=== PATIENT | male | born 1975 | race Caucasian/White ===

== ENCOUNTER 2016-11-26 07:32 | Emergency (ER) | payer MEDICAID ==
[2016-11-26 07:43] VITALS: BP 144/93
--- NOTE | 2016-11-26 07:59 | ER Document Report ---
HPI - HPI Patient complains to provider of: sore throat Onset: Yesterday Severity: Mild Pain Level: 2 Context: Patient presents to the emergency department with reports of sore throat that started yesterday. He reports he felt a little congested yesterday and this morning started hurting. He denies trouble swallowing. Reports children past history of strep. Denies other symptoms such as fever vomiting diarrhea. Associated Symptoms: Sore throat Exacerbated by: Denies Relieved by: Denies Similar symptoms previously: No Recently seen / treated by doctor: No - REPRODUCTIVE Reproductive: DENIES: : - DERM Skin Color: Normal Past Medical History - General Information source: Patient - Social History Smoking Status: Never Smoker Chew tobacco use (# tins/day): No Frequency of alcohol use: None Drug Abuse: None Lives with: Family Family History: CAD, DM, Hypertension Patient has suicidal ideation: No Patient has homicidal ideation: No - Past Medical History Cardiac Medical History: Reports: Hx Hypercholesterolemia, Hx Hypertension Denies: Hx Coronary Artery Disease, Hx Heart Attack Pulmonary Medical History: Reports: Hx Asthma - IN CHILDHOOD, Hx Pneumonia - pt states at least 10 years ago Denies: Hx Bronchitis, Hx COPD Neurological Medical History: Reports: Hx Seizures - LAST SEIZURE 05/02/16, POSSIBLY 2-3/DAY OR 1/WEEK,OFTEN AT NIGHT. Denies: Hx Cerebrovascular Accident Endocrine Medical History: Reports: Hx Diabetes Mellitus Type 1, Hx Diabetes Mellitus Type 2 Renal/ Medical History: Denies: Hx Peritoneal Dialysis GI Medical History: Reports: Hx Ulcer - WHEN HE WAS 12 TOOK MEDS FOR 1 YEAR. Denies: Hx Hepatitis, Hx Hiatal Hernia Musculoskeltal Medical History: Reports Hx Arthritis Psychiatric Medical History: Reports: Hx Anxiety, Hx Depression Infectious Medical History: Denies: Hx Hepatitis Past Surgical History: Reports: Hx Abdominal Surgery - hernia repair, Hx Cardiac Catheterization, Hx Orthopedic Surgery - rt foot. Denies: Hx Open Heart Surgery, Hx Pacemaker - Immunizations Immunizations up to date: Yes Hx Diphtheria, Pertussis, Tetanus Vaccination: Yes Hx Pneumococcal Vaccination: 07/17/15 Vertical Provider Document - CONSTITUTIONAL Agree With Documented VS: Yes Exam Limitations: No Limitations General Appearance: WD/WN, No Apparent Distress - INFECTION CONTROL TRAVEL OUTSIDE OF THE [place] IN LAST 30 DAYS: No - HEENT HEENT: Atraumatic, Normocephalic, Pharyngeal Erythema - No peritonsillar abscess good clear voice no trismus. negative: Pharyngeal Exudate - NECK Neck: Normal Inspection, Supple - RESPIRATORY Respiratory: Breath Sounds Normal, No Respiratory Distress O2 Sat by Pulse Oximetry: 100 - CARDIOVASCULAR Cardiovascular: Regular Rate - GI/ABDOMEN Gastrointestinal: Abdomen Soft, Abdomen Non-Tender - NEURO Level of Consciousness: Awake, Alert, Appropriate Motor/Sensory: No Motor Deficit - DERM Integumentary: Warm, Dry Course - Re-evaluation Re-evalutation: 11/26/16 Patient instructed on antibiotics. Patient also instructed on warm salt water gargles follow up with his primary care provider for recheck within 1 week. - Vital Signs Vital signs: Temp Pulse Resp BP Pulse Ox 97.3 F 93 20 144/93 H 100 11/26/16 07:40 11/26/16 07:40 11/26/16 07:40 11/26/16 07:40 11/26/16 07:40 Discharge - Discharge Clinical Impression: Sore throat, Strep throat exposure, Elevated blood pressure reading Condition: Stable Disposition: HOME, SELF-CARE Instructions: Sore Throat ([facility]), Penicillin V K ([facility]) Additional Instructions: *You have been evaluated for a sore throat, strep throat exposure *Take medication as prescribed *Warm salt water gargles and throat lozenges for comfort *Change toothbrush after two days of antibiotics *Do not let anyone drink/eat after you *Good hand washing *Follow-up with Dr Rene within one week for recheck *Return to ED for worsening condition change, needs Prescriptions: Penicillin V Potassium [Penicillin Vk 500 mg Tablet] 500 mg PO BID #20 tablet Forms: Elevated Blood Pressure Referrals: BIANKA HERNANDEZ DO [Primary Care Provider] - Follow up as needed
== END 2016-11-26 08:07 | disposition home or self-care (01) ==
LOC: ER 07:32
DX: J02.9 Acute pharyngitis, unspecified (principal); Z20.818 Contact with and (suspected) exposure to other bacterial communicable diseases; I10 Essential (primary) hypertension; E11.9 Type 2 diabetes mellitus without complications
CPT/HCPCS: 99282

== ENCOUNTER → 2016-12-02 | Outpatient (CLI) | payer MEDICAID | LOC: OD 09:56 | PROVIDERS: ATTEND Family Medicine | DX: M25.511 Pain in right shoulder (principal) ==

== ENCOUNTER 2016-12-31 11:30 | Emergency (ER) | payer MEDICAID ==
--- NOTE | 2016-12-31 12:21 | ER Document Report ---
ED Fall - General Chief Complaint: Fall Stated Complaint: FALL Notes: Patient is a 41-year-old male who presents emergency Department complaining of unwitnessed fall. States that this morning he was in the bathroom is getting up to leave and he fell. Patient is unsure if he tripped and fell or if he had a seizure. He doesn't remember. This was unwitnessed. He states that he has headache and pain to palpation over the right part of his thigh and right top of his head. States he has not pain that he has been able to move his neck without any difficulty. He also admits to right wrist pain and right hand pain. He denies any new back pain, hip pain. He has been able to ambulate since he fell. 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 Patient states that he has grandma seizures but has been put on Klonopin and Xanax. States that he is not on any antiepileptics because of allergies. His neurologist is in [place], he is due to see him March 15. PCP is Dr. Prescott. Past medical history significant for grand mal seizures from previous trauma, degenerative disc disease, diabetes, hypertension, peripheral neuropathy ROS does reveal that he has had a cough, that is been productive of greenish sputum for a couple of days. Denies any fevers or chills. Shortness of breath or wheezing. TRAVEL OUTSIDE OF THE [place] IN LAST 30 DAYS: No - Related data Allergies/Adverse Reactions: sertraline HCl [From Zoloft] Allergy (Severe, Verified 12/31/16 12:55) Seizures Dexbrompheniramine [From Drixoral Cold & Flu] Allergy (Intermediate, Verified 12:55) Rapid Irregular Heart Rate pseudoephedrine HCl [From Drixoral Cold & Flu] Allergy (Intermediate, Verified 12/31/16 12:55) Rapid Irregular Heart Rate carbamazepine [From Tegretol] Adverse Reaction (Severe, Verified 12/31/16 12:55) SEIZURE ACTIVITY WHEN COMBINED WITH LAMICTAL lamotrigine [From Lamictal] Adverse Reaction (Severe, Verified 12/31/16 12:55) SEIZURE ACTIVITY WHEN COMBINED WITH TEGRETOL buprenorphine [From Butrans] Adverse Reaction (Intermediate, Verified 12/31/16 12:55) RASH/ITCHING bees Adverse Reaction (Intermediate, Uncoded 12/31/16 12:55) SWELLING AT SITE Past Medical History - Social History Smoking Status: Never Smoker Family History: CAD, DM, Hypertension - Past Medical History Cardiac Medical History: Reports: Hx Hypercholesterolemia, Hx Hypertension Denies: Hx Coronary Artery Disease, Hx Heart Attack Pulmonary Medical History: Reports: Hx Asthma - IN CHILDHOOD, Hx Pneumonia - pt states at least 10 years ago Denies: Hx Bronchitis, Hx COPD Neurological Medical History: Reports: Hx Seizures - LAST SEIZURE 05/02/16, POSSIBLY 2-3/DAY OR 1/WEEK,OFTEN AT NIGHT. Denies: Hx Cerebrovascular Accident Endocrine Medical History: Reports: Hx Diabetes Mellitus Type 1, Hx Diabetes Mellitus Type 2 Renal/ Medical History: Denies: Hx Peritoneal Dialysis GI Medical History: Reports: Hx Ulcer - WHEN HE WAS 12 TOOK MEDS FOR 1 YEAR. Denies: Hx Hepatitis, Hx Hiatal Hernia Musculoskeltal Medical History: Reports Hx Arthritis Psychiatric Medical History: Reports: Hx Anxiety, Hx Depression Infectious Medical History: Denies: Hx Hepatitis Past Surgical History: Reports: Hx Abdominal Surgery - hernia repair, Hx Cardiac Catheterization, Hx Orthopedic Surgery - rt foot. Denies: Hx Open Heart Surgery, Hx Pacemaker - Immunizations Immunizations up to date: Yes Hx Diphtheria, Pertussis, Tetanus Vaccination: Yes Hx Pneumococcal Vaccination: 07/17/15 Review of Systems - Review of Systems Constitutional: No symptoms reported EENT: No symptoms reported Cardiovascular: No symptoms reported Respiratory: See HPI Gastrointestinal: No symptoms reported Genitourinary: No symptoms reported Male Genitourinary: No symptoms reported Musculoskeletal: See HPI Skin: No symptoms reported Hematologic/Lymphatic: No symptoms reported Neurological/Psychological: See HPI Physical Exam - Vital signs Vitals: Resp Pulse Ox 18 91 L 12/31/16 12:00 12/31/16 12:00 - Notes Notes: PHYSICAL EXAM GENERAL: Alert, interacts well. HEAD: Normocephalic, atraumatic. Tenderness over the right eye. No evidence of deformity, ecchymosis EYES: Pupils equal, round, and reactive to light. Extraocular movements intact. ENT: Oral mucosa moist, tongue midline. NECK: Full range of motion. Supple. Trachea midline. LUNGS: Chest tender over right rib cage. No evidence of crepitus, deformities, flail segment, ecchymosis. Clear to auscultation bilaterally, no wheezes, rales , or rhonchi. No respiratory distress. HEART: Regular rate and rhythm. No murmurs, gallops, or rubs. ABDOMEN: Soft, nondistended, nontender. No guarding, rebound, or rigidity.. Bowel sounds present in all 4 quadrants. EXTREMITIES: Moves all 4 extremities spontaneously. No edema, radial and dorsalis pedis pulses 2/4 bilaterally. No cyanosis. Tenderness to palpation of the right hand and right wrist. Otherwise right arm without any tenderness. NEUROLOGICAL: Alert and oriented x4. Normal speech. PSYCH: Normal affect, normal mood. SKIN: Warm, dry, normal turgor. No rashes or lesions noted. Course - Re-evaluation Re-evalutation: 12/31/16 13:31 Patient is a 41-year-old male who presents emergency department after a fall today. States he may have slipped but wasnt sure if he had a seizure. He is currently alert and oriented 4, hemodynamically stable, no acute distress and afebrile. He did have witnessed seizure activity was in the department. Patient reports that he did not take his daily morning medications. CT the head and neck do not reveal any acute injury or bleed. The hand and wrist x- ray are negative, chest x-ray is also negative. Patient does have an elevated white blood cell count at 15.6 and patient states he has had a productive cough with green sputum. We will treat clinically for pneumonia. Per [facility] protocol and guidelines, this case was discussed with supervising physician Dr. Gianluca Angel prior to discharge - Vital Signs Vital signs: Temp Pulse Resp BP Pulse Ox 99.1 F 119 H 20 124/86 H 92 12/31/16 15:00 12/31/16 15:36 12/31/16 15:36 12/31/16 15:00 12/31/16 15:36 - Laboratory Result Diagrams: 12/31/16 12:00 12/31/16 12:00 Laboratory results interpreted by me: 12/31/16 12/31/16 12/31/16 11:38 12:00 12:00 WBC 15.6 H Absolute Neutrophils 12.0 H Chloride 96 L Glucose 255 H POC Glucose 250 H Urine Glucose (UA) 12/31/16 13:43 WBC Absolute Neutrophils Chloride Glucose POC Glucose Urine Glucose (UA) >=500 H - Diagnostic Test Radiology reviewed: Image reviewed, Reports reviewed Discharge - Discharge Clinical Impression: Asthma, Fall Condition: Good Disposition: HOME, SELF-CARE Instructions: Ice Packs (OM) Additional Instructions: -You did not sustain any injury during her fall today. -Please follow-up with your primary care provider next week ASTHMA: You have been diagnosed as having asthma. This is a condition where there is episodic tightness in the bronchial tubes. Allergies, infections, and polluted or cold air may be contributing factors. Emergency treatment of a severe asthma attack may include adrenaline shots , or bronchodilator aerosol. You may feel lightheaded, have a decreased exercise tolerance and a rapid pulse for an hour or two. Rest and get plenty of fluids. Home treatment of asthma requires bronchodilator drugs. These can be administered by injection, inhalation, or by mouth. Antibiotics and corticosteroids may be required for some patients. You should avoid chemical fumes, dusts, pollens, and exercising in very cold or dry air. If you smoke, stop!! If you develop a fever, increased wheezing, chest pain, or severe shortness of breath, you should contact the doctor immediately. STEROID MEDICATION: You have been given an injection of or oral medicine of the cortisone/ steroid class. This medication is used to control inflammation or allergy. Frank t is usually only given for a short period of time, until the acute process subsides. There are usually no side effects from short-term use of cortisone-like medications. Some persons feel an increased sense of well-being and are not sleepy at bedtime. Long-term use of cortisone medications is best avoided, unless required for a severe condition. If your condition does not remit, or relapses after the course of corticosteroid medication, you should consult your physician. INHALED BRONCHODILATORS: You have received treatment(s) of and/or prescription for an inhaled bronchodilator -- a medication which stimulates the airways in the lung to dilate. This improves the flow of air in asthma, bronchitis, and emphysema. These medicines have some similarity to adrenaline, and can cause similar side effects: shakiness, racing heart, and a sense of nervousness. These side effects decrease with time. Contact your doctor if these side effects are severe. Do not over-use the medicine. Too-frequent use of the inhaler may make it ineffective. Call your doctor if the inhaler is not controlling your symptoms at the prescribed doses. SMOKING: If you smoke, you should stop smoking. The tar and chemicals in cigarette smoke are harmful. Smoking has been shown to cause: emphysema chronic bronchitis lung cancer mouth and throat cancer stomach and pancreas cancer premature aging defects In addition, smoking increases ear and lung infections in children of smokers. ANTIBIOTIC THERAPY: You have been given an antibiotic prescription. It's important that you take all the medication, unless instructed otherwise by your physician. Failure to complete the entire course can result in relapse of your condition. Common side effects of antibiotics include nausea, intestinal cramping, or diarrhea. Women may develop vaginal yeast infections, and babies can get yeast (thrush) in the mouth following the use of antibiotics. Contact your physician if you develop significant side effects from this medication. Allergy to this antibiotic can result in hives, wheezing, faintness, or itching. If symptoms of allergy occur, stop the medication and call your doctor. AZITHROMYCIN: Azithromycin (Zithromax) is a broad spectrum antibiotic in the same class as erythromycin. It can treat a variety of bacterial infections, but is most frequently used for respiratory infections. Azithromycin is extremely long-lasting. It accumulates in body tissues and continues to kill bacteria for many days. In order to improve absorption, Azithromycin should be taken at least one hour before or two hours after a meal. It does not have the same strong tendency to upset the stomach as erythromycin and is usually very well tolerated. Patients who have had a rash or other true allergic reactions to erythromycin should not take this medication. Call if you develop gastrointestinal distress, severe diarrhea, rash, hives, itching, or shortness of breath. USE OF ACETAMINOPHEN: Acetaminophen may be taken for pain relief or fever control. It's much safer than aspirin, offering a wider range of "safe" dosages. It is safe during . Some brand names are Tylenol, Panadol, Datril, Anacin 3, Tempra, and Liquiprin. Acetaminophen can be repeated every four hours. The following are maximum recommended dosages: USE OF ACETAMINOPHEN (Tylenol): Acetaminophen may be taken for pain relief or fever control. It's much safer than aspirin, offering a wider range of "safe" dosages. It is safe during . Some brand names are Tylenol, Panadol, Datril, Anacin 3, Tempra, and Liquiprin. Acetaminophen can be repeated every four hours. The following are maximum recommended dosages: WEIGHT Dose Drops Elixir Chewable( 80mg) (LBS.) drprs=droppers tsp=teaspoon 6 40 mg 0.4 ml (1/2) 6-11 80 mg 0.8 ml (full) tsp 1 tab 12-16 120 mg 1 1/2 drprs 3/4 tsp 1 1/2 tabs 17-23 160 mg 2 drprs 1 tsp 2 tabs 24-30 240 mg 3 drprs 1 1/2 tsp 3 tabs 30-35 320 mg 2 tsp 4 tabs 36-41 360 mg 2 1/4 tsp 4 1/2 tabs 42-47 400 mg 2 1/2 tsp 5 tabs 48-53 480 mg 3 tsp 6 tabs 54-59 520 mg 3 1/4 tsp 6 1/2 tabs 60-64 560 mg 3 1/2 tsp 7 tabs 65-70 600 mg 3 3/4 tsp 7 1/2 tabs 71-76 640 mg 4 tsp 8 tabs 77-82 720 mg 4 1/2 tsp 9 tabs 83-88 800 mg 5 tsp 10 tabs >89 pounds or adults 650 mg to 900 mg Acetaminophen can be repeated every four hours. Maximum dose not to exceed 4000 mg a day. These maximum recommended dosages are slightly higher than the dosages written on the product container, but these dosages are very safe and below the toxic dosage for acetaminophen. FOLLOW-UP CARE: If you have been referred to a physician for follow-up care, call the physician s office for an appointment as you were instructed or within the next two days. If you experience worsening or a significant change in your symptoms, notify the physician immediately or return to the Emergency Department at any time for re-evaluation. Prescriptions: Albuterol Sulfate [Proair HFA Inhalation Aerosol 8.5 gm MDI] 2 puff IH Q4H PRN # 1 mdi PRN Reason: Azithromycin [Zithromax 250 mg Tablet] 250 mg PO ASDIR PRN #6 tablet PRN Reason: Prednisone [Deltasone 10 mg Tablet] 10 mg PO ASDIR PRN #21 tablet PRN Reason: Forms: Elevated Blood Pressure, Return to Work Referrals: BIANKA PRESCOTT DO [Primary Care Provider] - Follow up in 1 week
[2016-12-31 12:35] LABS: ABSOLUTE BASOPHILS # (AUTO) 0.1 10^3/uL (0.0-0.2); ABSOLUTE EOSINOPHILS # (AUTO) 0.2 10^3/uL (0.0-0.6); ABSOLUTE LYMPHOCYTES (AUTO) 2.3 10^3/uL (0.5-4.7); BASOPHILS % (AUTO) 0.4 % (0-2); EOSINOPHILS % (AUTO) 1.2 % (0-6); HEMOGLOBIN 14.7 g/dL (13.5-17.0); HGB HCT DIFFERENCE 0.1; LYMPHOCYTES % (AUTO) 14.5 % (13-45); MEAN CORPUSCULAR HEMOGLOBIN 27.7 pg (27.0-33.4); MEAN CORPUSCULAR HGB CONC 33.3 g/dL (32.0-36.0); MEAN CORPUSCULAR VOLUME 83 fl (80-97); MONOCYTES % (AUTO) 6.7 % (3-13); RED BLOOD COUNT 5.28 10^6/uL (4.35-5.55); RED CELL DISTRIBUTION WIDTH 13.8 % (11.5-14.0); SEGMENTED NEUTROPHILS % (AUTO) 77.2 % (42-78); WHITE BLOOD COUNT 15.6 10^3/uL (4.0-10.5)
[2016-12-31] MEDS ORDERED: CLONAZEPAM 1 MG TABLET PO ONE (12:40)
[2016-12-31 12:42] LABS: PROTHROMBIN TIME 11.9 SEC (11.4-15.4)
[2016-12-31 13:08] LABS: BLOOD UREA NITROGEN 17 mg/dL (7-20); CARBON DIOXIDE 27 mmol/L (22-30); CHLORIDE 96 mmol/L (98-107); CREATININE RESULT 1.03 mg/dL (0.52-1.25); GLUCOSE 255 mg/dL (75-110); POTASSIUM 4.5 mmol/L (3.6-5.0)
[2016-12-31 13:09] LABS: ALANINE AMINOTRANSFERASE 57 U/L (21-72); ALBUMIN 4.5 g/dL (3.5-5.0); ALKALINE PHOSPHATASE 95 U/L (38-126); ANION GAP 15 (5-19); ASPARTATE AMINO TRANSFERASE 31 U/L (17-59); SODIUM 138.3 mmol/L (137-145); TOTAL PROTEIN 7.9 g/dL (6.3-8.2)
[2016-12-31] MEDS ORDERED: LEVALBUTEROL HCL NEB 1.25 MG/3 ML AMPUL NEB ONE (13:45)
[2016-12-31 14:19] LABS: APPEARANCE,URINE CLEAR; BILIRUBIN,URINE NEGATIVE (NEGATIVE); GLUCOSE, URINE >=500 mg/dL (NEGATIVE); KETONES,URINE NEGATIVE (NEGATIVE); LEUKOCYTE ESTERASE,URINE NEGATIVE (NEGATIVE); NITRITE,URINE NEGATIVE (NEGATIVE); PROTEIN,URINE NEGATIVE (NEGATIVE); URINE SPECIFIC GRAVITY 1.027; UROBILINOGEN,URINE NEGATIVE mg/dL (<2.0)
[2016-12-31] MEDS ORDERED: IPRATROPIUM/ALBUTEROL 0.5-2.5 MG/3 ML AMPUL NEB ONE (14:27)
[2016-12-31] MEDS ORDERED: PREDNISONE 20 MG TABLET PO ONE (14:27)
[2016-12-31 15:12] VITALS: BP 124/86
== END 2016-12-31 15:37 | disposition home or self-care (01) ==
LOC: ER 11:30
DX: R51 Headache (principal); M79.651 Pain in right thigh; M25.531 Pain in right wrist; M79.641 Pain in right hand; W19.XXXA Unspecified fall, initial encounter; J45.909 Unspecified asthma, uncomplicated; R56.9 Unspecified convulsions; T42.4X6A Underdosing of benzodiazepines, initial encounter; Z91.14 Patient's other noncompliance with medication regimen; S09.90XS Unspecified injury of head, sequela; X58.XXXS Exposure to other specified factors, sequela; R05 Cough; I10 Essential (primary) hypertension; E11.42 Type 2 diabetes mellitus with diabetic polyneuropathy; Z88.8 Allergy status to other drugs, medicaments and biological substances; Z79.899 Other long term (current) drug therapy
CPT/HCPCS: 94640; 99284; 36415; 82962; 83735; 85025; 85610; 80053; 81001; 71010; 73120; 73100; 70450; 72125; J3490 ×2; J7512; J7620

== ENCOUNTER 2017-02-25 11:57 | Emergency (ER) | payer OTHER, MEDICAID ==
--- NOTE | 2017-02-25 12:38 | ER Document Report ---
ED Seizure - General Chief Complaint: Probable Seizure Stated Complaint: SEIZURES Time Seen by Provider: 02/25/17 12:13 Mode of Arrival: Medic Information source: Patient Notes: Patient states that he has a history of pseudoseizures and had a seizure today while waiting in the hospital for special care. Patient states that his seizures are brought on by stress and he suspects that this is what prompted his pseudoseizure prior to arrival. Patient states that he was sitting on a chair and started to have generalized shaking. Patient's mother was at his side and witnessed the entire occurrence. Because patient was at the hospital for special care, staff at the hospital for special care felt that it was necessary that he be transferred to the hospital for further evaluation. Patient states that he typically has pseudoseizures almost daily and this is typical for his usual seizure activity. Patient does state that his neurologist feels that he has pseudoseizures although his primary doctor and his mental health provider are concerned that patient may have an underlying seizure disorder other than pseudoseizures. Patient denies any recent illness or fever. Patient denies any headache pain. Patient states he did not take any of his usual home medications today as he did not want to be drowsy while at Court. TRAVEL OUTSIDE OF THE [place] IN LAST 30 DAYS: No - HPI Patient complains to provider of: History of seizures - Pseudoseizures Quality of pain: No pain Pain Level: Denies Continued on arrival to ED: No Can details of seizure be obtained/verified: Yes Episode witnessed (by whom): Yes - mother Preceding symptoms/context: denies: Recent illness/fever, Recent drug use, Changed meds or dosage History of: TBI Character of seizure: Generalized shaking, Staring Post-ictal symptoms: None Injuries: None Associated Symptoms: None - Related Data Allergies/Adverse Reactions: sertraline HCl [From Zoloft] Allergy (Severe, Verified 12/31/16 12:55) Seizures Dexbrompheniramine [From Drixoral Cold & Flu] Allergy (Intermediate, Verified 12:55) Rapid Irregular Heart Rate pseudoephedrine HCl [From Drixoral Cold & Flu] Allergy (Intermediate, Verified 12/31/16 12:55) Rapid Irregular Heart Rate carbamazepine [From Tegretol] Adverse Reaction (Severe, Verified 12/31/16 12:55) SEIZURE ACTIVITY WHEN COMBINED WITH LAMICTAL lamotrigine [From Lamictal] Adverse Reaction (Severe, Verified 12/31/16 12:55) SEIZURE ACTIVITY WHEN COMBINED WITH TEGRETOL buprenorphine [From Butrans] Adverse Reaction (Intermediate, Verified 12/31/16 12:55) RASH/ITCHING bees Adverse Reaction (Intermediate, Uncoded 12/31/16 12:55) SWELLING AT SITE Home Medications: Current Home Medications Insulin Aspart [Novolog Insulin 100 Unit/1 ml 10 ml] 0 unit SUBCUT .SLD SCALE [History] Insulin Glargine,Hum.rec.anlog [Lantus Insulin 100 Unit/mL] 1 units SQ ASDIR PRN 02/25/17 [History] Morphine Sulfate [Ms Contin] 15 mg PO Q12 02/25/17 [History] Naloxone HCl [Narcan] 4 mg NS ASDIR PRN 02/25/17 [History] Ropinirole HCl 1 mg PO QHS 02/25/17 [History] Triazolam 0.25 mg PO QHS 02/25/17 [History] Past Medical History - General Information source: Patient, Parent - Social History Smoking Status: Never Smoker Frequency of alcohol use: None Drug Abuse: None Occupation: none Lives with: Family Family History: CAD, DM, Hypertension - Past Medical History Cardiac Medical History: Reports: Hx Hypercholesterolemia, Hx Hypertension Denies: Hx Coronary Artery Disease, Hx Heart Attack Pulmonary Medical History: Reports: Hx Asthma - IN CHILDHOOD, Hx Pneumonia - pt states at least 10 years ago Denies: Hx Bronchitis, Hx COPD Neurological Medical History: Reports: Hx Seizures - LAST SEIZURE 05/02/16, POSSIBLY 2-3/DAY OR 1/WEEK,OFTEN AT NIGHT, pseudoseiz. Denies: Hx Cerebrovascular Accident Endocrine Medical History: Reports: Hx Diabetes Mellitus Type 1, Hx Diabetes Mellitus Type 2 Renal/ Medical History: Denies: Hx Peritoneal Dialysis GI Medical History: Reports: Hx Ulcer - WHEN HE WAS 12 TOOK MEDS FOR 1 YEAR. Denies: Hx Hepatitis, Hx Hiatal Hernia Musculoskeltal Medical History: Reports Hx Arthritis Psychiatric Medical History: Reports: Hx Anxiety, Hx Depression Infectious Medical History: Denies: Hx Hepatitis Past Surgical History: Reports: Hx Abdominal Surgery - hernia repair, Hx Cardiac Catheterization, Hx Orthopedic Surgery - rt foot. Denies: Hx Open Heart Surgery, Hx Pacemaker - Immunizations Immunizations up to date: Yes Hx Diphtheria, Pertussis, Tetanus Vaccination: Yes Hx Pneumococcal Vaccination: 07/17/15 Review of Systems - Review of Systems Constitutional: No symptoms reported. denies: Fever, Recent illness EENT: No symptoms reported Cardiovascular: No symptoms reported. denies: Chest pain Respiratory: No symptoms reported. denies: Cough, Short of breath Gastrointestinal: No symptoms reported. denies: Abdominal pain, Diarrhea, Nausea, Vomiting Genitourinary: No symptoms reported Male Genitourinary: No symptoms reported Musculoskeletal: No symptoms reported Skin: No symptoms reported Hematologic/Lymphatic: No symptoms reported Neurological/Psychological: Seizure. denies: Weakness, Headaches, Speech impairment Physical Exam - Vital signs Vitals: Resp Pulse Ox 16 97 02/25/17 12:26 02/25/17 12:26 - General General appearance: Appears well, Alert In distress: None - HEENT Head: Normocephalic, Atraumatic Eyes: Normal Conjunctiva: Normal Pupils: PERRL Nasal: Normal Mouth/Lips: Normal Mucous membranes: Normal Pharynx: Normal Neck: Normal, Supple. No: Lymphadenopathy, Meningismus - Respiratory Respiratory status: No respiratory distress Chest status: Nontender Breath sounds: Normal. No: Rales, Rhonchi, Stridor, Wheezing Chest palpation: Normal - Cardiovascular Rhythm: Regular Heart sounds: S1 appreciated, S2 appreciated Murmur: No - Abdominal Inspection: Normal Distension: No distension Bowel sounds: Normal Tenderness: Nontender - Back Back: Normal, Nontender. No: CVA tenderness - Extremities General upper extremity: Normal inspection, Normal strength General lower extremity: Normal inspection, Normal strength - Neurological Neuro grossly intact: Yes Carrie Coma Scale Eye Opening: Spontaneous Carrie Coma Scale Verbal: Oriented Carrie Coma Scale Motor: Obeys Commands [place] Coma Scale Total: 15 - Psychological Associated symptoms: Normal affect, Normal mood - Skin Skin Temperature: Warm Skin Moisture: Dry Skin Color: Normal Course - Re-evaluation Re-evalutation: 02/25/17 14:39 Patient continues awake, alert and oriented. Patient denies any complaints at present. Consulted with Dr. Small regarding patient presentation and diagnostic test results. Reviewed patient's EKG. Does not recommend any additional testing. Agrees with discharge plan of care. Patient encouraged to follow-up with his primary doctor as well as his neurologist for further evaluation. - Vital Signs Vital signs: Temp Pulse Resp BP Pulse Ox 17 134/93 H 97 02/25/17 15:44 02/25/17 15:45 02/25/17 15:44 - Laboratory Result Diagrams: 02/25/17 13:05 02/25/17 13:05 Laboratory results interpreted by me: 02/25/17 02/25/17 02/25/17 13:02 13:05 13:05 RBC 5.75 H BUN 23 H Glucose 191 H POC Glucose 179 H Total Protein 8.4 H Labs- Entire Visit 02/25/17 02/25/17 02/25/17 13:02 13:05 13:05 WBC 8.6 RBC 5.75 H Hgb 16.1 Hct 47.7 MCV 83 MCH 28.0 MCHC 33.7 RDW 13.8 Plt Count 212 Seg Neutrophils % 63.1 Lymphocytes % 30.0 Monocytes % 5.6 Eosinophils % 0.8 Basophils % 0.5 Absolute Neutrophils 5.4 Absolute Lymphocytes 2.6 Absolute Monocytes 0.5 Absolute Eosinophils 0.1 Absolute Basophils 0.0 Sodium 141.6 Potassium 4.3 Chloride 101 Carbon Dioxide 24 Anion Gap 17 BUN 23 H Creatinine 1.08 Est GFR ( Amer) > 60 Est GFR (Non-Af Amer) > 60 Glucose 191 H POC Glucose 179 H Calcium 10.1 Total Bilirubin 0.9 Direct Bilirubin 0.4 Indirect Bilirubin Not Reportable Neonat Total Bilirubin Not Reportable AST 33 ALT 60 Alkaline Phosphatase 98 Total Protein 8.4 H Albumin 4.9 - EKG Interpretation by Me EKG shows normal: Sinus rhythm When compared to previous EKG there are: No significant change Discharge - Discharge Clinical Impression: History of pseudoseizure, Seizure-like activity Condition: Stable Disposition: HOME, SELF-CARE Additional Instructions: Return immediately for any new or worsening symptoms Followup with your primary care provider, call tomorrow to make a followup appointment Follow-up with your neurologist for further evaluation of your seizures Take your usual medications as prescribed at home Referrals: BIANKA HERNANDEZ DO [Primary Care Provider] - Follow up tomorrow
[2017-02-25 13:22] LABS: ABSOLUTE EOSINOPHILS # (AUTO) 0.1 10^3/uL (0.0-0.6); ABSOLUTE LYMPHOCYTES (AUTO) 2.6 10^3/uL (0.5-4.7); ABSOLUTE MONOCYTES (AUTO) 0.5 10^3/uL (0.1-1.4); ABSOLUTE NEUT (AUTO) 5.4 10^3/uL (1.7-8.2); BASOPHILS % (AUTO) 0.5 % (0-2); EOSINOPHILS % (AUTO) 0.8 % (0-6); HEMATOCRIT 47.7 % (37.9-51.0); HEMOGLOBIN 16.1 g/dL (13.5-17.0); HGB HCT DIFFERENCE 0.6; MEAN CORPUSCULAR HGB CONC 33.7 g/dL (32.0-36.0); MEAN CORPUSCULAR VOLUME 83 fl (80-97); MONOCYTES % (AUTO) 5.6 % (3-13); RED BLOOD COUNT 5.75 10^6/uL (4.35-5.55); RED CELL DISTRIBUTION WIDTH 13.8 % (11.5-14.0); SEGMENTED NEUTROPHILS % (AUTO) 63.1 % (42-78); WHITE BLOOD COUNT 8.6 10^3/uL (4.0-10.5)
--- NOTE | 2017-02-25 13:41 | EKG REPORT ---
SEVERITY:- ABNORMAL ECG - SINUS RHYTHM : Confirmed by: Kade Calles 25-Feb-2017 13:40:45
[2017-02-25 13:48] LABS: ALANINE AMINOTRANSFERASE 60 U/L (21-72); ALBUMIN 4.9 g/dL (3.5-5.0); ALKALINE PHOSPHATASE 98 U/L (38-126); ANION GAP 17 (5-19); ASPARTATE AMINO TRANSFERASE 33 U/L (17-59); BILIRUBIN,DIRECT 0.4 mg/dL (0.0-0.4); BILIRUBIN,TOTAL 0.9 mg/dL (0.2-1.3); BLOOD UREA NITROGEN 23 mg/dL (7-20); CALCIUM 10.1 mg/dL (8.4-10.2); CARBON DIOXIDE 24 mmol/L (22-30); CHLORIDE 101 mmol/L (98-107); CREATININE RESULT 1.08 mg/dL (0.52-1.25); GLUCOSE 191 mg/dL (75-110); POTASSIUM 4.3 mmol/L (3.6-5.0); SODIUM 141.6 mmol/L (137-145); TOTAL PROTEIN 8.4 g/dL (6.3-8.2)
[2017-02-25 15:46] VITALS: BP 134/93
== END 2017-02-25 15:46 | disposition home or self-care (01) ==
LOC: ER 11:57
DX: F44.5 Conversion disorder with seizures or convulsions (principal); I10 Essential (primary) hypertension; E11.9 Type 2 diabetes mellitus without complications; Z91.14 Patient's other noncompliance with medication regimen; Z87.820 Personal history of traumatic brain injury; Z88.8 Allergy status to other drugs, medicaments and biological substances
CPT/HCPCS: 36415; 80053; 82962; 85025; 93005; 93010; 99284

== ENCOUNTER 2017-06-01 00:51 | Emergency (ER) | payer MEDICAID, OTHER ==
[2017-06-01 02:00] LABS: ABSOLUTE EOSINOPHILS # (AUTO) 0.1 10^3/uL (0.0-0.6); ABSOLUTE LYMPHOCYTES (AUTO) 3.3 10^3/uL (0.5-4.7); ABSOLUTE MONOCYTES (AUTO) 0.8 10^3/uL (0.1-1.4); ABSOLUTE NEUT (AUTO) 4.5 10^3/uL (1.7-8.2); BASOPHILS % (AUTO) 0.4 % (0-2); HEMOGLOBIN 15.7 g/dL (13.5-17.0); HGB HCT DIFFERENCE 0.1; LYMPHOCYTES % (AUTO) 37.8 % (13-45); MEAN CORPUSCULAR HGB CONC 33.4 g/dL (32.0-36.0); MEAN CORPUSCULAR VOLUME 87 fl (80-97); MONOCYTES % (AUTO) 8.9 % (3-13); RED BLOOD COUNT 5.41 10^6/uL (4.35-5.55); RED CELL DISTRIBUTION WIDTH 13.8 % (11.5-14.0); SEGMENTED NEUTROPHILS % (AUTO) 51.9 % (42-78); WHITE BLOOD COUNT 8.6 10^3/uL (4.0-10.5)
[2017-06-01 02:24] LABS: ALANINE AMINOTRANSFERASE 67 U/L (21-72); ALBUMIN 4.6 g/dL (3.5-5.0); ALKALINE PHOSPHATASE 128 U/L (38-126); ANION GAP 16 (5-19); ASPARTATE AMINO TRANSFERASE 35 U/L (17-59); BILIRUBIN,DIRECT 0.5 mg/dL (0.0-0.4); BILIRUBIN,TOTAL 0.6 mg/dL (0.2-1.3); BLOOD UREA NITROGEN 29 mg/dL (7-20); CALCIUM 9.9 mg/dL (8.4-10.2); CARBON DIOXIDE 24 mmol/L (22-30); CHLORIDE 99 mmol/L (98-107); CREATININE RESULT 1.13 mg/dL (0.52-1.25); GLUCOSE 238 mg/dL (75-110); POTASSIUM 4.5 mmol/L (3.6-5.0); SODIUM 139.1 mmol/L (137-145); TOTAL PROTEIN 7.7 g/dL (6.3-8.2)
[2017-06-01 02:27] LABS: ALCOHOL < 10 mg/dL (NONE DETECTED)
--- NOTE | 2017-06-01 02:36 | ER Document Report ---
ED General - General Chief Complaint: Psych Problem Stated Complaint: PYSCH Time Seen by Provider: 06/01/17 01:11 Notes: Patient is a 41-year-old male with past medical history of bipolar disorder, chronic pain, epilepsy who presents with homicidal ideation as well as suicidal ideation. Patient admits that these are passive intentions and that he has not made any specific plans to harm anybody else or himself but he does admit that he has access to a "lot of guns". Patient directs his anger towards his uncle and multiple children living in the house where he lives. However he notes that he feels his underlying this regulated mood is contributing more to these feelings versus actual actions from these individuals. He is uncertain if he has had similar symptoms in the past. Admits that he is not currently taking anything for his bipolar disorder. He did walk 6 miles from his home to the emergency department today after getting into an argument there. Denies any acute medical complaints other than a blood blister on the bottom of his right foot from walking. TRAVEL OUTSIDE OF THE [place] IN LAST 30 DAYS: No - Related Data Allergies/Adverse Reactions: sertraline HCl [From Zoloft] Allergy (Severe, Verified 12/31/16 12:55) Seizures Dexbrompheniramine [From Drixoral Cold & Flu] Allergy (Intermediate, Verified 12:55) Rapid Irregular Heart Rate pseudoephedrine HCl [From Drixoral Cold & Flu] Allergy (Intermediate, Verified 12/31/16 12:55) Rapid Irregular Heart Rate carbamazepine [From Tegretol] Adverse Reaction (Severe, Verified 12/31/16 12:55) SEIZURE ACTIVITY WHEN COMBINED WITH LAMICTAL lamotrigine [From Lamictal] Adverse Reaction (Severe, Verified 12/31/16 12:55) SEIZURE ACTIVITY WHEN COMBINED WITH TEGRETOL buprenorphine [From Butrans] Adverse Reaction (Intermediate, Verified 12/31/16 12:55) RASH/ITCHING bees Adverse Reaction (Intermediate, Uncoded 12/31/16 12:55) SWELLING AT SITE Past Medical History - General Information source: Patient - Social History Smoking Status: Never Smoker Frequency of alcohol use: None Drug Abuse: None Lives with: Family Family History: CAD, DM, Hypertension Patient has suicidal ideation: No Patient has homicidal ideation: No - Past Medical History Cardiac Medical History: Reports: Hx Hypercholesterolemia, Hx Hypertension Denies: Hx Coronary Artery Disease, Hx Heart Attack Pulmonary Medical History: Reports: Hx Asthma - IN CHILDHOOD, Hx Pneumonia - pt states at least 10 years ago Denies: Hx Bronchitis, Hx COPD Neurological Medical History: Reports: Hx Seizures - LAST SEIZURE 05/02/16, POSSIBLY 2-3/DAY OR 1/WEEK,OFTEN AT NIGHT, pseudoseiz. Denies: Hx Cerebrovascular Accident Endocrine Medical History: Reports: Hx Diabetes Mellitus Type 1, Hx Diabetes Mellitus Type 2 Renal/ Medical History: Denies: Hx Peritoneal Dialysis GI Medical History: Reports: Hx Ulcer - WHEN HE WAS 12 TOOK MEDS FOR 1 YEAR. Denies: Hx Hepatitis, Hx Hiatal Hernia Musculoskeltal Medical History: Reports Hx Arthritis Psychiatric Medical History: Reports: Hx Anxiety, Hx Depression Infectious Medical History: Denies: Hx Hepatitis Past Surgical History: Reports: Hx Abdominal Surgery - hernia repair, Hx Cardiac Catheterization, Hx Orthopedic Surgery - rt foot. Denies: Hx Open Heart Surgery, Hx Pacemaker - Immunizations Immunizations up to date: Yes Hx Diphtheria, Pertussis, Tetanus Vaccination: Yes Hx Pneumococcal Vaccination: 07/17/15 Review of Systems - Review of Systems Notes: Constitutional: Negative for fever. HENT: Negative for sore throat. Eyes: Negative for visual changes. Cardiovascular: Negative for chest pain. Respiratory: Negative for shortness of breath. Gastrointestinal: Negative for abdominal pain, vomiting or diarrhea. Genitourinary: Negative for dysuria. Musculoskeletal: Negative for back pain. Skin: Negative for rash. Neurological: Negative for headaches, weakness or numbness. 10 point ROS negative except as marked above and in HPI. Physical Exam - Vital signs Vitals: Temp Pulse Resp BP Pulse Ox 98 F 133 H 18 146/101 H 98 06/01/17 00:58 06/01/17 00:58 06/01/17 00:58 06/01/17 00:58 06/01/17 00:58 Interpretation: Tachycardic Notes: PHYSICAL EXAMINATION: GENERAL: Well-appearing, well-nourished and in no acute distress. HEAD: Atraumatic, normocephalic. EYES: Pupils equal round and reactive to light, extraocular movements intact, sclera anicteric, conjunctiva are normal. ENT: nares patent, oropharynx clear without exudates. Moist mucous membranes. NECK: Normal range of motion, supple without lymphadenopathy LUNGS: Breath sounds clear to auscultation bilaterally and equal. No wheezes rales or rhonchi. HEART: Regular tachycardia without murmurs ABDOMEN: Soft, nontender, normoactive bowel sounds. No guarding, no rebound. No masses appreciated. EXTREMITIES: Normal range of motion, no pitting or edema. No cyanosis. NEUROLOGICAL: No focal neurological deficits. Moves all extremities spontaneously and on command. PSYCH: Normal mood, normal affect. SKIN: Warm, Dry, normal turgor, no rashes or lesions noted. Course - Re-evaluation Re-evalutation: 06/01/17 02:45 Patient presents with suicidal and homicidal ideation that are both passive with no clear plan or intention to complete these. Admits that he is here to speak to psychiatry so he can "figure out what is wrong with my mood". Patient denies any intention to follow through on these ideas. Fortunately he is not on any current mood stabilizer and believes that his bipolar disorder is causing the exacerbation of his current mood swings. Patient did arrive tachycardic after walking approximately 6 miles which is appropriate given his morbid obesity and deconditioning for that level of activity. He will provide oral fluids I do not see an indication for acute IV fluids. His medical screening laboratories and examination are otherwise unremarkable. He is cleared for evaluation by psychiatry. He does not meet IVC criteria. - Vital Signs Vital signs: Temp Pulse Resp BP Pulse Ox 98 F 133 H 18 146/101 H 98 06/01/17 00:58 06/01/17 00:58 06/01/17 00:58 06/01/17 00:58 06/01/17 00:58 - Laboratory Result Diagrams: 06/01/17 01:50 06/01/17 01:50 Laboratory results interpreted by me: 06/01/17 01:50 BUN 29 H Glucose 238 H Direct Bilirubin 0.5 H Alkaline Phosphatase 128 H Salicylates < 1.0 L Acetaminophen < 10 L - EKG Interpretation by Me Additional EKG results interpreted by me: 06/01/17 02:48 Sinus tachycardia. Rate 110. No ST elevations or depressions. QTC is 444. Discharge - Discharge Clinical Impression: Homicidal ideation Bipolar affective disorder Qualifiers: Active/Remission status: currently active Current bipolar episode type: mixed Current episode severity: unspecified Qualified Code(s): F31.60 - Bipolar disorder, current episode mixed, unspecified Condition: Fair Disposition: PSYCH HOSP/UNIT
[2017-06-01 03:58] LABS: APPEARANCE,URINE CLEAR; BILIRUBIN,URINE NEGATIVE (NEGATIVE); GLUCOSE, URINE >=500 mg/dL (NEGATIVE); KETONES,URINE NEGATIVE (NEGATIVE); LEUKOCYTE ESTERASE,URINE NEGATIVE (NEGATIVE); NITRITE,URINE NEGATIVE (NEGATIVE); PROTEIN,URINE NEGATIVE (NEGATIVE); URINE SPECIFIC GRAVITY 1.032; UROBILINOGEN,URINE NEGATIVE mg/dL (<2.0)
[2017-06-01 08:01] LABS: URINE BARBITURATES SCREEN NEGATIVE; URINE METHADONE SCREEN NEGATIVE; URINE OPIATES LOW NEGATIVE; URINE PHENCYCLIDINE SCREEN NEGATIVE
--- NOTE | 2017-06-01 08:16 | EKG REPORT ---
SEVERITY:- ABNORMAL ECG - SINUS TACHYCARDIA ABNRM R PROG, CONSIDER ASMI OR LEAD PLACEMENT : Confirmed by: Papi Parrish MD 01-Jun-2017 08:15:22
--- NOTE | 2017-06-01 12:09 | ER Document Report ---
Doctor's Note Notes: 06/01/17 12:08 Patient resting comfortably on stretcher, evaluated at bedside, no complaints at present time, requesting a meal tray for lunch, pending evaluation by mental health team with further recommendations, patient has no active suicidal or homicidal ideation at present, he denies any intent for harm to self or others, therefore he is no longer meets criteria for involuntary commitment, IVC paperwork is recommended to be rescinded and patient will be discharged with instructions for follow-up, patient is in agreement with this plan Discharge - Discharge Clinical Impression: Bipolar disorder Qualifiers: Active/Remission status: currently active Current bipolar episode type: mixed Current episode severity: unspecified Qualified Code(s): F31.60 - Bipolar disorder, current episode mixed, unspecified Condition: Stable Disposition: HOME, SELF-CARE Additional Instructions: DEPRESSION: Your evaluation reveals that you have mental depression. While symptoms may be vague, they often include disturbance of sleep, fatigue, loss of appetite , and general loss of interest in life. While depression may be a side effect of drugs, or a reaction to a major change in your life, many cases have no known cause. If depression is acute, and related to a major loss in your life, you can expect it to clear completely with time. If you have been depressed a long time , are prone to repeated bouts of depression or low mood, or have been thinking of suicide, get help. Depression can be treated with anti-depressant medication and counselling. Long-term depression will often take a few weeks to clear, even with appropriate medication. Follow-up care is important. SUICIDAL IDEATION: Suicidal ideation is a common medical term for thoughts about suicide, which may be as detailed as a formulated plan, without the suicidal act itself. Although most people who undergo suicidal ideation do not commit suicide, some go on to make suicide attempts. The range of suicidal ideation varies greatly from fleeting to detailed planning, role playing, and unsuccessful attempts. While thoughts about suicide are common, most people do not carry out serious actions to commit suicide. Based upon your evaluation and discussion with you, we do not believe you are currently at risk to act upon your thoughts of suicide. You have agreed to return to the Emergency Department, at any time , if you feel inclined to act upon your suicidal thoughts. FOLLOW-UP CARE: Please follow-up with your outpatient provider Dr. Jaylin Mcmillan, Ph.D. in 3-5 days. if you experience worsening or a significant change in your symptoms, notify the physician immediately or return to the Emergency Department at any time for re-evaluation. Referrals: BIANKA HERNANDEZ, [Primary Care Provider] - Follow up as needed
--- NOTE | 2017-06-01 14:56 | ER Document Report ---
ED Psych Disorder / Suicide - General Chief Complaint: Psych Problem Stated Complaint: PYSCH Time Seen by Provider: 06/01/17 01:11 TRAVEL OUTSIDE OF THE [place] IN LAST 30 DAYS: No - HPI Notes: Patient presents with suicidal and homicidal ideation that are both passive with no clear plan or intention to complete these. Admits that he is here to speak to psychiatry so he can "figure out what is wrong with my mood". Patient denies any intention to follow through on these ideas. Patient stated he is tired of seeing his being taken advantage of. He continued to state that his mother brought his uncle up to live with them. His uncle brought his 4 children ages 18 through 9. Patient stated that his uncle and children are "worthless." Patient disclosed he walked to [facility] ED because he was just "tired of seeing his mistreated." Patient denies homicidal and suicidal ideation. When asked about the family situation at home he stated; "I do not know what exactly I said when I first came in, but I want them to go away.. as in go to where they came from. Not for them to .. they're family." Patient does disclose past suicidal ideation however goes to therapeutic services every other week. Patient discloses he does not take any medication because he is on a high level of narcotics for pain. Patient disclosed that he has been trying to get off some of them so he can better address his mood. Patient disclosed that he is diagnosed with bipolar 2 disorder. Patient is alert and orientated to person, place, time and circumstance. Mood is euthymic with congruent affect. Patient denies current suicidal ideation stating that in the past he has however he is currently receiving therapeutic services bimonthly. Patient denies homicidal ideation stating "I do not know what exactly I said when I first came in, but I want them to go away.. as in go to where they came from. Not for them to .. they're family." Patient denies auditory and visual hallucinations. Delusions were absent and behaviors congruent with an intact reality based presentation (i.e. organized, linear, rational thinking). Eye contact was well-maintained. Intellectual abilities appear to be within the average range. Attention and concentration were good. Insight, judgment, impulse control appear to be good. Bipolar 2 disorder per history provided by patient Impression\\plan: Patient is recommended for rescind of IVC and is considered psychiatrically clear for discharge. Patient does not meet IVC criteria per [place] GS 122C. Patient denies suicidal and homicidal ideation stating "I do not know what exactly I said when I first came in, but I want them to go away.. as in go to where they came from. Not for them to .. they're family." Delusions were absent and behaviors congruent with an intact reality based presentation (i.e. organized, linear, rational thinking). Patient is recommended to continue his outpatient services for his mental health needs. Dr. Montenegro was consulted and the care management of this patient; attending physician is in agreement with recommendations and disposition. - Related Data Allergies/Adverse Reactions: sertraline HCl [From Zoloft] Allergy (Severe, Verified 12/31/16 12:55) Seizures Dexbrompheniramine [From Drixoral Cold & Flu] Allergy (Intermediate, Verified 12:55) Rapid Irregular Heart Rate pseudoephedrine HCl [From Drixoral Cold & Flu] Allergy (Intermediate, Verified 12/31/16 12:55) Rapid Irregular Heart Rate carbamazepine [From Tegretol] Adverse Reaction (Severe, Verified 12/31/16 12:55) SEIZURE ACTIVITY WHEN COMBINED WITH LAMICTAL lamotrigine [From Lamictal] Adverse Reaction (Severe, Verified 12/31/16 12:55) SEIZURE ACTIVITY WHEN COMBINED WITH TEGRETOL buprenorphine [From Butrans] Adverse Reaction (Intermediate, Verified 12/31/16 12:55) RASH/ITCHING bees Adverse Reaction (Intermediate, Uncoded 12/31/16 12:55) SWELLING AT SITE Past Medical History - General Information source: Patient - Social History Smoking Status: Never Smoker Frequency of alcohol use: None Drug Abuse: None Lives with: Family Family History: CAD, DM, Hypertension Patient has suicidal ideation: No Patient has homicidal ideation: No - Past Medical History Cardiac Medical History: Reports: Hx Hypercholesterolemia, Hx Hypertension Denies: Hx Coronary Artery Disease, Hx Heart Attack Pulmonary Medical History: Reports: Hx Asthma - IN CHILDHOOD, Hx Pneumonia - pt states at least 10 years ago Denies: Hx Bronchitis, Hx COPD Neurological Medical History: Reports: Hx Seizures - LAST SEIZURE 05/02/16, POSSIBLY 2-3/DAY OR 1/WEEK,OFTEN AT NIGHT, pseudoseiz. Denies: Hx Cerebrovascular Accident Endocrine Medical History: Reports: Hx Diabetes Mellitus Type 1, Hx Diabetes Mellitus Type 2 Renal/ Medical History: Denies: Hx Peritoneal Dialysis GI Medical History: Reports: Hx Ulcer - WHEN HE WAS 12 TOOK MEDS FOR 1 YEAR. Denies: Hx Hepatitis, Hx Hiatal Hernia Musculoskeltal Medical History: Reports Hx Arthritis Psychiatric Medical History: Reports: Hx Anxiety, Hx Depression Infectious Medical History: Denies: Hx Hepatitis Past Surgical History: Reports: Hx Abdominal Surgery - hernia repair, Hx Cardiac Catheterization, Hx Orthopedic Surgery - rt foot. Denies: Hx Open Heart Surgery, Hx Pacemaker - Immunizations Immunizations up to date: Yes Hx Diphtheria, Pertussis, Tetanus Vaccination: Yes Hx Pneumococcal Vaccination: 07/17/15 Physical Exam - Vital signs Vitals: Temp Pulse Resp BP Pulse Ox 98 F 133 H 18 146/101 H 98 06/01/17 00:58 06/01/17 00:58 06/01/17 00:58 06/01/17 00:58 06/01/17 00:58 Course - Vital Signs Vital signs: Temp Pulse Resp BP Pulse Ox 97.9 F 73 18 134/92 H 99 06/01/17 12:14 06/01/17 12:14 06/01/17 12:14 06/01/17 12:14 06/01/17 12:14 - Laboratory Result Diagrams: 06/01/17 01:50 06/01/17 01:50 Laboratory results interpreted by me: 06/01/17 06/01/17 06/01/17 01:50 03:17 07:31 BUN 29 H Glucose 238 H POC Glucose 119 H Direct Bilirubin 0.5 H Alkaline Phosphatase 128 H Urine Glucose (UA) >=500 H Salicylates < 1.0 L Acetaminophen < 10 L Discharge - Discharge Clinical Impression: Bipolar disorder Qualifiers: Active/Remission status: currently active Current bipolar episode type: mixed Current episode severity: unspecified Qualified Code(s): F31.60 - Bipolar disorder, current episode mixed, unspecified Clinical Impression: (Ruled Out): Homicidal ideation Condition: Stable Disposition: HOME, SELF-CARE Additional Instructions: DEPRESSION: Your evaluation reveals that you have mental depression. While symptoms may be vague, they often include disturbance of sleep, fatigue, loss of appetite , and general loss of interest in life. While depression may be a side effect of drugs, or a reaction to a major change in your life, many cases have no known cause. If depression is acute, and related to a major loss in your life, you can expect it to clear completely with time. If you have been depressed a long time , are prone to repeated bouts of depression or low mood, or have been thinking of suicide, get help. Depression can be treated with anti-depressant medication and counselling. Long-term depression will often take a few weeks to clear, even with appropriate medication. Follow-up care is important. SUICIDAL IDEATION: Suicidal ideation is a common medical term for thoughts about suicide, which may be as detailed as a formulated plan, without the suicidal act itself. Although most people who undergo suicidal ideation do not commit suicide, some go on to make suicide attempts. The range of suicidal ideation varies greatly from fleeting to detailed planning, role playing, and unsuccessful attempts. While thoughts about suicide are common, most people do not carry out serious actions to commit suicide. Based upon your evaluation and discussion with you, we do not believe you are currently at risk to act upon your thoughts of suicide. You have agreed to return to the Emergency Department, at any time , if you feel inclined to act upon your suicidal thoughts. FOLLOW-UP CARE: Please follow-up with your outpatient provider Dr. Jaylin Mcmillan, Ph.D. in 3-5 days. if you experience worsening or a significant change in your symptoms, notify the physician immediately or return to the Emergency Department at any time for re-evaluation. Referrals: BIANKA HERNANDEZ DO [Primary Care Provider] - Follow up as needed
[2017-06-01 15:34] VITALS: BP 133/94
== END 2017-06-01 15:34 | disposition home or self-care (01) ==
LOC: ER 00:51
DX: F31.60 Bipolar disorder, current episode mixed, unspecified (principal); R45.850 Homicidal ideations; R45.851 Suicidal ideations; R00.0 Tachycardia, unspecified; E11.9 Type 2 diabetes mellitus without complications; I10 Essential (primary) hypertension; G89.29 Other chronic pain; Z79.891 Long term (current) use of opiate analgesic; S90.821A Blister (nonthermal), right foot, initial encounter; X58.XXXA Exposure to other specified factors, initial encounter; E66.01 Morbid (severe) obesity due to excess calories; Z68.34 Body mass index [BMI] 34.0-34.9, adult; Z88.8 Allergy status to other drugs, medicaments and biological substances
CPT/HCPCS: 36415; 80053; 80307; 81001; 82962; 85025; 93005; 93010; 99285

== ENCOUNTER → 2017-06-29 | Outpatient (CLI) | payer MEDICAID ==
--- NOTE | 2017-06-29 13:38 | RADIOLOGY REPORT (SQ) ---
EXAM DESCRIPTION: C SP 4 OR 5 VIEWS COMPLETED DATE/TIME: 06/29/2017 12:42 pm REASON FOR STUDY: RADICULOPATHY, CERVICAL REGION M54.12 RADICULOPATHY, CERVICAL REGION COMPARISON: CT cervical spine 12/31/2016, 10/15/2013, 12/26/2011 NUMBER OF VIEWS: Five views. TECHNIQUE: AP, lateral, obliques and odontoid radiographic images acquired of the cervical spine. LIMITATIONS: None. FINDINGS: MINERALIZATION: Normal. ALIGNMENT: Anatomic. VERTEBRAE: Vertebral bodies of normal height. DISCS: Mild anterior osteophyte formation at C4-5 and C5-6. FORAMINA: On the right side, mild C3-4 and C5-6 foraminal narrowing is present. Moderate right C4-5 and C6-7 foraminal narrowing is present. On the left side, mild C4-5 foraminal narrowing is present. LATERAL AND POSTERIOR ELEMENTS: Facets, lateral masses and spinous processes without significant find ings. HARDWARE: None in the spine. SOFT TISSUES: No masses or calcifications. Lung apices clear. OTHER: No other significant finding. IMPRESSION: Mild degenerative changes as above TECHNICAL DOCUMENTATION: JOB ID: [id number]- All Rights Reserved
== END ==
LOC: OD 11:53
PROVIDERS: ATTEND Family Medicine
DX: M54.12 Radiculopathy, cervical region (principal)
CPT/HCPCS: 72050

== ENCOUNTER 2017-11-02 08:39 | Day surgery (SDC) | payer MEDICAID ==
[~2017-11-02 08:39] MED LIST: CEFAZOLIN 1 GM/D5W RTU 1 GM/50 ML RTUPB IV PRN
[2017-11-02] MEDS ORDERED: MIDAZOLAM 2 MG/2 ML INJ ONE (09:33)
[2017-11-02] MEDS ORDERED: ONDANSETRON HCL INJ/PF 4 MG/2 ML SDV ONE (09:33)
[2017-11-02] MEDS ORDERED: FENTANYL CITRATE INJ/PF 100 MCG/2 ML AMPUL ONE (09:33)
[2017-11-02] MEDS ORDERED: PROPOFOL INJ 200 MG/20 ML VIAL IV ONE ×2 (09:34→11:30)
[2017-11-02] MEDS ORDERED: BUPIVACAINE HCL 0.5 % INJ/PF 30 ML SDV ONE (09:42)
[2017-11-02] MEDS ORDERED: POLYMYXIN B SULFATE INJ 500000 UNIT VIAL ONE (09:42)
[2017-11-02] MEDS ORDERED: BACITRACIN INJ 50,000 UNIT VIAL ONE (09:43)
[2017-11-02] MEDS ORDERED: LIDOCAINE 2% INJ (20 MG/ML) 20 ML MDV ONE (09:45)
[2017-11-02] MEDS ORDERED: NORMAL SALINE INJ/PF 0.9% 10 ML SDV ONE (09:46)
--- NOTE | 2017-11-02 12:04 | [facility]ARE DISCHARGE SUMMARY E ---
[facility] Discharge Summary NAME: YOHANA TAVERAS AGE: 42Y ADMITTED: 11/02/2017 DISCHARGED: 11/02/2017 SURGICAL PROCEDURE: Arthroplasty at the proximal interphalangeal joint and the distal interphalangeal joint second digit right foot. POSTOPERATIVE DIAGNOSIS: Hammertoe second digit right foot. SURGEON: Joseph Biswas DPM BUILDING INSPECTOR: Abbe Santiago DPM HOSPITAL COURSE: Patient was admitted to [facility] with a chief complaint of a painful second toe. He stated that the second toe was very long and whenever he walked he was walking on the end of the toe and it caused him to have a lot of pain. The patient desired to have this problem surgically corrected. He underwent the above surgical procedure without any complications and was transferred to the recovery room. The patient was discharged with a surgical shoe and ice pack, postoperative prescriptions for cephalexin 500 mg #4. He was given a followup appointment in the doctor's office in 1 week and the patient was discharged from [facility]. DICTATING PHYSICIAN: JOSEPH BISWAS D.P.M. [id number] PHY#: [id number] ID: [id number] JOB#: [id number] ACCT: [id number] cc:JOSEPH BISWAS DPM >
--- NOTE | 2017-11-02 12:24 | [facility] OPERATIVE REPORT E ---
[facility] Operative Report NAME: YOHANA TAVERAS AGE: 42Y DATE OF SURGERY: 11/02/2017 ROOM: PREOPERATIVE DIAGNOSIS: HAMMERTOE DEFORMITY, SECOND DIGIT, RIGHT FOOT. POSTOPERATIVE DIAGNOSIS: HAMMERTOE DEFORMITY, SECOND DIGIT, RIGHT FOOT. OPERATION: Arthroplasty at the proximal interphalangeal joint and at the distal interphalangeal joint, second digit, right foot. SURGEON: JOSEPH WRIGHT DPM CHLOROBUTADIENE SCRUBBER OPERATOR: Abbe Santiago DPM PROCEDURE: Following induction of IV regional and local anesthesia, the right foot and leg were prepped and draped in the usual sterile manner. The pneumatic tourniquet was placed around the right ankle and inflated to 250 mmHg. After exsanguination of the limb with the Esmarch bandage, the following surgical procedure was then performed: Arthroplasty at the proximal interphalangeal joint and the distal interphalangeal joint, second digit, right foot. Attention was directed to the second digit of the right foot, where approximately a 1.5-cm dorsolinear incision was made over the proximal interphalangeal joint. The incision was deepened via sharp dissection. All bleeders were clamped and Bovied as necessary for the purposes of hemostasis. The extensor tendon was incised transversely and reflected proximally from the bone. The hypertrophied head of the middle of the proximal phalanx was freed from soft tissue attachments via sharp dissection. Utilizing a Rome2rio sagittal saw, the hypertrophied head of the proximal phalanx was osteotomized perpendicular along the axis of the bone and removed in toto from the wound. The area was then flushed with copious amounts of an antibacterial saline solution. The plantar plate was isolated and sharply excised. The flexor digitorum longus tendon was isolated and was cut distally, and then sutured over the proximal phalanx to the extensor digitorum longus tendon with the 3-0 Vicryl. The digitorum longus tendon was then coapted and maintained utilizing simple interrupted sutures of 3-0 Vicryl. Attention was then directed to the dorsal aspect of the distal interphalangeal joint, where 2 semi-elliptical incisions were made over joint, transverse semi-elliptical incisions, and then approximately a 2-mm wide skin wedge was removed. The extensor digitorum longus tendon was then incised transversely and reflected proximally from the head of the middle phalanx. The hypertrophied head of the middle phalanx was then freed from the collateral ligaments via sharp dissection. Utilizing a Cain sagittal saw, the hypertrophied head of the middle phalanx was osteotomized perpendicular to the long axis of the bone and removed in toto from the wound. The plantar plate was then isolated and sharply excised. The area was then flushed with copious amounts of antibacterial saline solution. The extensor digitorum longus tendon was then sutured utilizing simple interrupted sutures of 3-0 Vicryl. The skin was then coapted and maintained utilizing horizontal mattress sutures of 5-0 nylon. An x-ray was taken and it was noted that the digit was now shortened and in a more anatomically correct position in both the distal interphalangeal joint and the proximal interphalangeal joint. A dry sterile dressing was then applied, consisting of Goyo silk, 4 x 4's, Conform, Kerlix and Coban. The pneumatic tourniquet was released. It was noted that all the digits were warm and viable, and the patient was transferred to the recovery room. DICTATING PHYSICIAN: JOSEPH WRIGHT D.P.M. [id number] PHY#: [id number] ID: [id number] JOB#: [id number] ACCT: [id number] cc:JOSEPH WRIGHT DPM > MARILYNN
--- NOTE | 2017-11-02 14:07 | RADIOLOGY REPORT (SQ) ---
EXAM DESCRIPTION: FOOT RIGHT 2 VIEWS; NO CHG FLUORO COMPLETED DATE/TIME: 11/02/2017 12:06 pm REASON FOR STUDY: RT FOOT 2ND TOE HAMMER TOE CORRECTION M20.41 OTHER HAMMER TOE(S) (ACQUIRED), RIGH T FOOT COMPARISON: Right foot films 08/16/2016 FLUOROSCOPY TIME: 1 seconds 1 digital images saved to PACS. TECHNIQUE: Intra-operative images acquired during surgical procedure to evaluate progress. NUMBER OF IMAGES: 1 digital C-arm image LIMITATIONS: None. FINDINGS: 1 C-arm images submitted during 2nd toe surgery. At the level of the PIP joint, partial r esection of the 2nd toe proximal phalanx has been performed. Please see the operative report for fur ther details IMPRESSION: Intra procedural imaging and fluoro COMMENT: Quality ID [id number]: Final reports for procedures using fluoroscopy that document radiation exp osure indices, or exposure time and number of fluorographic images (if radiation exposure indices are not available) Please consult full operative report of the attending physician for description of the procedure. TECHNICAL DOCUMENTATION: JOB ID: [id number] [employer]- All Rights Reserved
== END 2017-11-02 12:15 | disposition home or self-care (01) ==
LOC: SC 08:39
PROVIDERS: ATTEND Podiatrist Foot Surgery
PROC: 0SRP0JZ Replacement of Right Toe Phalangeal Joint with Synthetic Substitute, Open Approach (ICD-10-PCS; principal; 2017-11-02 09:45)
DX: M20.41 Other hammer toe(s) (acquired), right foot (principal); E78.5 Hyperlipidemia, unspecified; I10 Essential (primary) hypertension; G40.909 Epilepsy, unspecified, not intractable, without status epilepticus; E11.40 Type 2 diabetes mellitus with diabetic neuropathy, unspecified
CPT/HCPCS: 82962; 73620; 28285; J2250; J3490 ×4; J0690; J3010; J2405; J2704; 01480

== ENCOUNTER → 2018-08-04 | Outpatient (CLI) | payer MEDICARE, MEDICAID | LOC: OD 13:43 | PROVIDERS: ATTEND Preventive Medicine Undersea and Hyperbaric Medicine | DX: L03.032 Cellulitis of left toe (principal) | CPT/HCPCS: 87070; 87075; 87077; 87101; 87186; 87205 ==

== ENCOUNTER 2018-11-23 15:37 | Inpatient (IN) | payer MEDICARE, MEDICAID ==
[2018-11-23] MEDS ORDERED: NORMAL SALINE 1000 ML 1,000 ML IV ONE (17:07)
--- NOTE | 2018-11-23 17:10 | ER Document Report ---
ED Medical Screen (RME) - General Chief Complaint: Cough Stated Complaint: COUGH Time Seen by Provider: 11/23/18 17:07 Primary Care Provider: JIHAN MCLAUGHLIN DPM [Primary Care Provider] - Follow up as needed Mode of Arrival: Ambulatory Information source: Patient Notes: Patient reports generally feeling bad for the past month. Patient states that he would occasionally cough up blood flecks sputum for the past 2 weeks. Patient states he has had a persistent cough for the past 6 days. Patient does complain of right lower costal, right upper quadrant tenderness. Patient denies any nausea or vomiting. Patient hypotensive in the ER. I have greeted and performed a rapid initial assessment of this patient. A comprehensive ED assessment and evaluation of the patient, analysis of test results and completion of the medical decision making process will be conducted by additional ED providers. TRAVEL OUTSIDE OF THE [place] IN LAST 30 DAYS: No - Related Data Allergies/Adverse Reactions: sertraline HCl [From Zoloft] Allergy (Severe, Verified 11/23/18 15:50) Seizures Dexbrompheniramine [From Drixoral Cold & Flu] Allergy (Intermediate, Verified 11/23/18 15:50) Rapid Irregular Heart Rate pseudoephedrine HCl [From Drixoral Cold & Flu] Allergy (Intermediate, Verified 11/23/18 15:50) Rapid Irregular Heart Rate carbamazepine [From Tegretol] Adverse Reaction (Severe, Verified 11/23/18 15:50) SEIZURE ACTIVITY WHEN COMBINED WITH LAMICTAL lamotrigine [From Lamictal] Adverse Reaction (Severe, Verified 11/23/18 15:50) SEIZURE ACTIVITY WHEN COMBINED WITH TEGRETOL buprenorphine [From Butrans] Adverse Reaction (Intermediate, Verified 11/23/18 15:50) RASH/ITCHING bees Adverse Reaction (Intermediate, Uncoded 11/23/18 15:50) SWELLING AT SITE Past Medical History - Social History Family history: Reviewed & Not Pertinent - Past Medical History Cardiac Medical History: Reports: Hx Hypercholesterolemia, Hx Hypertension - MEDICATION Denies: Hx Coronary Artery Disease, Hx Heart Attack Pulmonary Medical History: Reports: Hx Asthma - IN CHILDHOOD, Hx Pneumonia - pt states at least 10 years ago Denies: Hx Bronchitis, Hx COPD Neurological Medical History: Reports: Hx Seizures - OFTEN AT NIGHT, PSEUDOSEIZURES. Denies: Hx Cerebrovascular Accident Endocrine Medical History: Reports: Hx Diabetes Mellitus Type 1, Hx Diabetes Mellitus Type 2 Renal/ Medical History: Denies: Hx Peritoneal Dialysis GI Medical History: Reports: Hx Ulcer - WHEN HE WAS 12 TOOK MEDS FOR 1 YEAR/RESOLVED. Denies: Hx Hepatitis, Hx Hiatal Hernia Musculoskeltal Medical History: Reports Hx Arthritis Psychiatric Medical History: Reports: Hx Anxiety, Hx Depression Infectious Medical History: Denies: Hx Hepatitis Past Surgical History: Reports: Hx Abdominal Surgery - hernia repair, Hx Cardiac Catheterization, Hx Orthopedic Surgery - rt foot. Denies: Hx Open Heart Surgery, Hx Pacemaker - Immunizations Immunizations up to date: Yes Hx Diphtheria, Pertussis, Tetanus Vaccination: Yes Physical Exam - General General appearance: Alert In distress: Mild Notes: Appears to feel bad - Respiratory Respiratory status: No respiratory distress Breath sounds: Nonproductive cough Doctor's Discharge - Discharge Referrals: JIHAN MCLAUGHLIN DPM [Primary Care Provider] - Follow up as needed
--- NOTE | 2018-11-23 17:50 | RADIOLOGY REPORT (SQ) ---
EXAM DESCRIPTION: CHEST 2 VIEWS COMPLETED DATE/TIME: 11/23/2018 5:42 pm REASON FOR STUDY: cough COMPARISON: 06/08/2016 EXAM PARAMETERS: NUMBER OF VIEWS: two views TECHNIQUE: Digital Frontal and Lateral radiographic views of the chest acquired. RADIATION DOSE: NA LIMITATIONS: none FINDINGS: LUNGS AND PLEURA: No opacities, masses or pneumothorax. No pleural effusion. MEDIASTINUM AND HILAR STRUCTURES: No masses or contour abnormalities. HEART AND VASCULAR STRUCTURES: Heart normal size. No evidence for failure. BONES: No acute findings. HARDWARE: None in the chest. OTHER: No other significant finding. IMPRESSION: NO ACUTE RADIOGRAPHIC FINDING IN THE CHEST. TECHNICAL DOCUMENTATION: JOB ID: [id number] [employer]- All Rights Reserved Reading location - IP/workstation name: [email or web address]
[2018-11-23 18:00] LABS: ABSOLUTE BASOPHILS # (AUTO) 0.1 10^3/uL (0.0-0.2); ABSOLUTE EOSINOPHILS # (AUTO) 0.1 10^3/uL (0.0-0.6); ABSOLUTE LYMPHOCYTES (AUTO) 3.6 10^3/uL (0.5-4.7); ABSOLUTE NEUT (AUTO) 12.2 10^3/uL (1.7-8.2); BASOPHILS % (AUTO) 0.4 % (0-2); EOSINOPHILS % (AUTO) 0.3 % (0-6); HEMOGLOBIN 13.5 g/dL (13.5-17.0); LYMPHOCYTES % (AUTO) 21.5 % (13-45); MEAN CORPUSCULAR HGB CONC 32.9 g/dL (32.0-36.0); MEAN CORPUSCULAR VOLUME 82 fl (80-97); MONOCYTES % (AUTO) 5.9 % (3-13); PLATELET COUNT 449 10^3/uL (150-450); RED BLOOD COUNT 4.99 10^6/uL (4.35-5.55); RED CELL DISTRIBUTION WIDTH 13.2 % (11.5-14.0); SEGMENTED NEUTROPHILS % (AUTO) 71.9 % (42-78); TOTAL CELLS COUNTED % (AUTO) 100 %
[2018-11-23 18:03] LABS: VENOUS BLOOD BASE EXCESS 2.2 mmol/L; VENOUS BLOOD HCO3 30.7 mmol/L (20-32); VENOUS BLOOD PCO2 64.5 mmHg (35-63); VENOUS BLOOD PH 7.3 (7.30-7.42)
[2018-11-23 18:07] LABS: INTERNATIONAL RATION (INR) 0.95; PROTHROMBIN TIME 13.1 SEC (11.4-15.4)
[2018-11-23 18:22] LABS: ALANINE AMINOTRANSFERASE 15 U/L (21-72); ALBUMIN 4.6 g/dL (3.5-5.0); ALKALINE PHOSPHATASE 116 U/L (38-126); ANION GAP 17 (5-19); ASPARTATE AMINO TRANSFERASE 17 U/L (17-59); BILIRUBIN,DIRECT 0.3 mg/dL (0.0-0.4); BILIRUBIN,TOTAL 0.7 mg/dL (0.2-1.3); BLOOD UREA NITROGEN 28 mg/dL (7-20); CARBON DIOXIDE 30 mmol/L (22-30); CHLORIDE 91 mmol/L (98-107); GLUCOSE 203 mg/dL (75-110); POTASSIUM 5.5 mmol/L (3.6-5.0); SODIUM 138.3 mmol/L (137-145)
[2018-11-23 19:21] LABS: APPEARANCE,URINE SLIGHTLY-CLOUDY; BILIRUBIN,URINE NEGATIVE (NEGATIVE); COLOR,URINE YELLOW; GLUCOSE, URINE >=500 mg/dL (NEGATIVE); KETONES,URINE NEGATIVE (NEGATIVE); LEUKOCYTE ESTERASE,URINE NEGATIVE (NEGATIVE); NITRITE,URINE NEGATIVE (NEGATIVE); PROTEIN,URINE NEGATIVE (NEGATIVE); URINE SPECIFIC GRAVITY 1.027
[2018-11-23] MEDS ORDERED: RINGERS SOLUTION,LACTATED 1,000 ML IV ONE ×2 (21:17→22:31)
--- NOTE | 2018-11-23 22:01 | RADIOLOGY REPORT (SQ) ---
EXAM DESCRIPTION: CT CHEST ANGIOGRAPHY WITHOUT THEN WITH IV CONTRAST COMPLETED DATE/TME: 11/23/2018 21:18 CLINICAL HISTORY: 43 years, Male, hemoptysis, hypotension, sob COMPARISON: None. TECHNIQUE: [id number] Images stored on PACS. All CT scanners at this facility use dose modulation, iterative reconstruction, and/or weight based dosing when appropriate to reduce radiation dose to as low as reasonably achievable (ALARA). Axial CTA images were obtained with coronal and sagittal MIPS reconstructions. [facility]: Dose Right [facility]: CareDose [facility]: Dose Right [facility]: Teradose 4D [facility]: [employer] LIMITATIONS: None. FINDINGS: The mediastinal vasculature enhances normally. No intraluminal filling defect to suggest pulmonary embolus. Nonenlarged and enlarged mediastinal and left hilar nodes. The largest left hilar node measures 1.7 x 1.4 cm. The heart and pericardium are unremarkable. Limited evaluation of the upper abdomen shows fatty infiltrative change to the liver. Osseous structures are grossly intact. No pneumothorax. Cavitary lobulated mass in the posterior left lung base, with a thick-walled appearance. This measures approximately 6.5 x 2.0 x 4.2 cm. In addition there is a subpleural nodule in the medial left lung base measuring 1.1 cm. The visualized airways are patent. Surrounding groundglass opacity and minor bronchiectasis in the left lung base, adjacent to the cavitary lesion. IMPRESSION: Negative for pulmonary embolus, thoracic aortic aneurysm, or dissection. Cavitary mass in the posterior left lung base, having a lobulated appearance as above. Surrounding ground glass opacity and reticulonodular change. There is also an adjacent pulmonary nodule in the medial left lung base. Tissue diagnosis recommended. This could reflect cavitary neoplasm. Abscess or sequelae of granulomatous disease are other possibilities. TECHNICAL DOCUMENTATION: Quality ID # [id number]: Final reports with documentation of one or more dose reduction techniques (e.g., Automated exposure control, adjustment of the mA and/or kV according to patient size, use of iterative reconstruction technique) copyright 2011 [employer]- All Rights Reserved
[2018-11-23 22:06] LABS: NT PRO BNP 48 pg/mL (<125)
[2018-11-23 22:07] LABS: TROPONIN I < 0.012 ng/mL
--- NOTE | 2018-11-23 22:26 | ER Document Report ---
ED General - General Chief Complaint: Cough Stated Complaint: COUGH Time Seen by Provider: 11/23/18 17:07 Mode of Arrival: Ambulatory Notes: Patient is a 43-year-old male with a past medical history of adn-hlstonm-[id number] dent diabetes, hypertension, bipolar disorder, presents with complaints of 3 weeks of fatigue, cough with associated hemoptysis and shortness of breath. Patient came to the emergency department as he feels like the hemoptysis has increased in volume in the last 2-3 days and noted that he was becoming increasingly concerned regarding this issue. No history of similar symptoms for the past 3 weeks. His interjects that the patient has been mostly lying in bed over this period of time, appears to have no energy. She also notes that he becomes extremity dyspneic with exertion. He has no prior history of DVT or pulmonary embolus. He has not had fever. Frequently has sweating particularly at night. Patient reports a history of exposure to TB. Has not seen his primary doctor regarding today's concerns. Nothing is been noted to improve his symptoms. TRAVEL OUTSIDE OF THE [place] IN LAST 30 DAYS: No - Related Data Allergies/Adverse Reactions: sertraline HCl [From Zoloft] Allergy (Severe, Verified 11/23/18 15:50) Seizures Dexbrompheniramine [From Drixoral Cold & Flu] Allergy (Intermediate, Verified 11/23/18 15:50) Rapid Irregular Heart Rate pseudoephedrine HCl [From Drixoral Cold & Flu] Allergy (Intermediate, Verified 11/23/18 15:50) Rapid Irregular Heart Rate carbamazepine [From Tegretol] Adverse Reaction (Severe, Verified 11/23/18 15:50) SEIZURE ACTIVITY WHEN COMBINED WITH LAMICTAL lamotrigine [From Lamictal] Adverse Reaction (Severe, Verified 11/23/18 15:50) SEIZURE ACTIVITY WHEN COMBINED WITH TEGRETOL buprenorphine [From Butrans] Adverse Reaction (Intermediate, Verified 11/23/18 15:50) RASH/ITCHING bees Adverse Reaction (Intermediate, Uncoded 11/23/18 15:50) SWELLING AT SITE Past Medical History - General Information source: Patient - Social History Smoking Status: Never Smoker Frequency of alcohol use: None Drug Abuse: None Lives with: Spouse/Significant other Family History: CAD, DM, Hypertension Patient has suicidal ideation: No Patient has homicidal ideation: No - Past Medical History Cardiac Medical History: Reports: Hx Hypercholesterolemia, Hx Hypertension - MEDICATION Denies: Hx Coronary Artery Disease, Hx Heart Attack Pulmonary Medical History: Reports: Hx Asthma - IN CHILDHOOD, Hx Pneumonia - pt states at least 10 years ago Denies: Hx Bronchitis, Hx COPD Neurological Medical History: Reports: Hx Seizures - OFTEN AT NIGHT, PSEUDOSEIZURES. Denies: Hx Cerebrovascular Accident Endocrine Medical History: Reports: Hx Diabetes Mellitus Type 1, Hx Diabetes Mellitus Type 2 Renal/ Medical History: Denies: Hx Peritoneal Dialysis GI Medical History: Reports: Hx Ulcer - WHEN HE WAS 12 TOOK MEDS FOR 1 YEAR/RESOLVED. Denies: Hx Hepatitis, Hx Hiatal Hernia Musculoskeletal Medical History: Reports Hx Arthritis Psychiatric Medical History: Reports: Hx Anxiety, Hx Depression Infectious Medical History: Denies: Hx Hepatitis Past Surgical History: Reports: Hx Abdominal Surgery - hernia repair, Hx Cardiac Catheterization, Hx Orthopedic Surgery - rt foot. Denies: Hx Open Heart Surgery, Hx Pacemaker - Immunizations Immunizations up to date: Yes Hx Diphtheria, Pertussis, Tetanus Vaccination: Yes Hx Pneumococcal Vaccination: 07/17/15 Review of Systems - Review of Systems Notes: Constitutional: Negative for fever. HENT: Negative for sore throat. Eyes: Negative for visual changes. Cardiovascular: Negative for chest pain. Respiratory: Positive shortness of breath and hemoptysis Gastrointestinal: Negative for abdominal pain, positive for nausea Genitourinary: Negative for dysuria. Musculoskeletal: Negative for back pain. Skin: Negative for rash. Neurological: Negative for headaches, weakness or numbness. 10 point ROS negative except as marked above and in HPI. Physical Exam - Vital signs Vitals: Pulse Ox 97 11/23/18 17:09 Interpretation: Hypotensive Notes: PHYSICAL EXAMINATION: GENERAL: Somewhat lethargic, appears unwell HEAD: Atraumatic, normocephalic. EYES: Pupils equal round and reactive to light, extraocular movements intact, sclera anicteric, conjunctiva are normal. ENT: nares patent, oropharynx clear without exudates. Dry mucous membranes. NECK: Normal range of motion, supple without lymphadenopathy LUNGS: Breath sounds clear to auscultation bilaterally and equal. No wheezes rales or rhonchi. HEART: Regular rate and rhythm without murmurs ABDOMEN: Soft, nontender, normoactive bowel sounds. No guarding, no rebound. No masses appreciated. EXTREMITIES: Normal range of motion, no pitting or edema. No cyanosis. NEUROLOGICAL: No focal neurological deficits. Moves all extremities spontaneously and on command. PSYCH: Normal mood, normal affect. SKIN: Warm, Dry, normal turgor, no rashes or lesions noted. Course - Re-evaluation Re-evalutation: 11/23/18 21:34 Patient presents with hypotension, 2-3 weeks of effectively not getting out of bed, hemoptysis, shortness of breath. Initial laboratories relatively unremarkable. Patient is somewhat pale although in no acute distress. Initial hypotension did respond to a 1 L normal saline bolus, repeat pressure at time of my assessment 100/67. Primary concern is for an a possible acute pulmonary embolus. CTA pending. 11/23/18 22:31 And I reassessed the patient on 2 separate occasions since that time. Patient remains with borderline blood pressures without tachycardia. Just directly the CTA results with the radiologist Dr. Bridges. I directly queried whether or not this could be tuberculosis and she states this would be an atypical pattern although could be considered. AFB smear will be sent. HIV testing will be sent. Concern for possible squamous cell carcinoma that has become necrotic given lymphadenopathy. Patient is empirically started on Zosyn and vancomycin. IV fluids ongoing. Patient will require hospitalization. Will plan to discuss with the admitting hospitalist. 11/23/18 22:47 I did discuss this case with who requested that I speak to the welder boilermaker security installation technician. I did discuss this case with Dr. Valverde welder boilermaker security installation technician. He states that he is comfortable assisting in management of this patient. The patient will likely require bronchoscopy. I did again discussed with the hospitalist Dr. Harris who has accepted the patient. Patient's hypotension has improved, blood pressure 116 and 79 currently. - Vital Signs Vital signs: Temp Pulse Resp BP Pulse Ox 9 L 135/87 H 98 11/24/18 00:11 11/24/18 00:11 11/24/18 00:11 - Laboratory Result Diagrams: 11/23/18 17:33 11/23/18 17:33 Laboratory results interpreted by me: 11/23/18 11/23/18 11/23/18 17:33 17:33 17:33 WBC 17.0 H Absolute Neutrophils 12.2 H VBG pCO2 64.5 H Potassium 5.5 H Chloride 91 L BUN 28 H Glucose 203 H ALT 15 L Urine Glucose (UA) Urine Urobilinogen 11/23/18 18:57 WBC Absolute Neutrophils VBG pCO2 Potassium Chloride BUN Glucose ALT Urine Glucose (UA) >=500 H Urine Urobilinogen 2.0 H - Diagnostic Test Radiology reviewed: Image reviewed, Reports reviewed - EKG Interpretation by Me Additional EKG results interpreted by me: 11/24/18 01:26 Sinus rhythm, rate 82. No ST elevations or depressions. QTC is 444. Critical Care Note - Critical Care Note Total time excluding time spent on procedures (mins): 38 Comments: Critical care time spent obtaining history from patient or surrogate, discussions with consultants, development of treatment plan with patient or white rrogate, evaluation of patient's response to treatment, examination of patient, ordering and performing treatments and interventions, ordering and review of laboratory studies, re-evaluation of patient's condition, ordering and review of radiographic studies and review of old charts Discharge - Discharge Clinical Impression: Cavitary lesion of lung Hypotension Qualifiers: Hypotension type: unspecified hypotension type Qualified Code(s): I95.9 - Hypotension, unspecified Sepsis Qualifiers: Sepsis type: sepsis due to unspecified organism Qualified Code(s): A41.9 - Sepsis, unspecified organism Condition: Fair Disposition: ADMITTED INPATIENT Admitting Provider: Hospitalist Unit Admitted: [facility]
[2018-11-23] MEDS ORDERED: PIPERACILLIN/TAZOBACTAM 3.375 GM VIAL IV ONE (22:30)
[2018-11-23] MEDS ORDERED: VANCOMYCIN HCL INJ 1000 MG VIAL IV ONE (22:30)
[2018-11-24] MEDS ORDERED: ONDANSETRON 4 MG TAB.RAPDIS PO PRN (02:01)
[2018-11-24] MEDS ORDERED: ONDANSETRON HCL INJ/PF 4 MG/2 ML SDV IV PRN (02:01)
[2018-11-24] MEDS ORDERED: LEVALBUTEROL HCL NEB 1.25 MG/3 ML AMPUL NEB PRN (02:01)
[2018-11-24] MEDS ORDERED: MAGNESIUM HYDROXIDE SUSP 30 ML UDCUP PO PRN (02:01)
[2018-11-24] MEDS ORDERED: LABETALOL HCL INJ 20 MG/4 ML DISP.SYRIN IV PRN (02:10)
[2018-11-24] MEDS ORDERED: HYDRALAZINE HCL INJ/PF 20 MG/1 ML SDV IV PRN (02:10)
[2018-11-24] MEDS ORDERED: MORPHINE SULFATE 10 MG/ML INJ IV PRN ×4 (02:10→14:57)
[2018-11-24] MEDS ORDERED: MEROPENEM 1 GM VIAL IV PRN (02:15)
[2018-11-24] MEDS ORDERED: ALPRAZOLAM 0.5 MG TABLET PO PRN (02:15)
[2018-11-24] MEDS ORDERED: DEXTROSE 50%-WATER 25 GM/50 ML DISP.SYRIN IV PRN ×2 (02:18)
[2018-11-24] MEDS ORDERED: DEXTROSE 40% GEL 15 GM TUBE PO PRN ×2 (02:18)
[2018-11-24] MEDS ORDERED: GLUCAGON,HUMAN RECOMB 1 MG INJ IM PRN (02:18)
[2018-11-24] MEDS ORDERED: TUBERCULIN,PURIF.PROT.DERIV. 5 TU/0.1 ML TEST 1 ML VIAL ID ONE ×2 (02:45→02:58)
[2018-11-24] MEDS ORDERED: MEROPENEM 1 GM in NORMAL SALINE 50 ML IV ONE (03:00)
[2018-11-24 04:19] LABS: FREE T3 3.38 pg/mL (2.77-5.27); FREE T4 (FREE THYROXINE) 1.12 ng/dL (0.78-2.19)
[2018-11-24 04:33] LABS: THYROID STIMULATING HORMONE 2.24 uIU/mL (0.47-4.68)
--- NOTE | 2018-11-24 05:45 | PDOC H&P ---
History of Present Illness Admission Date/PCP: 11/23/18 22:54 JIHAN MCLAUGHLIN DPM Patient complains of: Hemoptysis History of Present Illness: YOHANA TAVERAS is a 43 year old male who presented to the emergency room with a one-week history of mild hemoptysis. His hemoptysis has increased slightly since its onset a week ago but remains mild with only a small amount of blood produced with his coughing episodes. The cough has increased slightly in frequency over the last 2-3 days as has the amount of blood present in his sputum. Additionally he admits a 3-4 week history of persistent fatigue, generalized malaise, night sweats and progressively worsening dyspnea on exertion. He also acknowledges that he has a history of exposure to tuberculosis. He denies similar prior episodes and has not found any aggravating or ameliorating factors for his current symptoms. In the emergency room he was noted to have a cavitary mass/lesion present in the left lower lung and was admitted after consultation with the on-call field agent who agreed to see the patient in assisted management here at [facility]. Past Medical History Cardiac Medical History: Reports: Hyperlipidema, Hypertension - MEDICATION Denies: Coronary Artery Disease, DVT, Myocardial Infarction, Pulmonary Embolism Pulmonary Medical History: Reports: Asthma - IN CHILDHOOD, Pneumonia - pt states at least 10 years ago Denies: Bronchitis, Chronic Obstructive Pulmonary Disease (COPD) EENT Medical History: Denies: Cataracts, Nose - Epistaxis Neurological Medical History: Reports: Seizures - OFTEN AT NIGHT, PSEUDOSEIZURES Denies: Hemorrhagic CVA, Ischemic CVA, Multiple Sclerosis Endocrine Medical History: Reports: Diabetes Mellitus Type 2, Obesity Renal/ Medical History: Denies: Chronic Kidney Disease, Nephrolithiasis Malignancy Medical History: Reports: None GI Medical History: Denies: Cirrhosis, Hepatitis, Hiatal Hernia Musculoskeltal Medical History: Reports: Arthritis Denies: Gout Skin Medical History: Denies: Eczema, Psoriasis Psychiatric Medical History: Reports: Depression Denies: Alcohol Dependency, Substance Abuse, Tobacco Dependency Traumatic Medical History: Reports: None Hematology: Denies: Anemia, Bleeding Tendencies Infectious Medical History: Reports: None Past Surgical History Past Surgical History: Reports: Gastric Bypass Surgery, Herniorrhaphy, Orthopedic Surgery - rt foot 3 toes amputated, Other - chest wall cyst removed, skin tumor removed, wisdom teeth removed Denies: Pacemaker Social History Information Source: Patient Lives with: Spouse/Significant other Smoking Status: Former Smoker Frequency of Alcohol Use: None Hx Recreational Drug Use: No Drugs: None Hx Prescription Drug Abuse: No - Advance Directive Resuscitation Status: Full Code Surrogate healthcare decision maker:: Family History Family History: CAD, DM, Hypertension Parental Family History Reviewed: Yes Children Family History Reviewed: No Sibling(s) Family History Reviewed.: Yes Medication/Allergy Home Medications: Alprazolam [Xanax 0.5 mg Tablet] 0.5 mg PO Q6HP PRN 09/14/17 Aripiprazole [Abilify 5 mg Tablet] 5 mg PO DAILY 09/14/17 Atorvastatin Calcium 20 mg PO QHS 09/14/17 Celecoxib [Celebrex 200 mg Capsule] 200 mg PO Q12 09/14/17 Cetirizine HCl [Zyrtec 10 mg Tablet] 1 tab PO QHS 09/14/17 Duloxetine HCl [Cymbalta] 30 mg PO QAM 09/14/17 Empagliflozin [Jardiance] 25 mg PO QAM 09/14/17 Glimepiride 4 mg PO QAM 09/14/17 Hydrochlorothiazide 25 mg PO DAILY 09/14/17 Insulin Aspart [Novolog Flexpen] 0 unit SUBCUT .SLD SCALE 09/14/17 Insulin Glargine,Hum.rec.anlog [Lantus Solostar] 100 unit SQ QAM 09/14/17 Lisinopril 20 mg PO DAILY 09/14/17 Melatonin 40 mg PO QHS 09/14/17 Metformin HCl 1,000 mg PO BID 09/14/17 Morphine Sulfate [Ms Contin] 30 mg PO TID 09/14/17 Oxycodone HCl [Oxycontin] 15 mg PO ASDIR PRN 09/14/17 Pregabalin [Lyrica] 225 mg PO BID 09/14/17 Ropinirole HCl [Requip] 1 mg PO QHS 09/14/17 Triazolam 0.25 mg PO QAM 09/14/17 Allergies/Adverse Reactions: sertraline HCl [From Zoloft] Allergy (Severe, Verified 11/23/18 15:50) Seizures Dexbrompheniramine [From Drixoral Cold & Flu] Allergy (Intermediate, Verified 11/23/18 15:50) Rapid Irregular Heart Rate pseudoephedrine HCl [From Drixoral Cold & Flu] Allergy (Intermediate, Verified 11/23/18 15:50) Rapid Irregular Heart Rate carbamazepine [From Tegretol] Adverse Reaction (Severe, Verified 11/23/18 15:50) SEIZURE ACTIVITY WHEN COMBINED WITH LAMICTAL lamotrigine [From Lamictal] Adverse Reaction (Severe, Verified 11/23/18 15:50) SEIZURE ACTIVITY WHEN COMBINED WITH TEGRETOL buprenorphine [From Butrans] Adverse Reaction (Intermediate, Verified 11/23/18 15:50) RASH/ITCHING bees Adverse Reaction (Intermediate, Uncoded 11/23/18 15:50) SWELLING AT SITE Review of Systems Constitutional: PRESENT: as per HPI, night sweats. ABSENT: chills, fever(s) Eyes: ABSENT: visual disturbances, other - Ocular pain Ears: ABSENT: hearing changes, other - Ear pain Nose, Mouth, and Throat: ABSENT: mouth pain, sore throat Cardiovascular: PRESENT: as per HPI, dyspnea on exertion. ABSENT: chest pain, edema, orthropnea, palpitations Respiratory: PRESENT: as per HPI, cough, hemoptysis, sputum. ABSENT: dyspnea Gastrointestinal: ABSENT: abdominal pain, constipation, diarrhea, nausea, vomiting Genitourinary: ABSENT: dysuria, hematuria Musculoskeletal: ABSENT: back pain, joint swelling Integumentary: ABSENT: pruritus, rash Neurological: PRESENT: paresthesias - Chronic severe diabetic peripheral neuropathy. ABSENT: confusion, convulsions, memory loss Psychiatric: ABSENT: anxiety, depression Endocrine: ABSENT: cold intolerance, heat intolerance Hematologic/Lymphatic: ABSENT: easy bleeding, easy bruising Physical Exam Vital Signs: Temp Pulse Resp BP Pulse Ox 12 100/67 99 11/23/18 21:31 11/23/18 21:31 11/23/18 21:31 Intake & Output 11/21/18 11/22/18 11/23/18 23:59 23:59 23:59 Intake Total 1999 Balance 1999 General appearance: PRESENT: no acute distress, cooperative Head exam: PRESENT: atraumatic, normocephalic Eye exam: PRESENT: conjunctiva pink, EOMI. ABSENT: scleral icterus Ear exam: PRESENT: normal external ear exam. ABSENT: bleeding, drainage Mouth exam: PRESENT: dry mucosa, neck supple Neck exam: ABSENT: JVD, thyromegaly, tracheal deviation Respiratory exam: PRESENT: clear to auscultation toni, symmetrical, unlabored Cardiovascular exam: PRESENT: RRR. ABSENT: clicks, gallop, rubs Pulses: PRESENT: normal radial pulses, normal dorsalis pedis pul Vascular exam: PRESENT: normal capillary refill. ABSENT: pallor GI/Abdominal exam: PRESENT: normal bowel sounds, soft Rectal exam: PRESENT: deferred Extremities exam: ABSENT: joint swelling, pedal edema Musculoskeletal exam: PRESENT: ambulatory, full ROM, normal inspection Neurological exam: PRESENT: alert, oriented to person, oriented to place, oriented to time, oriented to situation, CN II-XII grossly intact. ABSENT: motor sensory deficit Psychiatric exam: PRESENT: appropriate affect, normal mood Skin exam: PRESENT: dry, intact, warm. ABSENT: jaundice, rash, urticaria Results Laboratory Results: 11/23/18 17:33 11/23/18 17:33 11/23/18 11/23/18 11/23/18 17:33 17:33 17:33 WBC 17.0 H RBC 4.99 Hgb 13.5 Hct 41.0 MCV 82 MCH 27.0 MCHC 32.9 RDW 13.2 Plt Count 449 Seg Neutrophils % 71.9 Lymphocytes % 21.5 Monocytes % 5.9 Eosinophils % 0.3 Basophils % 0.4 Absolute Neutrophils 12.2 H Absolute Lymphocytes 3.6 Absolute Monocytes 1.0 Absolute Eosinophils 0.1 Absolute Basophils 0.1 VBG pH VBG pCO2 VBG HCO3 VBG Base Excess Sodium 138.3 Potassium 5.5 H Chloride 91 L Carbon Dioxide 30 Anion Gap 17 BUN 28 H Creatinine 1.20 Est GFR ( Amer) > 60 Est GFR (Non-Af Amer) > 60 Glucose 203 H Lactic Acid 1.3 Calcium 10.0 Total Bilirubin 0.7 AST 17 ALT 15 L Alkaline Phosphatase 116 Total Protein 8.0 Albumin 4.6 Lipase 89.0 Urine Color Urine Appearance Urine pH Ur Specific [place] Urine Protein Urine Glucose (UA) Urine Ketones Urine Blood Urine Nitrite Ur Leukocyte Esterase Urine WBC (Auto) Urine RBC (Auto) 11/23/18 11/23/18 17:33 18:57 WBC RBC Hgb Hct MCV MCH MCHC RDW Plt Count Seg Neutrophils % Lymphocytes % Monocytes % Eosinophils % Basophils % Absolute Neutrophils Absolute Lymphocytes Absolute Monocytes Absolute Eosinophils Absolute Basophils VBG pH 7.30 VBG pCO2 64.5 H VBG HCO3 30.7 VBG Base Excess 2.2 Sodium Potassium Chloride Carbon Dioxide Anion Gap BUN Creatinine Est GFR ( Amer) Est GFR (Non-Af Amer) Glucose Lactic Acid Calcium Total Bilirubin AST ALT Alkaline Phosphatase Total Protein Albumin Lipase Urine Color YELLOW Urine Appearance SLIGHTLY-CLOUDY Urine pH 5.0 Ur Specific [place] 1.027 Urine Protein NEGATIVE Urine Glucose (UA) >=500 H Urine Ketones NEGATIVE Urine Blood NEGATIVE Urine Nitrite NEGATIVE Ur Leukocyte Esterase NEGATIVE Urine WBC (Auto) 1 Urine RBC (Auto) 1 11/23/18 17:33 Troponin I < 0.012 NT-Pro-B Natriuret Pep 48 Impressions: Chest X-Ray 11/23/18 17:07 IMPRESSION: NO ACUTE RADIOGRAPHIC FINDING IN THE CHEST. Chest/Abdomen CTA 11/23/18 21:18 IMPRESSION: Negative for pulmonary embolus, thoracic aortic aneurysm, or dissection. Cavitary mass in the posterior left lung base, having a lobulated appearance as above. Surrounding ground glass opacity and reticulonodular change. There is also an adjacent pulmonary nodule in the medial left lung base. Tissue diagnosis recommended. This could reflect cavitary neoplasm. Abscess or sequelae of granulomatous disease are other possibilities. TECHNICAL DOCUMENTATION: Quality ID # [id number]: Final reports with documentation of one or more dose reduction techniques (e.g., Automated exposure control, adjustment of the mA and/or kV according to patient size, use of iterative reconstruction technique) copyright 2011 [employer]- All Rights Reserved Assessment & Plan - Diagnosis (1) Cavitary lesion of lung Is this a current diagnosis for this admission?: Yes Plan: Patient will be evaluated with the guidance of pulmonology consultation. A TB skin test is placed and patient will be started on broad-spectrum antibiotic therapy utilizing meropenem. (2) Diabetes mellitus type 2 in nonobese Is this a current diagnosis for this admission?: Yes Plan: Patient will be continued on his current home medications. (3) Diabetic peripheral neuropathy associated with type 2 diabetes mellitus Is this a current diagnosis for this admission?: Yes Plan: Patient be continued on his current peripheral neuropathy therapy. (4) Hypertension Qualifiers: Hypertension type: essential hypertension Qualified Code(s): I10 - Essential (primary) hypertension Is this a current diagnosis for this admission?: Yes Plan: Patient will continued on his home antihypertensive medications as appropriate. (5) Chronic pain syndrome Is this a current diagnosis for this admission?: Yes Plan: Patient will be treated with sliding scale morphine for his pain during this hospital course until such time as his daytime hospitalist feels that he wishes to start the patient back on his long-term pain control regiment. Morphine sliding scale is 3-7.5 mg IV every 2 hours as needed for control of pain. - Time Time Spent: 30 to 50 Minutes Critical Time spent with patient: Less than 15 minutes Medications reviewed and adjusted accordingly: Yes Anticipated discharge: Home - Inpatient Certification Based on my medical assessment, after consideration of the patient's comorbidities, presenting symptoms, or acuity I expect that the services needed warrant INPATIENT care.: Yes I certify that my determination is in accordance with my understanding of Medicare's requirements for reasonable and necessary INPATIENT services [42 CFR 412.3e].: Yes Medical Necessity: Need Close Monitoring Due to Risk of Patient Decompensation, Need for IV Antibiotics, Need for Surgery, Risk of Complication if Not Cared For in Hospital
[2018-11-24 05:50] LABS: INTERNATIONAL RATION (INR) 1.02
[2018-11-24] MEDS ORDERED: GLIMEPIRIDE 4 MG TABLET PO SCH (08:00)
[2018-11-24] MEDS ORDERED: (PENDING PHARMACY ID) (Empagliflozin [Jardiance] 25 MG) PO SCH (08:00)
[2018-11-24] MEDS ORDERED: TRIAZOLAM 0.25 MG PO SCH (08:00)
[2018-11-24] MEDS ORDERED: DULOXETINE HCL 30 MG CAPSULE.DR PO SCH (08:00)
[2018-11-24] MEDS: FAMOTIDINE 20 MG TABLET PO SCH ×2 (09:47→22:19)
[2018-11-24] MEDS: LISINOPRIL 10 MG TABLET PO SCH (09:47)
[2018-11-24] MEDS: PREGABALIN 75 MG CAPSULE PO SCH ×2 (09:47→20:40)
[2018-11-24] MEDS: DOCUSATE SODIUM 100 MG CAPSULE PO SCH ×2 (09:47→20:40)
[2018-11-24] MEDS: MEROPENEM 1 GM in NORMAL SALINE 50 ML IV SCH ×2 (09:48→20:49)
[2018-11-24] MEDS ORDERED: ARIPIPRAZOLE 5 MG TABLET PO SCH (10:00)
[2018-11-24] MEDS ORDERED: METFORMIN HCL 500 MG TABLET PO SCH (10:00)
--- NOTE | 2018-11-24 12:39 | EKG REPORT ---
SEVERITY:- NORMAL ECG - SINUS RHYTHM : Confirmed by: Kade Calles 24-Nov-2018 12:39:02
[2018-11-24 14:27] LABS: URINE AMPHETAMINES SCREEN NEGATIVE; URINE BARBITURATES SCREEN NEGATIVE; URINE BENZODIAZEPINES SCREEN UNCONFIRMED POSITIVE; URINE COCAINE SCREEN NEGATIVE; URINE MARIJUANA (THC) SCREEN NEGATIVE; URINE METHADONE SCREEN NEGATIVE; URINE PHENCYCLIDINE SCREEN NEGATIVE
[2018-11-24] MEDS ORDERED: CELECOXIB 200 MG CAPSULE PO PRN (14:45)
--- NOTE | 2018-11-24 14:59 | PDOC PROGRESS REPORT ---
Subjective Progress Note for:: 11/24/18 Subjective:: The patient is a 43-year-old male with a past medical history of hypertension, hyperlipidemia, asthma, seizures, pseudoseizures, arthritis, depression, bipolar, chronic pain with opiate dependence (continuous use), and anxiety with benzodiazepine use (continuous use) who was admitted 11/23/18 for pneumonia with cavitary lesion to the posterior left lung base with groundglass opacity and adjacent pulmonary nodule to the medial left lung base. Patient was seen on morning rounds. He was found resting in bed comfortably on room air. He was sleeping when I entered the room but woke easily when I said his name. He complains of continued left chest wall pain worsens with deep breath and cough. Reports slight dyspnea on exertion. He has had no further episodes of hemoptysis since his arrival. He does confirm possible TB exposure as a child; can recall that around age 13 his mother was treated for tuberculosis. He cannot recall if she was actively infected or being treated due to exposure. He denies previous homelessness or incarceration. He is evasive when asked about recreational drug use and is noted to hesitate prior to denying IV drug use. He denies current fever, chills, headache, dizziness, palpitations, dyspnea at rest, orthopnea, abdominal pain, nausea and vomiting. He has no questions or concerns at this time. No concerns per nursing. Reason For Visit: CAVITARY MASS IN THE LEFT LUNG Physical Exam Vital Signs: Temp Pulse Resp BP Pulse Ox 98.3 F 22 H 99/72 L 90 L 11/24/18 14:22 11/24/18 14:11 11/24/18 14:11 11/24/18 14:11 Intake & Output 11/23/18 11/24/18 11/25/18 06:59 06:59 06:59 Intake Total 3050 Balance 3050 Weight 118.5 kg General appearance: PRESENT: no acute distress, obese, well-developed, well- nourished Head exam: PRESENT: atraumatic, normocephalic Eye exam: PRESENT: conjunctiva pink, EOMI, PERRLA. ABSENT: scleral icterus Ear exam: PRESENT: normal external ear exam Mouth exam: PRESENT: moist, tongue midline Neck exam: ABSENT: carotid bruit, JVD, lymphadenopathy, thyromegaly Respiratory exam: PRESENT: clear to auscultation toni, decreased breath sounds - Bibasilar, symmetrical, tachypnea - RR 22-24, unlabored. ABSENT: rales, rhonchi, wheezes Cardiovascular exam: PRESENT: RRR, +S1, +S2. ABSENT: diastolic murmur, rubs, systolic murmur Pulses: PRESENT: normal dorsalis pedis pul Vascular exam: PRESENT: normal capillary refill GI/Abdominal exam: PRESENT: normal bowel sounds, soft. ABSENT: distended, guarding, mass, organolmegaly, rebound, tenderness Rectal exam: PRESENT: deferred Extremities exam: PRESENT: full ROM. ABSENT: calf tenderness, clubbing, pedal edema Neurological exam: PRESENT: alert, awake, oriented to person, oriented to place, oriented to time, oriented to situation, CN II-XII grossly intact. ABSENT: motor sensory deficit Psychiatric exam: PRESENT: appropriate affect, normal mood. ABSENT: homicidal ideation, suicidal ideation Skin exam: PRESENT: dry, intact, warm. ABSENT: cyanosis, rash Results Laboratory Results: 11/23/18 17:33 11/23/18 17:33 11/23/18 11/23/18 11/23/18 17:33 17:33 17:33 WBC 17.0 H RBC 4.99 Hgb 13.5 Hct 41.0 MCV 82 MCH 27.0 MCHC 32.9 RDW 13.2 Plt Count 449 Seg Neutrophils % 71.9 Lymphocytes % 21.5 Monocytes % 5.9 Eosinophils % 0.3 Basophils % 0.4 Absolute Neutrophils 12.2 H Absolute Lymphocytes 3.6 Absolute Monocytes 1.0 Absolute Eosinophils 0.1 Absolute Basophils 0.1 VBG pH VBG pCO2 VBG HCO3 VBG Base Excess Sodium 138.3 Potassium 5.5 H Chloride 91 L Carbon Dioxide 30 Anion Gap 17 BUN 28 H Creatinine 1.20 Est GFR ( Amer) > 60 Est GFR (Non-Af Amer) > 60 Glucose 203 H Lactic Acid 1.3 Calcium 10.0 Total Bilirubin 0.7 AST 17 ALT 15 L Alkaline Phosphatase 116 Total Protein 8.0 Albumin 4.6 Lipase 89.0 TSH Free T4 Free T3 pg/mL Urine Color Urine Appearance Urine pH Ur Specific Dixon Urine Protein Urine Glucose (UA) Urine Ketones Urine Blood Urine Nitrite Ur Leukocyte Esterase Urine WBC (Auto) Urine RBC (Auto) 11/23/18 11/23/18 11/24/18 17:33 18:57 03:38 WBC RBC Hgb Hct MCV MCH MCHC RDW Plt Count Seg Neutrophils % Lymphocytes % Monocytes % Eosinophils % Basophils % Absolute Neutrophils Absolute Lymphocytes Absolute Monocytes Absolute Eosinophils Absolute Basophils VBG pH 7.30 VBG pCO2 64.5 H VBG HCO3 30.7 VBG Base Excess 2.2 Sodium Potassium Chloride Carbon Dioxide Anion Gap BUN Creatinine Est GFR ( Amer) Est GFR (Non-Af Amer) Glucose Lactic Acid Calcium Total Bilirubin AST ALT Alkaline Phosphatase Total Protein Albumin Lipase TSH 2.24 Free T4 1.12 Free T3 pg/mL 3.38 Urine Color YELLOW Urine Appearance SLIGHTLY-CLOUDY Urine pH 5.0 Ur Specific Dixon 1.027 Urine Protein NEGATIVE Urine Glucose (UA) >=500 H Urine Ketones NEGATIVE Urine Blood NEGATIVE Urine Nitrite NEGATIVE Ur Leukocyte Esterase NEGATIVE Urine WBC (Auto) 1 Urine RBC (Auto) 1 11/23/18 17:33 Troponin I < 0.012 NT-Pro-B Natriuret Pep 48 Impressions: Chest X-Ray 11/23/18 17:07 IMPRESSION: NO ACUTE RADIOGRAPHIC FINDING IN THE CHEST. Chest/Abdomen CTA 11/23/18 21:18 IMPRESSION: Negative for pulmonary embolus, thoracic aortic aneurysm, or dissection. Cavitary mass in the posterior left lung base, having a lobulated appearance as above. Surrounding ground glass opacity and reticulonodular change. There is also an adjacent pulmonary nodule in the medial left lung base. Tissue diagnosis recommended. This could reflect cavitary neoplasm. Abscess or sequelae of granulomatous disease are other possibilities. TECHNICAL DOCUMENTATION: Quality ID # 436: Final reports with documentation of one or more dose reduction techniques (e.g., Automated exposure control, adjustment of the mA and/or kV according to patient size, use of iterative reconstruction technique) copyright 2011 [employer]- All Rights Reserved Assessment & Plan - Diagnosis (1) Cavitary lesion of lung Is this a current diagnosis for this admission?: Yes Plan: Unclear etiology; TB (possible exposure as a child) versus neoplasm versus staph pneumonia versus septic emboli (evasive answers when asked about recreational drug use). Blood cultures pending. Sputum cultures pending. AFB #1 is negative. We will continue daily AFB x3 PPD placed last night; to be read 11/26/18 The patient was empirically placed on IV meropenem by the vito Velazquez. Pulmonology has been consulted; have added IV vancomycin and plans for bronchoscopy. We will ask infectious disease to make recommendations for antibiotic coverage. Supplemental oxygen as needed to maintain oxygen saturations greater than 90%. As needed nebulizer treatments Incentive spirometer to bedside. (2) Diabetes Qualifiers: Diabetes mellitus type: type 2 Is this a current diagnosis for this admission?: Yes Plan: Oral antidiabetic agents are held while inpatient. He is placed on a consistent carb diet with Accu-Cheks before meals and at bedtime and Humalog for sliding scale coverage. The registered dietitian is consulted. (3) Diabetic peripheral neuropathy associated with type 2 diabetes mellitus Is this a current diagnosis for this admission?: Yes Plan: Continue the patient's home dose Lyrica. (4) Hypertension Qualifiers: Hypertension type: essential hypertension Qualified Code(s): I10 - Essential (primary) hypertension Is this a current diagnosis for this admission?: Yes Plan: Continue home dose lisinopril. IV labetalol and hydralazine as needed for blood pressure control. Cardiac diet. (5) Chronic pain syndrome Is this a current diagnosis for this admission?: Yes Plan: The patient's home medication regiment of MS Contin 30 mg p.o. every 12 hours, oxycodone 15 mg p.o. every 6 hours as needed for pain, and scheduled Celebrex is continued. (6) Bipolar disorder Is this a current diagnosis for this admission?: Yes Plan: We will continue the patient's home medication regiment of Abilify, Cymbalta, and Requip. - Time Time Spent with patient: 25-34 minutes Medications reviewed and adjusted accordingly: Yes Anticipated discharge: Home
--- NOTE | 2018-11-24 18:39 | Progress Note ---
Provider Note Provider Note: ID Consult Note Asked to review chart by Nicolle Plummer NP. Pt not seen or examined. Mr Hodges is a 43 year old man with PMH including DM, obesity, HTN, pseudoseizures, depression, chronic back pain on opiates, bipolar d/o who presented to the ED on 11/23 with 3-4 weeks of fatigue, generalized malaise, night sweats and worsening dyspnea on exertion. Over the past week he has had increasing cough associated with small amount of hemoptysis. Pt admitted to history of TB exposure as a child, that his mother was treated for TB. He had no fever. WBC count was elevated 17. UDS positive for opiates and benzodiazepines. HIv serology negative. He did not have abnormal lung sounds appreciated apart from decreased breath sounds in the bases. CTA of the chest showed some enlarged mediastinal and L hilar nodes and a thick walled cavitary lesion in the posterior L lung base with surrounding ground glass and reticulonodular change. Blood cultures are pending. Sputum culture is pending. One AFB smear is negative. Vancomycin and meropenem were started empirically. Impression/recommendations Asked to assist with antibiotic management for L lower lung thick walled cavitary lesion. Pt does not appear to have a hx of colonization or infection with multidrug resistant organisms or of recent hopsitalization with broad spectrum IV antibiotics preceding this; as such, a carbapenem is not warranted. Recommend discontinuing meropenem. Unasyn would cover organisms associated with aspiration that might lead to a lung abscess, which is one of the differential considerations here. Kushal Samuel MD [facility] Infectious Diseases pager [phone]
[2018-11-24] MEDS: NORMAL SALINE 1000 ML 1,000 ML IV PRN (20:39)
[2018-11-24] MEDS: MORPHINE SULFATE SR 30 MG TABLET PO SCH (22:19)
[2018-11-24] MEDS: MELATONIN 5 MG TABLET PO SCH (22:19)
[2018-11-24] MEDS: ROPINIROLE HCL 1 MG TABLET PO SCH (22:19)
[2018-11-24] MEDS: ATORVASTATIN CALCIUM 20 MG TABLET PO SCH (22:19)
[2018-11-24] MEDS: VANCOMYCIN HCL 1,000 MG in DEXTROSE 5%-WATER 250 ML IV SCH (22:20)
[2018-11-25] MEDS: MEROPENEM 1 GM in NORMAL SALINE 50 ML IV SCH ×2 (02:00→21:54)
[2018-11-25] MEDS: VANCOMYCIN HCL 1,000 MG in DEXTROSE 5%-WATER 250 ML IV SCH ×2 (05:18→13:57)
[2018-11-25 05:21] LABS: ABSOLUTE EOSINOPHILS # (AUTO) 0.1 10^3/uL (0.0-0.6); ABSOLUTE LYMPHOCYTES (AUTO) 3.1 10^3/uL (0.5-4.7); ABSOLUTE MONOCYTES (AUTO) 0.7 10^3/uL (0.1-1.4); ABSOLUTE NEUT (AUTO) 5.9 10^3/uL (1.7-8.2); BASOPHILS % (AUTO) 0.5 % (0-2); EOSINOPHILS % (AUTO) 0.9 % (0-6); HEMOGLOBIN 11.7 g/dL (13.5-17.0); LYMPHOCYTES % (AUTO) 31.5 % (13-45); MEAN CORPUSCULAR HEMOGLOBIN 27.2 pg (27.0-33.4); MEAN CORPUSCULAR HGB CONC 33.5 g/dL (32.0-36.0); MEAN CORPUSCULAR VOLUME 81 fl (80-97); MONOCYTES % (AUTO) 7.4 % (3-13); PLATELET COUNT 371 10^3/uL (150-450); RED BLOOD COUNT 4.31 10^6/uL (4.35-5.55); SEGMENTED NEUTROPHILS % (AUTO) 59.7 % (42-78); TOTAL CELLS COUNTED % (AUTO) 100 %; WHITE BLOOD COUNT 9.8 10^3/uL (4.0-10.5)
[2018-11-25 05:41] LABS: AMYLASE 53 U/L (30-110); ANION GAP 8 (5-19); BLOOD UREA NITROGEN 20 mg/dL (7-20); CALCIUM 9.3 mg/dL (8.4-10.2); CARBON DIOXIDE 30 mmol/L (22-30); CHLORIDE 101 mmol/L (98-107); CHOLESTEROL 73.04 mg/dL (0-200); GLUCOSE 160 mg/dL (75-110); PHOSPHORUS 4.4 mg/dL (2.5-4.5); POTASSIUM 4.8 mmol/L (3.6-5.0); SODIUM 138.8 mmol/L (137-145); TRIGLYCERIDES 105 mg/dL (<150)
[2018-11-25 05:52] LABS: DIRECT LDL 46 mg/dL (<100)
[2018-11-25] MEDS: NORMAL SALINE 1000 ML 1,000 ML IV PRN ×2 (08:31→23:50)
[2018-11-25] MEDS ORDERED: VANCOMYCIN HCL INJ 1000 MG VIAL IV SCH (10:00)
[2018-11-25] MEDS ORDERED: (PENDING PHARMACY ID) (Lisinopril [Prinivil] 20 MG) PO SCH (10:00)
[2018-11-25] MEDS ORDERED: ARIPIPRAZOLE 5 MG TABLET PO SCH (10:00)
[2018-11-25] MEDS ORDERED: LISINOPRIL 10 MG TABLET PO SCH (10:00)
[2018-11-25] MEDS ORDERED: (PENDING PHARMACY ID) (Duloxetine Hcl [Cymbalta] 120 MG) PO SCH (10:00)
[2018-11-25] MEDS ORDERED: (PENDING PHARMACY ID) (Aripiprazole [Abilify 10 Mg Tablet] 10 MG) PO SCH (10:00)
[2018-11-25] MEDS: DULOXETINE HCL 30 MG CAPSULE.DR PO SCH (10:47)
[2018-11-25] MEDS: INSULIN REG, HUMAN 100 UNIT/ML 3 ML VIAL (PYX) SUBCUT PRN ×2 (10:47→12:48)
[2018-11-25] MEDS: MORPHINE SULFATE SR 30 MG TABLET PO SCH ×2 (10:48→21:59)
[2018-11-25] MEDS: DOCUSATE SODIUM 100 MG CAPSULE PO SCH ×2 (10:48→17:26)
[2018-11-25] MEDS: LISINOPRIL 10 MG TABLET PO SCH (10:48)
[2018-11-25] MEDS: FAMOTIDINE 20 MG TABLET PO SCH ×2 (10:49→22:00)
[2018-11-25] MEDS: CETIRIZINE 10 MG TABLET PO SCH (10:49)
[2018-11-25] MEDS: PREGABALIN 75 MG CAPSULE PO SCH ×2 (10:49→17:26)
--- NOTE | 2018-11-25 11:33 | PDOC PROGRESS REPORT ---
Subjective Progress Note for:: 11/25/18 Subjective:: No overnight complaints. Continues to have productive sputum but no longer having hemoptysis. Has occasional SOB but not different than before. Denies fevers, chills, chest pain, abdominal pain, NV. Reason For Visit: CAVITARY MASS IN THE LEFT LUNG Physical Exam Vital Signs: Temp Pulse Resp BP Pulse Ox 97.3 F 64 16 103/65 96 11/25/18 08:38 11/25/18 08:38 11/25/18 08:38 11/25/18 08:38 11/25/18 08:38 Intake & Output 11/24/18 11/25/18 11/26/18 06:59 06:59 06:59 Intake Total 3050 1850 300 Balance 3050 1850 300 Weight 124.7 kg General appearance: PRESENT: no acute distress, cooperative, well-developed, well-nourished Mouth exam: PRESENT: moist Respiratory exam: PRESENT: decreased breath sounds, unlabored. ABSENT: tachypnea, wheezes Cardiovascular exam: PRESENT: RRR. ABSENT: tachycardia GI/Abdominal exam: PRESENT: soft. ABSENT: tenderness Extremities exam: ABSENT: +1 edema Neurological exam: PRESENT: alert, awake, CN II-XII grossly intact Psychiatric exam: PRESENT: appropriate affect Skin exam: PRESENT: dry Results Laboratory Results: 11/25/18 05:07 11/25/18 05:07 11/25/18 11/25/18 05:07 05:07 WBC 9.8 RBC 4.31 L Hgb 11.7 L Hct 35.0 L MCV 81 MCH 27.2 MCHC 33.5 RDW 13.0 Plt Count 371 Seg Neutrophils % 59.7 Lymphocytes % 31.5 Monocytes % 7.4 Eosinophils % 0.9 Basophils % 0.5 Absolute Neutrophils 5.9 Absolute Lymphocytes 3.1 Absolute Monocytes 0.7 Absolute Eosinophils 0.1 Absolute Basophils 0.0 Sodium 138.8 Potassium 4.8 Chloride 101 Carbon Dioxide 30 Anion Gap 8 BUN 20 Creatinine 0.78 Est GFR ( Amer) > 60 Est GFR (Non-Af Amer) > 60 Glucose 160 H Calcium 9.3 Phosphorus 4.4 Magnesium 2.1 Triglycerides 105 Cholesterol 73.04 LDL Cholesterol Direct 46 VLDL Cholesterol 21.0 HDL Cholesterol 21 L Amylase 53 11/23/18 18:57 Clean Catch Midstream Urine Culture - Final 4,000 col/ml 11/23/18 17:33 Troponin I < 0.012 NT-Pro-B Natriuret Pep 48 Impressions: Chest X-Ray 11/23/18 17:07 IMPRESSION: NO ACUTE RADIOGRAPHIC FINDING IN THE CHEST. Chest/Abdomen CTA 11/23/18 21:18 IMPRESSION: Negative for pulmonary embolus, thoracic aortic aneurysm, or dissection. Cavitary mass in the posterior left lung base, having a lobulated appearance as above. Surrounding ground glass opacity and reticulonodular change. There is also an adjacent pulmonary nodule in the medial left lung base. Tissue diagnosis recommended. This could reflect cavitary neoplasm. Abscess or sequelae of granulomatous disease are other possibilities. TECHNICAL DOCUMENTATION: Quality ID # 436: Final reports with documentation of one or more dose reduction techniques (e.g., Automated exposure control, adjustment of the mA and/or kV according to patient size, use of iterative reconstruction technique) copyright 2011 [employer]- All Rights Reserved Assessment & Plan - Diagnosis (1) Cavitary lesion of lung Is this a current diagnosis for this admission?: Yes Plan: Unclear etiology: malignancy vs. infectious (including TB) vs. septic emboli Work up: - Blood cultures: no growth at 24 hours - Sputum cultures pending. - AFB #1 is negative, continue airborne precautions until AFB negative x3 - PPD placed on 11/24, to be read 11/26/18 Management - ID consulted at [facility] - Per recs, d/c-ed IV meropenem - Continue IV Vanc, started IV Unasyn - Pulmon following and planning to do bronchoscopy. - Supplemental oxygen as needed to maintain oxygen saturations greater than 90%. - As needed nebulizer treatments - Encouraged to use incentive spirometer at bedside. (2) Bipolar disorder Is this a current diagnosis for this admission?: Yes Plan: Continue home Abilify, Cymbalta, and Requip. (3) Diabetes Qualifiers: Diabetes mellitus type: type 2 Is this a current diagnosis for this admission?: Yes Plan: HgA1c 8.6% on check here - Holding oral antidiabetic agents while inpatient. - Continue carb diet - Accu-Cheks before meals and at bedtime and Humalog for sliding scale coverage. - Dietitian is consulted. (4) Hypertension Qualifiers: Hypertension type: essential hypertension Qualified Code(s): I10 - Esse ntial (primary) hypertension Is this a current diagnosis for this admission?: Yes Plan: Normotensive here - CTM - Time Time Spent with patient: Less than 15 minutes - Inpatient Certification Medical Necessity: Need for IV Antibiotics, Risk of Complication if Not Cared For in Hospital
[2018-11-25] MEDS: ARIPIPRAZOLE 5 MG TABLET PO SCH (11:44)
[2018-11-25] MEDS ORDERED: AMPICILLIN SOD/SULBACTAM 3 GM VIAL IV SCH (12:00)
--- NOTE | 2018-11-25 12:13 | CONSULTATION REPORT E ---
Consultation Report NAME: YOHANA TAVERAS : 1975 AGE: 43Y DATE: 11/24/2018 301 A TO: JEAN ELIZABETH M.D. FROM: DIANA RASMUSSEN M.D. Requesting Physician HISTORY OF PRESENT ILLNESS: Patient is a 43-year-old male who came in with hemoptysis and coughing up yellow-greenish phlegm, which started about 4 or 5 days ago. Denies any fever, chills. Claims that his coughing has been increasing for the last 4 or 5 days, with night sweats in the last 1 or 2 weeks. Has to TB/pulmonary tuberculosis from mother about 30 years ago. No nausea, vomiting, diarrhea. Denies any increasing or acutely worsening dyspnea. PAST MEDICAL HISTORY: 1. Hyperlipidemia. 2. Hypertension. 3. Asthma during childhood. 4. Pneumonia 10 years ago. 5. History of possible pseudoseizures. 6. Endocrine: History of diabetes and obesity. 7. Osteoarthritis. PAST SURGICAL HISTORY: 1. Gastric surgery for weight loss. 2. Herniorrhaphy. 3. Orthopedic surgery, right foot, 3 toes. 4. Skin tumor removed. SOCIAL HISTORY: Lives with spouse/significant other. Former smoker. Denies any alcohol abuse or illicit drug use or prescription abuse. FAMILY HISTORY: TB, diabetes and hypertension. ALLERGIES: 1. SERTRALINE. 2. DEXTROMETHORPHAN. 3. PSEUDONEPHRINE. 4. CARBAMAZEPINE. 5. LAMOTRIGINE OR LAMICTAL. 6. BUTRANS. REVIEW OF SYSTEMS: CONSTITUTIONAL: The patient has no fever or chills. EYES: No eye pain, blurry vision. EARS, NOSE AND THROAT: No ear drainage. No nasal discharge. RESPIRATORY: Increased production of yellow-greenish phlegm, blood-tinged. CARDIAC: No angina, palpitations or arrhythmia. ABDOMEN: No abdominal pain. No nausea, vomiting or diarrhea. EXTREMITIES: No joint swelling, no cellulitis. : No dysuria or hematuria. Positive *------*. PHYSICAL EXAMINATION: GENERAL: Patient is awake, alert, oriented x3. VITAL SIGNS: Temperature of 98.7, with a T-max of 98.7. Pulse rate is 29. Blood pressure is 99/72. Saturation 95% on room air. EYES: No jaundice or pallor. EARS, NOSE AND THROAT: No ear drainage. No nasal discharge. CHEST AND LUNGS: No wheezing, no rhonchi, no coarse crackles. CARDIOVASCULAR: S1 is distinct. No murmur, no regurgitation. ABDOMEN: Flabby. Positive bowel sounds. Soft, nondistended. EXTREMITIES: No joint swelling or cellulitis. LABORATORY DATA: CBC done yesterday showed white count of 17, hemoglobin is 13.5, hematocrit is 41 and platelet count is 449,000. Chemistry done yesterday showed sodium is 138, potassium 5.5, chloride 91, CO2 is 13, BUN 28, creatinine is 1.2. Glucose 203 and calcium is 10. Total bilirubin is 0.7, direct bilirubin 0.3. SGOT is 17, SGPT is 18. CT scan showed consolidation involving the left lower lobe with cavitation. ASSESSMENT: 1. Pneumonia, left lower lobe, with cavitation. Pulmonary tuberculosis, atypical mycobacterial infection or fungal infection cannot be completely excluded. Malignancy is possible and cannot be completely excluded. 2. Hemoptysis due to left lower lobe pneumonia. PLAN AND RECOMMENDATIONS: 1. Continue meropenem IV 1 gram every 8 hours. 2. Continue vancomycin IV. 3. Will do sputum AFB, bacteria and fungus today, and sputum AFB tomorrow and Tuesday. Will schedule the patient tentatively for flexible bronchoscopy on Tuesday, after 3 sputum AFB negative smears. 4. Optimize blood pressure control. DICTATING PHYSICIAN: JEAN ELIZABETH MD,SUMANTH,MPH [id number] PHY#: [id number] ID: [id number] JOB#: [id number] ACCT: [id number] cc:JEAN ELIZABETH M.D. > [facility]
[2018-11-25] MEDS: AMPICILLIN SODIUM/SULBACTAM NA 3 GM in NORMAL SALINE 100 ML IV SCH ×3 (12:19→23:49)
[2018-11-25] MEDS ORDERED: MORPHINE SULFATE 10 MG/ML INJ IV ONE (18:00)
[2018-11-25] MEDS: VANCOMYCIN HCL 1,500 MG in DEXTROSE 5%-WATER 250 ML IV SCH (21:59)
[2018-11-25] MEDS: ROPINIROLE HCL 1 MG TABLET PO SCH (22:00)
[2018-11-25] MEDS: ATORVASTATIN CALCIUM 20 MG TABLET PO SCH (22:00)
[2018-11-25] MEDS: MELATONIN 5 MG TABLET PO SCH (22:01)
[2018-11-26] MEDS: TEMAZEPAM 15 MG CAPSULE PO PRN ×2 (02:19→21:49)
[2018-11-26] MEDS: VANCOMYCIN HCL 1,500 MG in DEXTROSE 5%-WATER 250 ML IV SCH ×3 (02:19→15:16)
[2018-11-26 05:26] LABS: ABSOLUTE BASOPHILS # (AUTO) 0.1 10^3/uL (0.0-0.2); ABSOLUTE EOSINOPHILS # (AUTO) 0.1 10^3/uL (0.0-0.6); ABSOLUTE LYMPHOCYTES (AUTO) 3.5 10^3/uL (0.5-4.7); ABSOLUTE MONOCYTES (AUTO) 0.6 10^3/uL (0.1-1.4); BASOPHILS % (AUTO) 0.5 % (0-2); EOSINOPHILS % (AUTO) 1.3 % (0-6); HEMATOCRIT 34.2 % (37.9-51.0); HEMOGLOBIN 11.4 g/dL (13.5-17.0); LYMPHOCYTES % (AUTO) 33.6 % (13-45); MEAN CORPUSCULAR HEMOGLOBIN 27.2 pg (27.0-33.4); MEAN CORPUSCULAR HGB CONC 33.5 g/dL (32.0-36.0); MEAN CORPUSCULAR VOLUME 81 fl (80-97); MONOCYTES % (AUTO) 6.1 % (3-13); PLATELET COUNT 356 10^3/uL (150-450); SEGMENTED NEUTROPHILS % (AUTO) 58.5 % (42-78); TOTAL CELLS COUNTED % (AUTO) 100 %; WHITE BLOOD COUNT 10.3 10^3/uL (4.0-10.5)
[2018-11-26 05:55] LABS: ANION GAP 11 (5-19); BLOOD UREA NITROGEN 18 mg/dL (7-20); CALCIUM 8.9 mg/dL (8.4-10.2); CARBON DIOXIDE 29 mmol/L (22-30); CHLORIDE 99 mmol/L (98-107); GLUCOSE 198 mg/dL (75-110); POTASSIUM 4.9 mmol/L (3.6-5.0); SODIUM 138.5 mmol/L (137-145)
[2018-11-26] MEDS: AMPICILLIN SODIUM/SULBACTAM NA 3 GM in NORMAL SALINE 100 ML IV SCH ×3 (06:46→17:02)
[2018-11-26] MEDS: INSULIN REG, HUMAN 100 UNIT/ML 3 ML VIAL (PYX) SUBCUT PRN ×2 (08:50→17:02)
[2018-11-26] MEDS: MORPHINE SULFATE SR 30 MG TABLET PO SCH ×2 (09:53→21:49)
[2018-11-26] MEDS: LISINOPRIL 10 MG TABLET PO SCH (09:53)
[2018-11-26] MEDS: PREGABALIN 75 MG CAPSULE PO SCH ×2 (09:53→17:02)
[2018-11-26] MEDS: DOCUSATE SODIUM 100 MG CAPSULE PO SCH ×2 (09:53→17:02)
[2018-11-26] MEDS: FAMOTIDINE 20 MG TABLET PO SCH ×2 (09:53→21:49)
[2018-11-26] MEDS: ARIPIPRAZOLE 5 MG TABLET PO SCH (09:53)
[2018-11-26] MEDS: DULOXETINE HCL 30 MG CAPSULE.DR PO SCH (09:54)
[2018-11-26] MEDS: CETIRIZINE 10 MG TABLET PO SCH (09:54)
[2018-11-26] MEDS ORDERED: DEXTROSE 50%-WATER 25 GM/50 ML DISP.SYRIN IV PRN ×2 (13:38)
[2018-11-26] MEDS ORDERED: GLUCAGON,HUMAN RECOMB 1 MG INJ SUBCUT PRN (13:38)
[2018-11-26] MEDS ORDERED: DEXTROSE 40% GEL 15 GM TUBE PO PRN (13:38)
--- NOTE | 2018-11-26 13:50 | PDOC PROGRESS REPORT ---
Subjective Progress Note for:: 11/26/18 Subjective:: No overnight complaints. Cough has decreased and no hemoptysis. Denies fevers, chills, CP, SOB, abdominal pain, NV. Took Restoril last night at 3am and sleepy this AM. Eating OK. No other complaints. Reason For Visit: CAVITARY MASS IN THE LEFT LUNG Physical Exam Vital Signs: Temp Pulse Resp BP Pulse Ox 97.6 F 66 16 119/79 96 11/26/18 12:20 11/26/18 12:20 11/26/18 12:20 11/26/18 12:20 11/26/18 12:20 Intake & Output 11/25/18 11/26/18 11/27/18 06:59 06:59 06:59 Intake Total 1850 2350 1442 Balance 1850 2350 1442 Weight 124.7 kg 127.3 kg General appearance: PRESENT: no acute distress, obese, other - Sleeping but easily arousable Mouth exam: PRESENT: dry mucosa Respiratory exam: PRESENT: decreased breath sounds, unlabored. ABSENT: tachypnea Cardiovascular exam: PRESENT: +S1, +S2. ABSENT: tachycardia GI/Abdominal exam: PRESENT: normal bowel sounds, soft. ABSENT: tenderness Extremities exam: ABSENT: +1 edema Neurological exam: PRESENT: alert, awake, CN II-XII grossly intact Psychiatric exam: PRESENT: appropriate affect Skin exam: PRESENT: dry, intact Results Laboratory Results: 11/26/18 04:11 11/26/18 04:11 11/26/18 11/26/18 04:11 04:11 WBC 10.3 RBC 4.20 L Hgb 11.4 L Hct 34.2 L MCV 81 MCH 27.2 MCHC 33.5 RDW 13.0 Plt Count 356 Seg Neutrophils % 58.5 Lymphocytes % 33.6 Monocytes % 6.1 Eosinophils % 1.3 Basophils % 0.5 Absolute Neutrophils 6.0 Absolute Lymphocytes 3.5 Absolute Monocytes 0.6 Absolute Eosinophils 0.1 Absolute Basophils 0.1 Sodium 138.5 Potassium 4.9 Chloride 99 Carbon Dioxide 29 Anion Gap 11 BUN 18 Creatinine 0.69 Est GFR ( Amer) > 60 Est GFR (Non-Af Amer) > 60 Glucose 198 H Calcium 8.9 Magnesium 2.0 11/24/18 11:16 Sputum Gram Stain - Final 11/23/18 17:33 Troponin I < 0.012 NT-Pro-B Natriuret Pep 48 Impressions: Chest X-Ray 11/23/18 17:07 IMPRESSION: NO ACUTE RADIOGRAPHIC FINDING IN THE CHEST. Chest/Abdomen CTA 11/23/18 21:18 IMPRESSION: Negative for pulmonary embolus, thoracic aortic aneurysm, or dissection. Cavitary mass in the posterior left lung base, having a lobulated appearance as above. Surrounding ground glass opacity and reticulonodular change. There is also an adjacent pulmonary nodule in the medial left lung base. Tissue diagnosis recommended. This could reflect cavitary neoplasm. Abscess or sequelae of granulomatous disease are other possibilities. TECHNICAL DOCUMENTATION: Quality ID # 436: Final reports with documentation of one or more dose reduction techniques (e.g., Automated exposure control, adjustment of the mA and/or kV according to patient size, use of iterative reconstruction technique) copyright 2011 [employer]- All Rights Reserved Assessment & Plan - Diagnosis (1) Cavitary lesion of lung Is this a current diagnosis for this admission?: Yes Plan: Unclear etiology: malignancy vs. infectious vs. septic emboli. Ruled out TB Work up: - Blood cultures: no growth at 48 hours - Sputum cultures pending - AFB #1-3 is negative, discontinue airborne - PPD placed on 11/24, NEGATIVE Management - ID consulted at [facility] - Continue IV Vanc and Unasyn - Pulm should do bronchoscopy on 11/27 (WILL NEED TO CONTACT ON TUESDAY), NPO after midnight - Supplemental oxygen as needed to maintain oxygen saturations greater than 90%. - As needed nebulizer treatments - Encouraged to use incentive spirometer at bedside. (2) Bipolar disorder Is this a current diagnosis for this admission?: Yes Plan: Mood appropriate. Continue home Abilify, Cymbalta, and Requip. (3) Diabetes Qualifiers: Diabetes mellitus type: type 2 Is this a current diagnosis for this admission?: Yes Plan: HgA1c 8.6% this admission - Holding oral antidiabetic agents while inpatient. - Continue carb diet - Accu-Cheks before meals and at bedtime and Humalog for sliding scale coverage. - Dietitian is consulted. (4) Hypertension Qualifiers: Hypertension type: essential hypertension Qualified Code(s): I10 - Essential (primary) hypertension Is this a current diagnosis for this admission?: Yes Plan: BPs reviewed; Normotensive here
[2018-11-26 15:13] LABS: VANCOMYCIN,TROUGH 26.9 ug/mL (5.0-20.0)
[2018-11-26] MEDS ORDERED: MOVANTIK 25 MG PO PRN (17:50)
[2018-11-26] MEDS: ATORVASTATIN CALCIUM 20 MG TABLET PO SCH (21:50)
[2018-11-26] MEDS: ROPINIROLE HCL 1 MG TABLET PO SCH (21:50)
[2018-11-26] MEDS: MELATONIN 5 MG TABLET PO SCH (21:50)
[2018-11-27] MEDS: AMPICILLIN SODIUM/SULBACTAM NA 3 GM in NORMAL SALINE 100 ML IV SCH ×5 (00:31→23:50)
[2018-11-27 05:01] LABS: ABSOLUTE EOSINOPHILS # (AUTO) 0.1 10^3/uL (0.0-0.6); ABSOLUTE LYMPHOCYTES (AUTO) 3.9 10^3/uL (0.5-4.7); ABSOLUTE MONOCYTES (AUTO) 0.6 10^3/uL (0.1-1.4); ABSOLUTE NEUT (AUTO) 6.1 10^3/uL (1.7-8.2); BASOPHILS % (AUTO) 0.4 % (0-2); EOSINOPHILS % (AUTO) 1.3 % (0-6); HEMATOCRIT 38.3 % (37.9-51.0); HEMOGLOBIN 12.9 g/dL (13.5-17.0); LYMPHOCYTES % (AUTO) 35.8 % (13-45); MEAN CORPUSCULAR HEMOGLOBIN 27.6 pg (27.0-33.4); MEAN CORPUSCULAR HGB CONC 33.7 g/dL (32.0-36.0); MEAN CORPUSCULAR VOLUME 82 fl (80-97); MONOCYTES % (AUTO) 5.9 % (3-13); PLATELET COUNT 401 10^3/uL (150-450); RED BLOOD COUNT 4.68 10^6/uL (4.35-5.55); RED CELL DISTRIBUTION WIDTH 13.3 % (11.5-14.0); SEGMENTED NEUTROPHILS % (AUTO) 56.6 % (42-78); TOTAL CELLS COUNTED % (AUTO) 100 %; WHITE BLOOD COUNT 10.8 10^3/uL (4.0-10.5)
[2018-11-27 05:07] LABS: PROTHROMBIN TIME 12.7 SEC (11.4-15.4)
[2018-11-27 05:52] LABS: ANION GAP 10 (5-19); BLOOD UREA NITROGEN 19 mg/dL (7-20); CALCIUM 9.3 mg/dL (8.4-10.2); CARBON DIOXIDE 32 mmol/L (22-30); CHLORIDE 100 mmol/L (98-107); GLUCOSE 222 mg/dL (75-110); POTASSIUM 4.8 mmol/L (3.6-5.0); SODIUM 141.9 mmol/L (137-145)
[2018-11-27] MEDS: ACETAMINOPHEN 325 MG TABLET PO PRN (05:56)
[2018-11-27] MEDS: VANCOMYCIN HCL 1,250 MG in DEXTROSE 5%-WATER 250 ML IV SCH ×3 (07:33→22:04)
--- NOTE | 2018-11-27 08:48 | PDOC PROGRESS REPORT ---
Subjective Progress Note for:: 11/27/18 Subjective:: No overnight complaints. Cough has decreased and no hemoptysis. Denies fevers, chills, CP, SOB, abdominal pain, NV. Took Restoril last night at 3am and sleepy this AM. Eating OK. No other complaints. 11/27/2018 no acute events in the last 24 hours. Afebrile. T-max is 97.7. Patient is going to be n.p.o. from 10 AM undergoing for possible bronchoscopy around 5 PM. AFB negative blood cultures are negative PPD is negative so far. Plan of care is explained to the patient and family member today. Reason For Visit: CAVITARY MASS IN THE LEFT LUNG Physical Exam Vital Signs: Temp Pulse Resp BP Pulse Ox 97.7 F 71 16 101/67 99 11/27/18 07:07 11/27/18 07:07 11/27/18 07:07 11/27/18 07:07 11/27/18 07:07 Intake & Output 11/26/18 11/27/18 11/28/18 06:59 06:59 06:59 Intake Total 2350 1900 100 Balance 2350 1900 100 Weight 127.3 kg 125.2 kg General appearance: PRESENT: no acute distress Head exam: PRESENT: atraumatic Eye exam: PRESENT: PERRLA Mouth exam: PRESENT: moist Neck exam: ABSENT: carotid bruit, JVD, lymphadenopathy, thyromegaly Respiratory exam: PRESENT: clear to auscultation toni. ABSENT: rales, rhonchi, wheezes Cardiovascular exam: PRESENT: RRR. ABSENT: diastolic murmur, rubs, systolic murmur GI/Abdominal exam: PRESENT: normal bowel sounds, soft. ABSENT: distended, guarding, mass, organolmegaly, rebound, tenderness Extremities exam: PRESENT: full ROM. ABSENT: calf tenderness, clubbing, pedal edema Neurological exam: PRESENT: alert, awake, oriented to person, oriented to place, oriented to time, oriented to situation, CN II-XII grossly intact. ABSENT: m otor sensory deficit Psychiatric exam: PRESENT: appropriate affect, normal mood. ABSENT: homicidal ideation, suicidal ideation Results Laboratory Results: 11/27/18 03:42 11/27/18 03:42 11/27/18 11/27/18 03:42 03:42 WBC 10.8 H RBC 4.68 Hgb 12.9 L Hct 38.3 MCV 82 MCH 27.6 MCHC 33.7 RDW 13.3 Plt Count 401 Seg Neutrophils % 56.6 Lymphocytes % 35.8 Monocytes % 5.9 Eosinophils % 1.3 Basophils % 0.4 Absolute Neutrophils 6.1 Absolute Lymphocytes 3.9 Absolute Monocytes 0.6 Absolute Eosinophils 0.1 Absolute Basophils 0.0 Sodium 141.9 Potassium 4.8 Chloride 100 Carbon Dioxide 32 H Anion Gap 10 BUN 19 Creatinine 0.73 Est GFR ( Amer) > 60 Est GFR (Non-Af Amer) > 60 Glucose 222 H Calcium 9.3 Magnesium 2.2 11/23/18 23:08 Sputum AFB Smear Concentration - Final 11/23/18 23:08 Sputum Acid Fast Bacilli Smear - Final 11/24/18 11:16 Sputum Gram Stain - Final 11/23/18 17:33 Troponin I < 0.012 NT-Pro-B Natriuret Pep 48 Impressions: Chest X-Ray 11/23/18 17:07 IMPRESSION: NO ACUTE RADIOGRAPHIC FINDING IN THE CHEST. Chest/Abdomen CTA 11/23/18 21:18 IMPRESSION: Negative for pulmonary embolus, thoracic aortic aneurysm, or dissection. Cavitary mass in the posterior left lung base, having a lobulated appearance as above. Surrounding ground glass opacity and reticulonodular change. There is also an adjacent pulmonary nodule in the medial left lung base. Tissue diagnosis recommended. This could reflect cavitary neoplasm. Abscess or sequelae of granulomatous disease are other possibilities. TECHNICAL DOCUMENTATION: Quality ID # 436: Final reports with documentation of one or more dose reduction techniques (e.g., Automated exposure control, adjustment of the mA and/or kV according to patient size, use of iterative reconstruction technique) copyright 2011 [employer]- All Rights Reserved Assessment & Plan - Diagnosis (1) Cavitary lesion of lung Is this a current diagnosis for this admission?: Yes Plan: Unclear etiology: malignancy vs. infectious vs. septic emboli. Ruled out TB Work up: - Blood cultures: no growth at 48 hours - Sputum cultures pending - AFB #1-3 is negative, discontinue airborne - PPD placed on 11/24, NEGATIVE Management - ID consulted at [facility] - Continue IV Vanc and Unasyn - Pulm should do bronchoscopy on 11/27 (WILL NEED TO CONTACT ON TUESDAY), NPO after midnight - Supplemental oxygen as needed to maintain oxygen saturations greater than 90%. - As needed nebulizer treatments - Encouraged to use incentive spirometer at bedside. 11/27/2018-patient was admitted with cavitary lesion of the lung. Cavitary lesion of the left lung and enlarged hilar lymph nodes are noticed in the CTA of the chest. Pulmonary consult was done Dr. Valverde is going to do the bronchoscopy today it was confirmed by calling him. AFB's, PPD blood cultures and sputum cultures are negative so far. Patient is afebrile. On IV vancomycin and Unasyn as per ID recommendations. Pulse ox is 99% on room air. Etiology of the cavitary lesion is unknown so far. (2) Diabetes mellitus type 2 in nonobese Is this a current diagnosis for this admission?: Yes Plan: 11/27/2018 patient history of type 2 diabetes mellitus hemoglobin A1c E A1c is 8.6. Blood sugar is 137 today. he is on insulin sliding scale. Dietary education was done. Diet exercise weight loss and lifestyle modifications are discussed with the patient. Plan is to continue the present management today. (3) Hypertension Qualifiers: Hypertension type: essential hypertension Qualified Code(s): I10 - Essential (primary) hypertension Is this a current diagnosis for this admission?: Yes Plan: 11/27/2018-patient blood pressure today is 101 67. Patient is asymptomatic. Patient has history of hypertension. Patient is presently on lisinopril 20 mg p.o. daily plan is to continue the present management. (4) Bipolar disorder Is this a current diagnosis for this admission?: Yes Plan: 11/27/2018-patient has history of bipolar disorder. On Abilify 10 mg p.o. daily and Cymbalta 120 mg p.o. daily plan to continue those medications. (5) Pneumonia Is this a current diagnosis for this admission?: Yes Plan: 11/27/2018-patient came in with most likely community-acquired pneumonia presently on Unasyn and IV vancomycin. Patient is afebrile. Blood cultures and sputum cultures are negative. patient came in with hemoptysis most likely secondary to pneumonia. - Time Time Spent with patient: 15-24 minutes Medications reviewed and adjusted accordingly: Yes Anticipated discharge: Home
[2018-11-27] MEDS ORDERED: ONDANSETRON 4 MG TAB.RAPDIS PO PRN (09:00)
[2018-11-27] MEDS ORDERED: ONDANSETRON HCL INJ/PF 4 MG/2 ML SDV IV PRN (09:00)
[2018-11-27] MEDS: DOCUSATE SODIUM 100 MG CAPSULE PO SCH ×2 (09:44→17:08)
[2018-11-27] MEDS: LISINOPRIL 10 MG TABLET PO SCH (09:44)
[2018-11-27] MEDS: DULOXETINE HCL 30 MG CAPSULE.DR PO SCH (09:45)
[2018-11-27] MEDS: MORPHINE SULFATE SR 30 MG TABLET PO SCH ×2 (09:45→22:04)
[2018-11-27] MEDS: PREGABALIN 75 MG CAPSULE PO SCH ×2 (09:45→17:08)
[2018-11-27] MEDS: FAMOTIDINE 20 MG TABLET PO SCH ×2 (09:46→22:05)
[2018-11-27] MEDS: CETIRIZINE 10 MG TABLET PO SCH (09:46)
[2018-11-27] MEDS: ARIPIPRAZOLE 5 MG TABLET PO SCH (09:46)
--- NOTE | 2018-11-27 10:42 | RADIOLOGY REPORT (SQ) ---
EXAM DESCRIPTION: CHEST 2 VIEWS COMPLETED DATE/TIME: 11/27/2018 10:25 am REASON FOR STUDY: pneumonia COMPARISON: Two-view chest 11/23/2018, 06/08/2016 EXAM PARAMETERS: NUMBER OF VIEWS: two views TECHNIQUE: Digital Frontal and Lateral radiographic views of the chest acquired. RADIATION DOSE: NA LIMITATIONS: none FINDINGS: LUNGS AND PLEURA: No opacities, masses or pneumothorax. No pleural effusion. MEDIASTINUM AND HILAR STRUCTURES: No masses or contour abnormalities. HEART AND VASCULAR STRUCTURES: Heart normal size. No evidence for failure. BONES: No acute findings. HARDWARE: None in the chest. OTHER: No other significant finding. IMPRESSION: NO ACUTE RADIOGRAPHIC FINDING IN THE CHEST. TECHNICAL DOCUMENTATION: JOB ID: [id number] [employer]- All Rights Reserved Reading location - IP/workstation name: [email or web address]
[2018-11-27] MEDS: INSULIN REG, HUMAN 100 UNIT/ML 3 ML VIAL (PYX) SUBCUT PRN ×2 (19:07→22:16)
[2018-11-27] MEDS ORDERED: DEXTROSE 50%-WATER 25 GM/50 ML DISP.SYRIN IV PRN ×2 (19:56)
[2018-11-27] MEDS ORDERED: GLUCAGON,HUMAN RECOMB 1 MG INJ SUBCUT PRN (19:56)
[2018-11-27] MEDS ORDERED: DEXTROSE 40% GEL 15 GM TUBE PO PRN ×2 (19:56)
[2018-11-27] MEDS: TEMAZEPAM 15 MG CAPSULE PO PRN (22:04)
[2018-11-27] MEDS: MELATONIN 5 MG TABLET PO SCH (22:05)
[2018-11-27] MEDS: ROPINIROLE HCL 1 MG TABLET PO SCH (22:05)
[2018-11-27] MEDS: ATORVASTATIN CALCIUM 20 MG TABLET PO SCH (22:05)
[2018-11-27] MEDS: MAG HYDROX/AL HYDROX/SIMETH SUSP 30 ML UDCUP PO PRN (22:07)
--- NOTE | 2018-11-27 23:20 | EKG REPORT ---
SEVERITY:- NORMAL ECG - SINUS RHYTHM : Confirmed by: Sherrie Coon MD 27-Nov-2018 23:20:20
[2018-11-27 23:54] LABS: CREATINE KINASE MB 0.34 ng/mL (<4.55)
[2018-11-27 23:58] LABS: TROPONIN I < 0.012 ng/mL
[2018-11-28] MEDS: ACETAMINOPHEN 325 MG TABLET PO PRN (02:09)
--- NOTE | 2018-11-28 04:12 | PROGRESS NOTE E ---
Progress Note NAME: YOHANA TAVERAS : 1975 AGE: 43Y DATE: 11/27/2018 ROOM: 301 SUBJECTIVE: The patient is a 43-year-old male without came in with pneumonia and cavitation in the left lower lobe. Currently feeling better. Denies any vomiting, diarrhea. Denies any hemoptysis. Denies any increased sputum production. The patient is receiving IV Unasyn and IV vancomycin. No chest pain or upper back pain. OBJECTIVE: GENERAL: The patient is awake, alert, oriented x3. VITAL SIGNS: Temperature of 97.4, with a T-max of 97.7. Heart rate is 70, blood pressure 110/80, respiratory rate 15, and the saturation 98% on on room air. EYES: No jaundice or pallor. EARS, NOSE AND THROAT: No ear drainage. No nasal discharge. CHEST AND LUNGS: No wheezing. No rhonchi. No coarse crackles. CARDIOVASCULAR: S1 is distinct. No murmur. No regurgitation. ABDOMEN: Flabby. Positive bowel sounds. Soft, nondistended, nontender. EXTREMITIES: No joint swelling or cellulitis. LABORATORY DATA: CBC done today showed white count of 10.8, hemoglobin is 12.9, hematocrit is 38.3, and the platelet count is 401. PT is 12.7. INR is 0.9. Chemistry today: Sodium is 141.9, potassium 4.8, chloride 100, CO2 is 32, BUN 19, creatinine 0.73, calcium is 9.3, magnesium is 2.2. ASSESSMENT: PNEUMONIA LEFT LOWER LOBE WITH CAVITATION. POSSIBLE MRSA PNEUMONIA, PSEUDOMONAS PNEUMONIA, TUBERCULOSIS PNEUMONIA, PULMONARY INFECTION, OR LUNG CANCER. PLAN/RECOMMENDATIONS: 1. We will schedule the patient for a flexible bronchoscopy tomorrow, do bronchial washing, lavage on the left lower lobe to determine the infectious etiology or other lesion. 2. The patient may be able to go home tomorrow or the next day with Augmentin or Levaquin 750 mg daily for additional 2 weeks after hospital discharge. 3. Recommend pulmonary clinic followup 2-3 weeks after hospital discharge. If you have any questions, please feel free to call me. DICTATING PHYSICIAN: JEAN ELIZABETH MD,SUMANTH,MPH [id number] [facility]#: [id number] 2003 ID: [id number] JOB#: [id number] ACCT: [id number] cc: > MTDD
[2018-11-28] MEDS: AMPICILLIN SODIUM/SULBACTAM NA 3 GM in NORMAL SALINE 100 ML IV SCH ×4 (05:23→23:29)
[2018-11-28 06:43] LABS: ABSOLUTE BASOPHILS # (AUTO) 0.1 10^3/uL (0.0-0.2); ABSOLUTE EOSINOPHILS # (AUTO) 0.1 10^3/uL (0.0-0.6); ABSOLUTE LYMPHOCYTES (AUTO) 4.1 10^3/uL (0.5-4.7); ABSOLUTE MONOCYTES (AUTO) 0.7 10^3/uL (0.1-1.4); ABSOLUTE NEUT (AUTO) 5.2 10^3/uL (1.7-8.2); BASOPHILS % (AUTO) 0.6 % (0-2); EOSINOPHILS % (AUTO) 1.2 % (0-6); HEMATOCRIT 38.6 % (37.9-51.0); HEMOGLOBIN 12.9 g/dL (13.5-17.0); LYMPHOCYTES % (AUTO) 40.3 % (13-45); MEAN CORPUSCULAR HEMOGLOBIN 27.2 pg (27.0-33.4); MEAN CORPUSCULAR HGB CONC 33.4 g/dL (32.0-36.0); MEAN CORPUSCULAR VOLUME 81 fl (80-97); MONOCYTES % (AUTO) 6.5 % (3-13); PLATELET COUNT 407 10^3/uL (150-450); RED BLOOD COUNT 4.75 10^6/uL (4.35-5.55); RED CELL DISTRIBUTION WIDTH 13.1 % (11.5-14.0); SEGMENTED NEUTROPHILS % (AUTO) 51.4 % (42-78); TOTAL CELLS COUNTED % (AUTO) 100 %; WHITE BLOOD COUNT 10.1 10^3/uL (4.0-10.5)
[2018-11-28 06:48] LABS: ALANINE AMINOTRANSFERASE 25 U/L (21-72); ALBUMIN 3.8 g/dL (3.5-5.0); ALKALINE PHOSPHATASE 102 U/L (38-126); ANION GAP 8 (5-19); ASPARTATE AMINO TRANSFERASE 23 U/L (17-59); BILIRUBIN,DIRECT 0.3 mg/dL (0.0-0.4); BILIRUBIN,TOTAL 0.3 mg/dL (0.2-1.3); BLOOD UREA NITROGEN 20 mg/dL (7-20); CALCIUM 9.2 mg/dL (8.4-10.2); CARBON DIOXIDE 32 mmol/L (22-30); CHLORIDE 101 mmol/L (98-107); CREATINE KINASE 26 U/L (55-170); GLUCOSE 133 mg/dL (75-110); POTASSIUM 4.6 mmol/L (3.6-5.0); SODIUM 140.8 mmol/L (137-145); TOTAL PROTEIN 6.7 g/dL (6.3-8.2)
[2018-11-28] MEDS: VANCOMYCIN HCL 1,250 MG in DEXTROSE 5%-WATER 250 ML IV SCH (06:52)
[2018-11-28 07:08] LABS: CREATINE KINASE MB 0.32 ng/mL (<4.55)
[2018-11-28 07:11] LABS: TROPONIN I < 0.012 ng/mL
[2018-11-28] MEDS ORDERED: DIPHENHYDRAMINE HCL 50 MG/ML VIAL ONE (07:31)
[2018-11-28] MEDS ORDERED: ONDANSETRON HCL INJ/PF 4 MG/2 ML SDV ONE (07:31)
[2018-11-28] MEDS ORDERED: EPINEPHRINE INJ/PF 1 MG/1 ML AMPULE ONE (07:31)
[2018-11-28] MEDS ORDERED: LIDOCAINE 2% INJ (20 MG/ML) 20 ML MDV ONE (07:31)
[2018-11-28] MEDS ORDERED: NALOXONE HCL INJ/PF 0.4 MG/1 ML SDV ONE (07:32)
[2018-11-28] MEDS ORDERED: LIDOCAINE 2% JELLY 5 ML TUBE ONE (07:32)
[2018-11-28] MEDS ORDERED: GLUCAGON,HUMAN RECOMB 1 MG INJ ONE (07:33)
[2018-11-28] MEDS ORDERED: FLUMAZENIL INJ 0.5 MG/5 ML VIAL ONE (07:33)
[2018-11-28] MEDS ORDERED: EPINEPHRINE INJ 1 MG/10 ML DISP.SYRIN ONE (07:33)
--- NOTE | 2018-11-28 08:48 | PDOC PROGRESS REPORT ---
Subjective Progress Note for:: 11/28/18 Subjective:: No overnight complaints. Cough has decreased and no hemoptysis. Denies fevers, chills, CP, SOB, abdominal pain, NV. Took Restoril last night at 3am and sleepy this AM. Eating OK. No other complaints. 11/27/2018 no acute events in the last 24 hours. Afebrile. T-max is 97.7. Patient is going to be n.p.o. from 10 AM undergoing for possible bronchoscopy around 5 PM. AFB negative blood cultures are negative PPD is negative so far. Plan of care is explained to the patient and family member today. 11/28/2018-no acute events in the last 24 hours. Patient is afebrile. T-max is 97.6. Patient was supposed to go to bronchoscopy yesterday and it was postponed for today. Patient is waiting for IV access before he goes to bronchoscopy today. No complaints from the patient. Alert and awake oriented. Reason For Visit: CAVITARY MASS IN THE LEFT LUNG Physical Exam Vital Signs: Temp Pulse Resp BP Pulse Ox 97.6 F 61 18 120/82 98 11/28/18 07:00 11/28/18 07:00 11/28/18 07:00 11/28/18 07:00 11/28/18 07:00 Intake & Output 11/27/18 11/28/18 11/29/18 06:59 06:59 06:59 Intake Total 1900 3152 Balance 1900 3152 Weight 125.2 kg 126.6 kg General appearance: PRESENT: no acute distress Head exam: PRESENT: atraumatic Eye exam: PRESENT: PERRLA Neck exam: ABSENT: carotid bruit, JVD, lymphadenopathy, thyromegaly Respiratory exam: PRESENT: decreased breath sounds Cardiovascular exam: PRESENT: RRR. ABSENT: diastolic murmur, rubs, systolic murmur GI/Abdominal exam: PRESENT: normal bowel sounds, soft. ABSENT: distended, guarding, mass, organolmegaly, rebound, tenderness Extremities exam: PRESENT: full ROM. ABSENT: calf tenderness, clubbing, pedal edema Neurological exam: PRESENT: alert, awake, oriented to person, oriented to place, oriented to time, oriented to situation, CN II-XII grossly intact. ABSENT: motor sensory deficit Psychiatric exam: PRESENT: appropriate affect, normal mood. ABSENT: homicidal ideation, suicidal ideation Results Laboratory Results: 11/28/18 06:11 11/28/18 06:11 11/28/18 11/28/18 06:11 06:11 WBC 10.1 RBC 4.75 Hgb 12.9 L Hct 38.6 MCV 81 MCH 27.2 MCHC 33.4 RDW 13.1 Plt Count 407 Seg Neutrophils % 51.4 Lymphocytes % 40.3 Monocytes % 6.5 Eosinophils % 1.2 Basophils % 0.6 Absolute Neutrophils 5.2 Absolute Lymphocytes 4.1 Absolute Monocytes 0.7 Absolute Eosinophils 0.1 Absolute Basophils 0.1 Sodium 140.8 Potassium 4.6 Chloride 101 Carbon Dioxide 32 H Anion Gap 8 BUN 20 Creatinine 0.63 Est GFR ( Amer) > 60 Est GFR (Non-Af Amer) > 60 Glucose 133 H Calcium 9.2 Magnesium 2.2 Total Bilirubin 0.3 AST 23 ALT 25 Alkaline Phosphatase 102 Total Protein 6.7 Albumin 3.8 11/24/18 11:16 Sputum Gram Stain - Final 11/24/18 11:16 Sputum Sputum Culture - Final Group F Beta Streptococcus Normal Gema 11/23/18 11/27/18 11/27/18 17:33 23:23 23:23 Creatine Kinase 33 L CK-MB (CK-2) 0.34 Troponin I < 0.012 < 0.012 NT-Pro-B Natriuret Pep 48 11/28/18 11/28/18 06:11 06:11 Creatine Kinase 26 L CK-MB (CK-2) 0.32 Troponin I < 0.012 NT-Pro-B Natriuret Pep Impressions: Chest/Abdomen CTA 11/23/18 21:18 IMPRESSION: Negative for pulmonary embolus, thoracic aortic aneurysm, or dissection. Cavitary mass in the posterior left lung base, having a lobulated appearance as above. Surrounding ground glass opacity and reticulonodular change. There is also an adjacent pulmonary nodule in the medial left lung base. Tissue diagnosis recommended. This could reflect cavitary neoplasm. Abscess or sequelae of granulomatous disease are other possibilities. TECHNICAL DOCUMENTATION: Quality ID # 436: Final reports with documentation of one or more dose reduction techniques (e.g., Automated exposure control, adjustment of the mA and/or kV according to patient size, use of iterative reconstruction technique) copyright 2011 [employer]- All Rights Reserved Chest X-Ray 11/27/18 00:00 IMPRESSION: NO ACUTE RADIOGRAPHIC FINDING IN THE CHEST. Assessment & Plan - Diagnosis (1) Pneumonia Is this a current diagnosis for this admission?: Yes Plan: 11/27/2018-patient came in with most likely community-acquired pneumonia pre sently on Unasyn and IV vancomycin. Patient is afebrile. Blood cultures and sputum cultures are negative. patient came in with hemoptysis most likely secondary to pneumonia. 11/28/2018-patient has minute he acquired pneumonia presently on Unasyn and vancomycin. Cultures are negative so far. Chest x-ray was done negative for pneumonia. (2) Cavitary lesion of lung Is this a current diagnosis for this admission?: Yes Plan: Unclear etiology: malignancy vs. infectious vs. septic emboli. Ruled out TB Work up: - Blood cultures: no growth at 48 hours - Sputum cultures pending - AFB #1-3 is negative, discontinue airborne - PPD placed on 11/24, NEGATIVE Management - ID consulted at [facility] - Continue IV Vanc and Unasyn - Pulm should do bronchoscopy on 11/27 (WILL NEED TO CONTACT ON TUESDAY), NPO after midnight - Supplemental oxygen as needed to maintain oxygen saturations greater than 90%. - As needed nebulizer treatments - Encouraged to use incentive spirometer at bedside. 11/27/2018-patient was admitted with cavitary lesion of the lung. Cavitary lesion of the left lung and enlarged hilar lymph nodes are noticed in the CTA of the chest. Pulmonary consult was done Dr. Valverde is going to do the bronchoscopy today it was confirmed by calling him. AFB's, PPD blood cultures and sputum cultures are negative so far. Patient is afebrile. On IV vancomycin and Unasyn as per ID recommendations. Pulse ox is 99% on room air. Etiology of the cavitary lesion is unknown so far. 11/28/2018-patient was admitted with left-sided cavitary lesion. In association with enlarged hilar lymph nodes. He is going for bronchoscopy today. The cultures are negative so far. AFB is negative. Patient is presently on IV vancomycin and IV Unasyn. Pulse ox is 96% on room air. Examination of the chest chest bilateral entry was decreased but no wheezing no crepitations present. Plan is to continue the present management today. (3) Diabetes mellitus type 2 in nonobese Is this a current diagnosis for this admission?: Yes Plan: 11/27/2018 patient history of type 2 diabetes mellitus hemoglobin A1c E A1c is 8.6. Blood sugar is 137 today. he is on insulin sliding scale. Dietary education was done. Diet exercise weight loss and lifestyle modifications are discussed with the patient. Plan is to continue the present management today. 11/28/2018-patient has history of diabetes mellitus, hemoglobin A1c is 8.6. Blood sugar is 123 today. Presently on insulin sliding scale. Plan is to continue the present management. (4) Hypertension Qualifiers: Hypertension type: essential hypertension Qualified Code(s): I10 - Essential (primary) hypertension Is this a current diagnosis for this admission?: Yes Plan: 11/27/2018-patient blood pressure today is 101 /67. Patient is asymptomatic. Patient has history of hypertension. Patient is presently on lisinopril 20 mg p.o. daily plan is to continue the present management. 11/28/2018-blood pressure today is 101/67. Patient is on lisinopril 20 mg p.o. daily plan is to continue the present management. (5) Bipolar disorder Is this a current diagnosis for this admission?: Yes Plan: 11/27/2018-patient has history of bipolar disorder. On Abilify 10 mg p.o. daily and Cymbalta 120 mg p.o. daily plan to continue those medications. 11/28/2018-patient has history of bipolar disorder, on Abilify 10 mg p.o. daily, Cymbalta 120 mg p.o. daily plan is to continue the present management. - Time Time Spent with patient: 15-24 minutes Smoking Cessation Education: over 10 minutes Medications reviewed and adjusted accordingly: Yes Anticipated discharge: Home
[2018-11-28] MEDS ORDERED: (PENDING PHARMACY ID) (Empagliflozin [Jardiance] 25 MG) PO SCH (10:00)
[2018-11-28] MEDS: MIDAZOLAM 2 MG/2 ML INJ ONE ×9 (10:27→10:48)
[2018-11-28] MEDS: FENTANYL CITRATE INJ/PF 100 MCG/2 ML AMPUL ONE ×3 (10:35→10:45)
--- NOTE | 2018-11-28 12:16 | RADIOLOGY REPORT (SQ) ---
EXAM DESCRIPTION: CHEST SINGLE VIEW COMPLETED DATE/TIME: 11/28/2018 12:02 pm REASON FOR STUDY: SP BRONCH COMPARISON: Chest films 11/27/2018, 11/23/2018 CT chest 11/23/2018 EXAM PARAMETERS: NUMBER OF VIEWS: One view. TECHNIQUE: Single frontal radiographic view of the chest acquired. RADIATION DOSE: NA LIMITATIONS: None. FINDINGS: LUNGS AND PLEURA: Persistent cavitary mass left posterior costophrenic sulcus. No acute infiltrates. No pleural effusion or pneumothorax. MEDIASTINUM AND HILAR STRUCTURES: No masses. Contour normal. HEART AND VASCULAR STRUCTURES: Heart normal in size. Normal vasculature. BONES: No acute findings. HARDWARE: None in the chest. OTHER: No other significant finding. IMPRESSION: Persistent cavitary mass left posterior costophrenic sulcus. TECHNICAL DOCUMENTATION: JOB ID: [id number] [employer]- All Rights Reserved Reading location - IP/workstation name: [email or web address]
[2018-11-28 12:30] LABS: TROPONIN I < 0.012 ng/mL
[2018-11-28] MEDS: LISINOPRIL 10 MG TABLET PO SCH (13:03)
[2018-11-28] MEDS: PREGABALIN 75 MG CAPSULE PO SCH ×2 (13:04→17:36)
[2018-11-28] MEDS: DULOXETINE HCL 30 MG CAPSULE.DR PO SCH (13:05)
[2018-11-28] MEDS: DOCUSATE SODIUM 100 MG CAPSULE PO SCH ×2 (13:05→17:36)
[2018-11-28] MEDS: MORPHINE SULFATE SR 30 MG TABLET PO SCH ×2 (13:05→22:47)
[2018-11-28] MEDS: CETIRIZINE 10 MG TABLET PO SCH (13:05)
[2018-11-28] MEDS: ARIPIPRAZOLE 5 MG TABLET PO SCH (13:06)
[2018-11-28] MEDS: FAMOTIDINE 20 MG TABLET PO SCH ×2 (13:49→22:48)
[2018-11-28] MEDS: MAG HYDROX/AL HYDROX/SIMETH SUSP 30 ML UDCUP PO PRN (16:07)
[2018-11-28] MEDS: OXYCODONE HCL IR 5 MG TABLET PO PRN (16:07)
[2018-11-28] MEDS: LANSOPRAZOLE 30 MG TAB.RAP.DR PO SCH (16:38)
--- NOTE | 2018-11-28 17:53 | EKG REPORT ---
SEVERITY:- NORMAL ECG - SINUS RHYTHM : Confirmed by: Sherrie Coon MD 28-Nov-2018 17:52:01
[2018-11-28] MEDS ORDERED: ROPINIROLE HCL 1 MG TABLET PO SCH (22:00)
[2018-11-28] MEDS: TEMAZEPAM 15 MG CAPSULE PO PRN (22:47)
[2018-11-28] MEDS: INSULIN REG, HUMAN 100 UNIT/ML 3 ML VIAL (PYX) SUBCUT PRN (22:47)
[2018-11-28] MEDS: ATORVASTATIN CALCIUM 20 MG TABLET PO SCH ×2 (22:48)
[2018-11-28] MEDS: MELATONIN 5 MG TABLET PO SCH (22:48)
[2018-11-28] MEDS: ROPINIROLE HCL 1 MG TABLET PO SCH (22:49)
[2018-11-29] MEDS: OXYCODONE HCL IR 5 MG TABLET PO PRN ×2 (01:05→18:20)
[2018-11-29] MEDS: AMPICILLIN SODIUM/SULBACTAM NA 3 GM in NORMAL SALINE 100 ML IV SCH ×4 (05:36→23:13)
[2018-11-29] MEDS: LANSOPRAZOLE 30 MG TAB.RAP.DR PO SCH (05:37)
[2018-11-29] MEDS: VANCOMYCIN HCL 1,500 MG in DEXTROSE 5%-WATER 250 ML IV SCH ×2 (06:40→18:21)
[2018-11-29 08:07] LABS: ABSOLUTE EOSINOPHILS # (AUTO) 0.1 10^3/uL (0.0-0.6); ABSOLUTE LYMPHOCYTES (AUTO) 2.8 10^3/uL (0.5-4.7); ABSOLUTE MONOCYTES (AUTO) 0.6 10^3/uL (0.1-1.4); ABSOLUTE NEUT (AUTO) 5.2 10^3/uL (1.7-8.2); BASOPHILS % (AUTO) 0.4 % (0-2); EOSINOPHILS % (AUTO) 1.5 % (0-6); HEMATOCRIT 36.3 % (37.9-51.0); HEMOGLOBIN 12.1 g/dL (13.5-17.0); LYMPHOCYTES % (AUTO) 31.5 % (13-45); MEAN CORPUSCULAR HEMOGLOBIN 27.5 pg (27.0-33.4); MEAN CORPUSCULAR HGB CONC 33.4 g/dL (32.0-36.0); MEAN CORPUSCULAR VOLUME 82 fl (80-97); MONOCYTES % (AUTO) 7.3 % (3-13); PLATELET COUNT 421 10^3/uL (150-450); RED BLOOD COUNT 4.41 10^6/uL (4.35-5.55); RED CELL DISTRIBUTION WIDTH 13.3 % (11.5-14.0); SEGMENTED NEUTROPHILS % (AUTO) 59.3 % (42-78); TOTAL CELLS COUNTED % (AUTO) 100 %; WHITE BLOOD COUNT 8.8 10^3/uL (4.0-10.5)
[2018-11-29 08:29] LABS: ALANINE AMINOTRANSFERASE 32 U/L (21-72); ALBUMIN 3.8 g/dL (3.5-5.0); ALKALINE PHOSPHATASE 101 U/L (38-126); ANION GAP 10 (5-19); ASPARTATE AMINO TRANSFERASE 21 U/L (17-59); BILIRUBIN,DIRECT 0.2 mg/dL (0.0-0.4); BILIRUBIN,TOTAL 0.3 mg/dL (0.2-1.3); BLOOD UREA NITROGEN 18 mg/dL (7-20); CALCIUM 9.2 mg/dL (8.4-10.2); CARBON DIOXIDE 35 mmol/L (22-30); CHLORIDE 97 mmol/L (98-107); GLUCOSE 151 mg/dL (75-110); POTASSIUM 4.9 mmol/L (3.6-5.0); SODIUM 142.2 mmol/L (137-145); TOTAL PROTEIN 6.7 g/dL (6.3-8.2)
[2018-11-29] MEDS: DULOXETINE HCL 30 MG CAPSULE.DR PO SCH (09:33)
[2018-11-29] MEDS: PREGABALIN 75 MG CAPSULE PO SCH ×2 (09:34→18:20)
[2018-11-29] MEDS: CETIRIZINE 10 MG TABLET PO SCH (09:35)
[2018-11-29] MEDS: FAMOTIDINE 20 MG TABLET PO SCH ×2 (09:36→21:43)
[2018-11-29] MEDS: ARIPIPRAZOLE 5 MG TABLET PO SCH (09:36)
[2018-11-29] MEDS: MORPHINE SULFATE SR 30 MG TABLET PO SCH ×2 (09:36→21:45)
[2018-11-29] MEDS: DOCUSATE SODIUM 100 MG CAPSULE PO SCH ×2 (09:36→18:19)
[2018-11-29] MEDS: LISINOPRIL 10 MG TABLET PO SCH ×2 (09:43→12:42)
--- NOTE | 2018-11-29 09:47 | PDOC PROGRESS REPORT ---
Subjective Progress Note for:: 11/29/18 Subjective:: No overnight complaints. Cough has decreased and no hemoptysis. Denies fevers, chills, CP, SOB, abdominal pain, NV. Took Restoril last night at 3am and sleepy this AM. Eating OK. No other complaints. 11/27/2018 no acute events in the last 24 hours. Afebrile. T-max is 97.7. Patient is going to be n.p.o. from 10 AM undergoing for possible bronchoscopy around 5 PM. AFB negative blood cultures are negative PPD is negative so far. Plan of care is explained to the patient and family member today. 11/28/2018-no acute events in the last 24 hours. Patient is afebrile. T-max is 97.6. Patient was supposed to go to bronchoscopy yesterday and it was postponed for today. Patient is waiting for IV access before he goes to bronchoscopy today. No complaints from the patient. Alert and awake oriented. 11/29/2018-patient has a bronchoscopy yesterday waiting for the culture reports. Patient is afebrile. Temperature 97.6. Blood pressure is slightly low this morning lisinopril was on hold. Patient is comfortably in the bed communicating very well. Reason For Visit: CAVITARY MASS IN THE LEFT LUNG Physical Exam Vital Signs: Temp Pulse Resp BP Pulse Ox 97.8 F 63 16 91/57 L 97 11/29/18 07:18 11/29/18 07:18 11/29/18 07:18 11/29/18 07:18 11/29/18 07:18 Intake & Output 11/28/18 11/29/18 11/30/18 06:59 06:59 06:59 Intake Total 3152 2305 Balance 3152 2305 Weight 126.6 kg 125.9 kg General appearance: PRESENT: no acute distress Head exam: PRESENT: atraumatic Eye exam: PRESENT: PERRLA Mouth exam: PRESENT: dry mucosa Neck exam: ABSENT: carotid bruit, JVD, lymphadenopathy, thyromegaly Respiratory exam: PRESENT: clear to auscultation toni. ABSENT: rales, rhonchi, wheezes Cardiovascular exam: PRESENT: RRR. ABSENT: diastolic murmur, rubs, systolic murmur GI/Abdominal exam: PRESENT: normal bowel sounds, soft. ABSENT: distended, guarding, mass, organolmegaly, rebound, tenderness Extremities exam: PRESENT: full ROM. ABSENT: calf tenderness, clubbing, pedal edema Neurological exam: PRESENT: alert, awake, oriented to person, oriented to place, oriented to time, oriented to situation, CN II-XII grossly intact. ABSENT: motor sensory deficit Psychiatric exam: PRESENT: appropriate affect, normal mood. ABSENT: homicidal ideation, suicidal ideation Results Laboratory Results: 11/29/18 06:45 11/29/18 06:45 11/29/18 11/29/18 06:45 06:45 WBC 8.8 RBC 4.41 Hgb 12.1 L Hct 36.3 L MCV 82 MCH 27.5 MCHC 33.4 RDW 13.3 Plt Count 421 Seg Neutrophils % 59.3 Lymphocytes % 31.5 Monocytes % 7.3 Eosinophils % 1.5 Basophils % 0.4 Absolute Neutrophils 5.2 Absolute Lymphocytes 2.8 Absolute Monocytes 0.6 Absolute Eosinophils 0.1 Absolute Basophils 0.0 Sodium 142.2 Potassium 4.9 Chloride 97 L Carbon Dioxide 35 H Anion Gap 10 BUN 18 Creatinine 0.88 Est GFR ( Amer) > 60 Est GFR (Non-Af Amer) > 60 Glucose 151 H Calcium 9.2 Magnesium 2.3 Total Bilirubin 0.3 AST 21 ALT 32 Alkaline Phosphatase 101 Total Protein 6.7 Albumin 3.8 11/23/18 18:35 Blood Blood Culture - Final NO GROWTH IN 5 DAYS 11/23/18 17:33 Blood Blood Culture - Final NO GROWTH IN 5 DAYS 11/25/18 13:20 Sputum AFB Smear Concentration - Final 11/25/18 13:20 Sputum Acid Fast Bacilli Smear - Final 11/24/18 11:16 Sputum AFB Smear Concentration - Final 11/24/18 11:16 Sputum Acid Fast Bacilli Smear - Final 11/23/18 11/27/18 11/27/18 17:33 23:23 23:23 Creatine Kinase 33 L CK-MB (CK-2) 0.34 Troponin I < 0.012 < 0.012 NT-Pro-B Natriuret Pep 48 11/28/18 11/28/18 11/28/18 06:11 06:11 11:35 Creatine Kinase 26 L 29 L CK-MB (CK-2) 0.32 Troponin I < 0.012 NT-Pro-B Natriuret Pep 11/28/18 11:35 Creatine Kinase CK-MB (CK-2) 0.30 Troponin I < 0.012 NT-Pro-B Natriuret Pep Impressions: Chest/Abdomen CTA 11/23/18 21:18 IMPRESSION: Negative for pulmonary embolus, thoracic aortic aneurysm, or dissection. Cavitary mass in the posterior left lung base, having a lobulated appearance as above. Surrounding ground glass opacity and reticulonodular change. There is also an adjacent pulmonary nodule in the medial left lung base. Tissue diagnosis recommended. This could reflect cavitary neoplasm. Abscess or sequelae of granulomatous disease are other possibilities. TECHNICAL DOCUMENTATION: Quality ID # [id number]: Final reports with documentation of one or more dose reduction techniques (e.g., Automated exposure control, adjustment of the mA and/or kV according to patient size, use of iterative reconstruction technique) copyright 2010 [employer]- All Rights Reserved Chest X-Ray 11/28/18 00:00 IMPRESSION: Persistent cavitary mass left posterior costophrenic sulcus. Assessment & Plan - Diagnosis (1) Pneumonia Is this a current diagnosis for this admission?: Yes Plan: 11/27/2018-patient came in with most likely community-acquired pneumonia presently on Unasyn and IV vancomycin. Patient is afebrile. Blood cultures and sputum cultures are negative. patient came in with hemoptysis most likely secondary to pneumonia. 11/28/2018-patient has community acquired pneumonia presently on Unasyn and vancomycin. Cultures are negative so far. Chest x-ray was done negative for pneumonia. 11/29/2018-patient was admitted with community-acquired pneumonia presently on Unasyn and vancomycin. Cultures are negative so far. Chest x-ray shows cavitary lesion left side. Status post bronchoscopy yesterday waiting for the bronchial aspirate culture report. Patient is afebrile. Pulse ox is 96% on 2 L. Patient is expressing desire to go home today. But I need a clearance from health care liaison before sending the patient home. (2) Cavitary lesion of lung Is this a current diagnosis for this admission?: Yes Plan: Unclear etiology: malignancy vs. infectious vs. septic emboli. Ruled out TB Work up: - Blood cultures: no growth at 48 hours - Sputum cultures pending - AFB #1-3 is negative, discontinue airborne - PPD placed on 11/24, NEGATIVE Management - ID consulted at [facility] - Continue IV Vanc and Unasyn - Pulm should do bronchoscopy on 11/27 (WILL NEED TO CONTACT ON TUESDAY), NPO after midnight - Supplemental oxygen as needed to maintain oxygen saturations greater than 90%. - As needed nebulizer treatments - Encouraged to use incentive spirometer at bedside. 11/27/2018-patient was admitted with cavitary lesion of the lung. Cavitary lesion of the left lung and enlarged hilar lymph nodes are noticed in the CTA of the chest. Pulmonary consult was done Dr. Valverde is going to do the bronchoscopy today it was confirmed by calling him. AFB's, PPD blood cultures and sputum cultures are negative so far. Patient is afebrile. On IV vancomycin and Unasyn as per ID recommendations. Pulse ox is 99% on room air. Etiology of the cavitary lesion is unknown so far. 11/28/2018-patient was admitted with left-sided cavitary lesion. In association with enlarged hilar lymph nodes. He is going for bronchoscopy today. The cultures are negative so far. AFB is negative. Patient is presently on IV vancomycin and IV Unasyn. Pulse ox is 96% on room air. Examination of the chest chest bilateral entry was decreased but no wheezing no crepitations present. Plan is to continue the present management today. 11/29/2018-patient was admitted left-sided cavitary lesion status post bronchoscopy AFP is negative. Presently on IV vancomycin and Unasyn follow-up x-rays indicating decreasing size of the cavitary lesion. Patient is afebrile. Continued to provide the present management. (3) Diabetes mellitus type 2 in nonobese Is this a current diagnosis for this admission?: Yes Plan: 11/27/2018 patient history of type 2 diabetes mellitus hemoglobin A1c E A1c is 8.6. Blood sugar is 137 today. he is on insulin sliding scale. Dietary education was done. Diet exercise weight loss and lifestyle modifications are discussed with the patient. Plan is to continue the present management today. 11/28/2018-patient has history of diabetes mellitus, hemoglobin A1c is 8.6. B lood sugar is 123 today. Presently on insulin sliding scale. Plan is to continue the present management. 11/29/2018-patient has history of type 2 diabetes mellitus, hemoglobin A1c is 8.6. His blood sugar today 151 today. Patient is presently on insulin sliding scale. Plan is to continue the present management. (4) Hypertension Qualifiers: Hypertension type: essential hypertension Qualified Code(s): I10 - Essential (primary) hypertension Is this a current diagnosis for this admission?: Yes Plan: 11/27/2018-patient blood pressure today is 101 /67. Patient is asymptomatic. Patient has history of hypertension. Patient is presently on lisinopril 20 mg p.o. daily plan is to continue the present management. 11/28/2018-blood pressure today is 101/67. Patient is on lisinopril 20 mg p.o. daily plan is to continue the present management. 11/29/2018-patient blood pressure was soft today the lisinopril was hold plan is to decrease lisinopril from 20 mg daily to 10 mg daily. Patient is on MS Contin it may be contributing to low blood pressure. (5) Bipolar disorder Is this a current diagnosis for this admission?: Yes Plan: 11/27/2018-patient has history of bipolar disorder. On Abilify 10 mg p.o. daily and Cymbalta 120 mg p.o. daily plan to continue those medications. 11/28/2018-patient has history of bipolar disorder, on Abilify 10 mg p.o. daily, Cymbalta 120 mg p.o. daily plan is to continue the present management. 11/29/2018 patient has history of bipolar disorder on Abilify and Cymbalta. Plan is to continue the present management. - Time Time Spent with patient: 15-24 minutes Anticipated discharge: Home
[2018-11-29] MEDS: INSULIN REG, HUMAN 100 UNIT/ML 3 ML VIAL (PYX) SUBCUT PRN ×3 (12:43→21:43)
[2018-11-29] MEDS: ATORVASTATIN CALCIUM 20 MG TABLET PO SCH ×2 (21:39→21:42)
[2018-11-29] MEDS: ROPINIROLE HCL 1 MG TABLET PO SCH (21:45)
[2018-11-29] MEDS: MELATONIN 5 MG TABLET PO SCH (21:45)
--- NOTE | 2018-11-29 23:42 | OPERATIVE REPORT E ---
Operative Report NAME: YOHANA TAVERAS : 1975 AGE: 43Y DATE OF SURGERY: 11/28/2018 ROOM: 301 PREOPERATIVE DIAGNOSIS: PNEUMONIA, LEFT LOWER LOBE, WITH CAVITATION. OPERATION: PERIPHERAL BRONCHOSCOPY, BRONCHOALVEOLAR LAVAGE. SURGEON: JEAN ELIZABETH M.D. ANESTHESIA: Topical using 2% lidocaine for a total dose of 13 mL. Conscious sedation using Versed total dose of 5.5 mg, and IV fentanyl total dose 75 mcg. PROCEDURE: Consent was obtained from the patient. The patient verbalized understanding of the indication, risks, and potential complications of the procedure. The patient was connected to the shellfish checker, pulse oximetry, respiratory monitor, and heart rate monitor. The patient was given 2% lidocaine solution via nebulizer 5 mL, and the Hurricaine spray x5 was applied to the oropharyngeal area; 2% lidocaine gel was applied also using cotton swab to the tonsillopharyngeal area. Versed was given in increments of 0.5 mg for a total dose of 5.5 mg. Fentanyl was given in increments of 25 mcg for a total dose 75 mcg. Next, the bronchoscope was inserted through the oropharynx. Vocal cords were *------*. Periglottic areas were visualized and appeared normal. No lesions noted. Lidocaine 1% solution in aliquots of 1 mL was applied to the bronchoscope and applied to the vocal cords, trachea, right mainstem bronchi and left mainstem bronchi and segmental bronchi on both lungs. The trachea appeared normal. The ring aperture was midline. The right mainstem bronchus appeared normal. The right upper lobe and the right middle lobe and the right lower lobe bronchi appeared normal. The left mainstem bronchus appeared normal. The left upper lobe bronchi appeared normal. No endobronchial lesions noted. The left lower lobe bronchi appeared normal. Secretions were suctioned from the right lung and left lung, and collected in one container. Secretions were also suctioned on the left lower lobe and collected in a second container. Purulent secretions were collected from the left lower lobe. Bronchoalveolar lavage was performed in the left lower lobe posterior basal segment x2. The patient tolerated the procedure well. Blood loss was none. No major postoperative complications. After the procedure, the patient complained about chest pain on the left side. EKG was performed stat, which was normal. Cardiac enzymes were performed serial x3 which were also normal, and the chest x-ray showed no pneumothorax, and stable chest findings. DICTATING PHYSICIAN: JEAN ELIZABETH M.D. [id number] Y#: [id number] ID: [id number] JOB#: [id number] ACCT: [id number] cc:JEAN ELIZABETH M.D. >
--- NOTE | 2018-11-30 00:02 | PROGRESS NOTE E ---
Progress Note NAME: YOHANA TAVERAS : 1975 AGE: 43Y DATE: ROOM: 301 SUBJECTIVE: The patient is a 43-year-old male who came in with pneumonia, left lower lobe, with large cavitation. Underwent bronchoscopy yesterday with lavage of the left lower lobe bronchi. 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 Bronchoalveolar lavage was performed in the left posterior basal segment. No bleeding noted. The patient tolerated the procedure well. However, after the procedure, the patient complained about chest pain on the left side. Chest x-ray was performed which was unremarkable. No pneumothorax. EKG was performed which showed normal EKG findings. Serial cardiac enzymes were also done which were also negative. The patient felt nauseated over last night, which improved after the patient was started on Prevacid 30 mg. The patient has been doing well in the last 24 hours. There were no adverse events during the daytime. No nausea, vomiting, diarrhea, or chest pain. OBJECTIVE: GENERAL: The patient is awake, alert and oriented x3. VITAL SIGNS: Temperature 97.5, T-max 98 degrees Fahrenheit. Heart rate 81, blood pressure 110/75, respirations 15, saturation 97% on room air. EYES: No jaundice or pallor. EARS, NOSE, AND THROAT: No ear drainage. No nasal discharge. LUNGS: No wheezing. No rhonchi. No coarse crackles. CARDIOVASCULAR: S1, S2 distinct. No murmurs present. ABDOMEN: Flabby. Positive bowel sounds. Soft, nondistended. EXTREMITIES: No clubbing, cyanosis, or edema. LABORATORY: CBC done today shows a white count of 8.8, hemoglobin 12.1, hematocrit 36.2, platelets 131. Chemistry shows sodium of 142, potassium 4.9, chloride 97, CO2 of 35, BUN 15, creatinine 0.88, glucose 151, calcium 9.2. Liver enzymes are normal. Troponin-I was normal and negative. Cytology from the bronchoalveolar lavage showed some reactive cells, inflammatory cells, and suspicious atypical cells, but nonspecific. ASSESSMENT: 1. PNEUMONIA, LEFT LOWER LOBE, WITH CAVITATION. Appeared to be improving. Recent x-ray 11/27/2018 showed improving infiltrate in the left lower lobe. Bronchial washings cultures are pending. Smears are unremarkable and negative. 2. 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 Not biopsied yesterday because of the pneumonia and cavitary lesions, and unknown infectious etiology. May be inflammatory in origin. Cannot rule out herpes virus infection. PLAN: 1. The patient may be able to go home tomorrow. Recommend continuing oral antibiotics for 7-10 days. 2. Recommend pulmonary consult in 2 to 3 weeks after hospital discharge. If you have any questions, please feel free to call me. DICTATING PHYSICIAN: JEAN ELIZABETH M.D. [id number] PHY#: [id number] ID: [id number] JOB#: [id number] ACCT: [id number] cc: >
[2018-11-30] MEDS: LANSOPRAZOLE 30 MG TAB.RAP.DR PO SCH (05:00)
[2018-11-30] MEDS: AMPICILLIN SODIUM/SULBACTAM NA 3 GM in NORMAL SALINE 100 ML IV SCH ×4 (05:01→23:12)
[2018-11-30 05:12] LABS: ABSOLUTE EOSINOPHILS # (AUTO) 0.2 10^3/uL (0.0-0.6); ABSOLUTE LYMPHOCYTES (AUTO) 3.3 10^3/uL (0.5-4.7); ABSOLUTE MONOCYTES (AUTO) 0.5 10^3/uL (0.1-1.4); ABSOLUTE NEUT (AUTO) 4.6 10^3/uL (1.7-8.2); BASOPHILS % (AUTO) 0.6 % (0-2); EOSINOPHILS % (AUTO) 2.1 % (0-6); HEMATOCRIT 35.1 % (37.9-51.0); HEMOGLOBIN 11.8 g/dL (13.5-17.0); LYMPHOCYTES % (AUTO) 38.1 % (13-45); MEAN CORPUSCULAR HEMOGLOBIN 27.3 pg (27.0-33.4); MEAN CORPUSCULAR HGB CONC 33.6 g/dL (32.0-36.0); MEAN CORPUSCULAR VOLUME 81 fl (80-97); PLATELET COUNT 399 10^3/uL (150-450); RED BLOOD COUNT 4.33 10^6/uL (4.35-5.55); RED CELL DISTRIBUTION WIDTH 13.4 % (11.5-14.0); SEGMENTED NEUTROPHILS % (AUTO) 53.2 % (42-78); TOTAL CELLS COUNTED % (AUTO) 100 %; WHITE BLOOD COUNT 8.6 10^3/uL (4.0-10.5)
[2018-11-30 05:36] LABS: ALANINE AMINOTRANSFERASE 36 U/L (21-72); ALBUMIN 3.6 g/dL (3.5-5.0); ALKALINE PHOSPHATASE 110 U/L (38-126); ANION GAP 9 (5-19); ASPARTATE AMINO TRANSFERASE 19 U/L (17-59); BILIRUBIN,DIRECT 0.3 mg/dL (0.0-0.4); BILIRUBIN,TOTAL 0.3 mg/dL (0.2-1.3); BLOOD UREA NITROGEN 17 mg/dL (7-20); CARBON DIOXIDE 32 mmol/L (22-30); CHLORIDE 98 mmol/L (98-107); GLUCOSE 247 mg/dL (75-110); POTASSIUM 4.6 mmol/L (3.6-5.0); SODIUM 139.3 mmol/L (137-145); TOTAL PROTEIN 6.4 g/dL (6.3-8.2)
[2018-11-30] MEDS: VANCOMYCIN HCL 1,500 MG in DEXTROSE 5%-WATER 250 ML IV SCH ×2 (05:58→17:47)
[2018-11-30] MEDS: INSULIN REG, HUMAN 100 UNIT/ML 3 ML VIAL (PYX) SUBCUT PRN ×4 (08:07→21:31)
[2018-11-30] MEDS: DULOXETINE HCL 30 MG CAPSULE.DR PO SCH (11:53)
[2018-11-30] MEDS: PREGABALIN 75 MG CAPSULE PO SCH ×2 (11:54→17:44)
[2018-11-30] MEDS: ARIPIPRAZOLE 5 MG TABLET PO SCH (11:54)
[2018-11-30] MEDS: LISINOPRIL 10 MG TABLET PO SCH (11:54)
[2018-11-30] MEDS: CETIRIZINE 10 MG TABLET PO SCH (11:54)
[2018-11-30] MEDS: FAMOTIDINE 20 MG TABLET PO SCH ×2 (11:55→21:27)
[2018-11-30] MEDS: MORPHINE SULFATE SR 30 MG TABLET PO SCH ×2 (11:55→21:27)
[2018-11-30] MEDS: DOCUSATE SODIUM 100 MG CAPSULE PO SCH ×2 (11:55→17:45)
--- NOTE | 2018-11-30 12:07 | RADIOLOGY REPORT (SQ) ---
EXAM DESCRIPTION: CHEST 2 VIEWS COMPLETED DATE/TIME: 11/30/2018 11:28 am REASON FOR STUDY: lt lower cavitary lesion COMPARISON: Chest films 11/23/2018, 11/27/2018, 11/28/2018 CT chest 11/23/2018 EXAM PARAMETERS: NUMBER OF VIEWS: two views TECHNIQUE: Digital Frontal and Lateral radiographic views of the chest acquired. RADIATION DOSE: NA LIMITATIONS: none FINDINGS: LUNGS AND PLEURA: Unchanged thick walled 5 cm diameter cavitary lesion in the left posteri or costophrenic sulcus. No fluffy alveolar infiltrates worrisome for pulmonary edema or pneumonia. No pleural effusion. No pneumothorax. MEDIASTINUM AND HILAR STRUCTURES: No masses or contour abnormalities. HEART AND VASCULAR STRUCTURES: Heart normal size. No evidence for failure. BONES: No acute findings. HARDWARE: None in the chest. OTHER: No other significant finding. IMPRESSION: Unchanged thick walled cavitary lesion in the left posterior costophrenic sulcus about 5 cm in diameter. TECHNICAL DOCUMENTATION: JOB ID: [id number] [employer]- All Rights Reserved Reading location - IP/workstation name: [email or web address]
[2018-11-30] MEDS: OXYCODONE HCL IR 5 MG TABLET PO PRN (17:54)
[2018-11-30 18:34] LABS: VANCOMYCIN,TROUGH 15.1 ug/mL (5.0-20.0)
--- NOTE | 2018-11-30 20:21 | PDOC PROGRESS REPORT ---
Subjective Progress Note for:: 11/30/18 Subjective:: Admission: No overnight complaints. Cough has decreased and no hemoptysis. Denies fevers, chills, CP, SOB, abdominal pain, NV. Took Restoril last night at 3am and sleepy this AM. Eating OK. No other complaints. 11/27/2018 no acute events in the last 24 hours. Afebrile. T-max is 97.7. Patient is going to be n.p.o. from 10 AM undergoing for possible bronchoscopy around 5 PM. AFB negative blood cultures are negative PPD is negative so far. Plan of care is explained to the patient and family member today. 11/28/2018-no acute events in the last 24 hours. Patient is afebrile. T-max is 97.6. Patient was supposed to go to bronchoscopy yesterday and it was postponed for today. Patient is waiting for IV access before he goes to bronchoscopy today. No complaints from the patient. Alert and awake oriented. 11/29/2018-patient has a bronchoscopy yesterday waiting for the culture reports. Patient is afebrile. Temperature 97.6. Blood pressure is slightly low this morning lisinopril was on hold. Patient is comfortably in the bed communicating very well. 11/30/18-patient denies hemoptysis in the last 24 hours. Continues to report intermittent chills. No objective fever noted. Seems patient had a lower respiratory infection approximately 3 weeks ago, the has festered until admission. He does report some improvement since being placed on antibiotics. No acute changes noted. Reason For Visit: CAVITARY MASS IN THE LEFT LUNG Physical Exam Vital Signs: Temp Pulse Resp BP Pulse Ox 97.5 F 61 16 101/59 L 94 11/30/18 19:37 11/30/18 19:37 11/30/18 19:37 11/30/18 19:37 11/30/18 19:37 Intake & Output 11/29/18 11/30/18 12/01/18 06:59 06:59 06:59 Intake Total 2305 1922 1144 Balance 2305 1922 1144 Weight 125.9 kg 126.4 kg General appearance: PRESENT: no acute distress, cooperative, other - Unkept Head exam: PRESENT: atraumatic, normocephalic Eye exam: PRESENT: conjunctiva pink, EOMI, PERRLA. ABSENT: scleral icterus Respiratory exam: PRESENT: other - No appreciable rhonchi, rales, wheeze. More difficult to auscultate in the left lower lobe. Cardiovascular exam: PRESENT: RRR, +S1, +S2 GI/Abdominal exam: PRESENT: other - Nontender, soft, nondistended, bowel sounds present. Rectal exam: PRESENT: deferred Extremities exam: PRESENT: full ROM. ABSENT: calf tenderness, clubbing, pedal edema Musculoskeletal exam: PRESENT: full ROM, normal inspection Neurological exam: PRESENT: alert, awake, oriented to person, oriented to place, oriented to time, oriented to situation, CN II-XII grossly intact. ABSENT: motor sensory deficit Psychiatric exam: PRESENT: flat affect Results Laboratory Results: 11/30/18 04:16 11/30/18 04:16 11/30/18 11/30/18 04:16 04:16 WBC 8.6 RBC 4.33 L Hgb 11.8 L Hct 35.1 L MCV 81 MCH 27.3 MCHC 33.6 RDW 13.4 Plt Count 399 Seg Neutrophils % 53.2 Lymphocytes % 38.1 Monocytes % 6.0 Eosinophils % 2.1 Basophils % 0.6 Absolute Neutrophils 4.6 Absolute Lymphocytes 3.3 Absolute Monocytes 0.5 Absolute Eosinophils 0.2 Absolute Basophils 0.0 Sodium 139.3 Potassium 4.6 Chloride 98 Carbon Dioxide 32 H Anion Gap 9 BUN 17 Creatinine 0.71 Est GFR ( Amer) > 60 Est GFR (Non-Af Amer) > 60 Glucose 247 H Calcium 9.0 Magnesium 2.1 Total Bilirubin 0.3 AST 19 ALT 36 Alkaline Phosphatase 110 Total Protein 6.4 Albumin 3.6 11/28/18 10:43 Bronchial Washings Gram Stain - Final 11/28/18 10:43 Bronchial Washings Bronchial Washings Culture - Final C.albicans/C.dubliniensis Normal Gema 11/28/18 10:43 Bronchial Washings Fungal Smear - Final 11/28/18 10:43 Bronchial Washings Fungal Smear - Final 11/28/18 10:43 Bronchial Washings AFB Smear Concentration - Final 11/28/18 10:43 Bronchial Washings Acid Fast Bacilli Smear - Final 11/23/18 11/27/18 11/27/18 17:33 23:23 23:23 Creatine Kinase 33 L CK-MB (CK-2) 0.34 Troponin I < 0.012 < 0.012 NT-Pro-B Natriuret Pep 48 11/28/18 11/28/18 11/28/18 06:11 06:11 11:35 Creatine Kinase 26 L 29 L CK-MB (CK-2) 0.32 Troponin I < 0.012 NT-Pro-B Natriuret Pep 11/28/18 11:35 Creatine Kinase CK-MB (CK-2) 0.30 Troponin I < 0.012 NT-Pro-B Natriuret Pep Impressions: Chest/Abdomen CTA 11/23/18 21:18 IMPRESSION: Negative for pulmonary embolus, thoracic aortic aneurysm, or dissection. Cavitary mass in the posterior left lung base, having a lobulated appearance as above. Surrounding ground glass opacity and reticulonodular change. There is also an adjacent pulmonary nodule in the medial left lung base. Tissue diagnosis recommended. This could reflect cavitary neoplasm. Abscess or sequelae of granulomatous disease are other possibilities. TECHNICAL DOCUMENTATION: Quality ID # [id number]: Final reports with documentation of one or more dose reduction techniques (e.g., Automated exposure control, adjustment of the mA and/or kV according to patient size, use of iterative reconstruction technique) copyright 2011 [employer]- All Rights Reserved Chest X-Ray 11/30/18 07:00 IMPRESSION: Unchanged thick walled cavitary lesion in the left posterior costophrenic sulcus about 5 cm in diameter. Assessment & Plan - Diagnosis (1) Bipolar disorder Qualifiers: Active/Remission status: remission status unspecified Qualified Code(s): F31.9 - Bipolar disorder, unspecified Is this a current diagnosis for this admission?: Yes (2) Cavitary lesion of lung Is this a current diagnosis for this admission?: Yes (3) Diabetes mellitus type 2 in nonobese Is this a current diagnosis for this admission?: Yes (4) Pneumonia Qualifiers: Lung location: unspecified part of lung Is this a current diagnosis for this admission?: Yes - Time Time Spent with patient: 15-24 minutes Medications reviewed and adjusted accordingly: Yes - Inpatient Certification Based on my medical assessment, after consideration of the patient's comorbidities, presenting symptoms, or acuity I expect that the services needed warrant INPATIENT care.: Yes I certify that my determination is in accordance with my understanding of Medicare's requirements for reasonable and necessary INPATIENT services [42 CFR 412.3e].: Yes Medical Necessity: Need for IV Antibiotics - Plan Summary Plan Summary: (1) Pneumonia Is this a current diagnosis for this admission?: Yes Plan: 11/27/2018-patient came in with most likely community-acquired pneumonia presently on Unasyn and IV vancomycin. Patient is afebrile. Blood cultures and sputum cultures are negative. patient came in with hemoptysis most likely secondary to pneumonia. 11/28/2018-patient has community acquired pneumonia presently on Unasyn and vancomycin. Cultures are negative so far. Chest x-ray was done negative for pneumonia. 11/29/2018-patient was admitted with community-acquired pneumonia presently on Unasyn and vancomycin. Cultures are negative so far. Chest x-ray shows cavitary lesion left side. Status post bronchoscopy yesterday waiting for the bronchial aspirate culture report. Patient is afebrile. Pulse ox is 96% on 2 L. Patient is expressing desire to go home today. But I need a clearance from continuous improvement black belt before sending the patient home. 11/30/18-pulmonology rec to [place] patient on oral antibiotics. Oral antibiotic selection would not be made until speaking with infectious disease. At this time will continue on IV antibiotics since he has reported some improvements. Check CBC in a.m. chest x-ray continues to show a cavitary lesion. Fungal cultures pending. No fungus on smear. (2) Cavitary lesion of lung Is this a current diagnosis for this admission?: Yes Plan: Unclear etiology: malignancy vs. infectious vs. septic emboli. Ruled out TB Work up: - Blood cultures: no growth > 48 hours - Sputum cultures pending - AFB #1-3 is negative, discontinue airborne - PPD placed on 11/24, NEGATIVE Management - ID consulted at [facility] - Continue IV Vanc and Unasyn - Pulm should do bronchoscopy on 11/27 (WILL NEED TO CONTACT ON TUESDAY), NPO after midnight - Supplemental oxygen as needed to maintain oxygen saturations greater than 90%. - As needed nebulizer treatments - Encouraged to use incentive spirometer at bedside. 11/27/2018-patient was admitted with cavitary lesion of the lung. Cavitary lesion of the left lung and enlarged hilar lymph nodes are noticed in the CTA of the chest. Pulmonary consult was done Dr. Valverde is going to do the bronchosc opy today it was confirmed by calling him. AFB's, PPD blood cultures and sputum cultures are negative so far. Patient is afebrile. On IV vancomycin and Unasyn as per ID recommendations. Pulse ox is 99% on room air. Etiology of the cavitary lesion is unknown so far. 11/28/2018-patient was admitted with left-sided cavitary lesion. In association with enlarged hilar lymph nodes. He is going for bronchoscopy today. The cultures are negative so far. AFB is negative. Patient is presently on IV vancomycin and IV Unasyn. Pulse ox is 96% on room air. Examination of the chest chest bilateral entry was decreased but no wheezing no crepitations present. Plan is to continue the present management today. 11/29/2018-patient was admitted left-sided cavitary lesion status post bronchoscopy AFP is negative. Presently on IV vancomycin and Unasyn follow-up x-rays indicating decreasing size of the cavitary lesion. Patient is afebrile. Continued to provide the present management. 11/30/18 acid-fast remains negative. Results could take upwards of 45 days, though would expect quicker results in an active infection. Check QuantiFERON TB Gold plus test. Will discuss case with infectious disease tomorrow. Repeat chest x-ray showed 5 cm lesion some concern for malignancy and should be ev aluated on discharge. Need to further confirm the patient does not have TB prior to discharge. (3) Diabetes mellitus type 2 in nonobese Is this a current diagnosis for this admission?: Yes Plan: 11/27/2018 patient history of type 2 diabetes mellitus hemoglobin A1c E A1c is 8.6. Blood sugar is 137 today. he is on insulin sliding scale. Dietary education was done. Diet exercise weight loss and lifestyle modifications are discussed with the patient. Plan is to continue the present management today. 11/28/2018-patient has history of diabetes mellitus, hemoglobin A1c is 8.6. Blood sugar is 123 today. Presently on insulin sliding scale. Plan is to continue the present management. 11/29/2018-patient has history of type 2 diabetes mellitus, hemoglobin A1c is 8.6. His blood sugar today 151 today. Patient is presently on insulin sliding scale. Plan is to continue the present management. 11/30/18-difficult to control. Blood sugar has a wide range. He reports it being this way since having gastric bypass surgery approximately 1 year ago. We will not alter medications at this time due to risk of hypoglycemia. Monitor closely (4) Hypertension Qualifiers: Hypertension type: essential hypertension Qualified Code(s): I10 - Essential (primary) hypertension Is this a current diagnosis for this admission?: Yes Plan: 11/27/2018-patient blood pressure today is 101 /67. Patient is asymptomatic. Patient has history of hypertension. Patient is presently on lisinopril 20 mg p.o. daily plan is to continue the present management. 11/28/2018-blood pressure today is 101/67. Patient is on lisinopril 20 mg p.o. daily plan is to continue the present management. 11/29/2018-patient blood pressure was soft today the lisinopril was hold plan is to decrease lisinopril from 20 mg daily to 10 mg daily. Patient is on MS Contin it may be contributing to low blood pressure. 11/30/18 continue to hold blood pressure medications and monitor closely. Blood pressure on the lower end of normal today. Blood pressure medications should be held with systolic lower than 100 or diastolic lower than 60. (5) Bipolar disorder Is this a current diagnosis for this admission?: Yes Plan: 11/27/2018-patient has history of bipolar disorder. On Abilify 10 mg p.o. daily and Cymbalta 120 mg p.o. daily plan to continue those medications. 11/28/2018-patient has history of bipolar disorder, on Abilify 10 mg p.o. daily, Cymbalta 120 mg p.o. daily plan is to continue the present management. 11/29/2018 patient has history of bipolar disorder on Abilify and Cymbalta. Plan is to continue the present management. 11/30/18 continue with current management. No acute issues at this time.
[2018-11-30] MEDS: MELATONIN 5 MG TABLET PO SCH (21:27)
[2018-11-30] MEDS: ROPINIROLE HCL 1 MG TABLET PO SCH (21:27)
[2018-11-30] MEDS: ATORVASTATIN CALCIUM 20 MG TABLET PO SCH ×2 (21:27)
[2018-12-01] MEDS: OXYCODONE HCL IR 5 MG TABLET PO PRN (03:33)
[2018-12-01 04:57] LABS: ABSOLUTE BASOPHILS # (AUTO) 0.1 10^3/uL (0.0-0.2); ABSOLUTE EOSINOPHILS # (AUTO) 0.2 10^3/uL (0.0-0.6); ABSOLUTE LYMPHOCYTES (AUTO) 3.6 10^3/uL (0.5-4.7); ABSOLUTE MONOCYTES (AUTO) 0.6 10^3/uL (0.1-1.4); ABSOLUTE NEUT (AUTO) 5.1 10^3/uL (1.7-8.2); BASOPHILS % (AUTO) 0.5 % (0-2); EOSINOPHILS % (AUTO) 1.8 % (0-6); HEMATOCRIT 34.9 % (37.9-51.0); HEMOGLOBIN 11.7 g/dL (13.5-17.0); LYMPHOCYTES % (AUTO) 38.1 % (13-45); MEAN CORPUSCULAR HEMOGLOBIN 27.4 pg (27.0-33.4); MEAN CORPUSCULAR HGB CONC 33.6 g/dL (32.0-36.0); MEAN CORPUSCULAR VOLUME 82 fl (80-97); MONOCYTES % (AUTO) 6.2 % (3-13); PLATELET COUNT 394 10^3/uL (150-450); RED BLOOD COUNT 4.27 10^6/uL (4.35-5.55); SEGMENTED NEUTROPHILS % (AUTO) 53.4 % (42-78); TOTAL CELLS COUNTED % (AUTO) 100 %; WHITE BLOOD COUNT 9.5 10^3/uL (4.0-10.5)
[2018-12-01 05:13] LABS: ALANINE AMINOTRANSFERASE 37 U/L (21-72); ALBUMIN 3.7 g/dL (3.5-5.0); ALKALINE PHOSPHATASE 100 U/L (38-126); ANION GAP 11 (5-19); ASPARTATE AMINO TRANSFERASE 25 U/L (17-59); BILIRUBIN,DIRECT 0.2 mg/dL (0.0-0.4); BILIRUBIN,TOTAL 0.3 mg/dL (0.2-1.3); BLOOD UREA NITROGEN 16 mg/dL (7-20); CALCIUM 9.2 mg/dL (8.4-10.2); CARBON DIOXIDE 31 mmol/L (22-30); CHLORIDE 98 mmol/L (98-107); GLUCOSE 184 mg/dL (75-110); POTASSIUM 4.6 mmol/L (3.6-5.0); SODIUM 139.5 mmol/L (137-145); TOTAL PROTEIN 6.5 g/dL (6.3-8.2)
[2018-12-01] MEDS: LANSOPRAZOLE 30 MG TAB.RAP.DR PO SCH (05:13)
[2018-12-01] MEDS: AMPICILLIN SODIUM/SULBACTAM NA 3 GM in NORMAL SALINE 100 ML IV SCH ×2 (05:13→12:04)
[2018-12-01] MEDS: VANCOMYCIN HCL 1,500 MG in DEXTROSE 5%-WATER 250 ML IV SCH (06:17)
[2018-12-01] MEDS: INSULIN REG, HUMAN 100 UNIT/ML 3 ML VIAL (PYX) SUBCUT PRN ×4 (08:04→21:09)
--- NOTE | 2018-12-01 09:51 | RADIOLOGY REPORT (SQ) ---
EXAM DESCRIPTION: CHEST 2 VIEWS COMPLETED DATE/TIME: 12/01/2018 9:23 am REASON FOR STUDY: f/u cavitary lesions COMPARISON: 11/30/2018 EXAM PARAMETERS: NUMBER OF VIEWS: two views TECHNIQUE: Digital Frontal and Lateral radiographic views of the chest acquired. RADIATION DOSE: NA LIMITATIONS: none FINDINGS: LUNGS AND PLEURA: Cavitary lesion in the posterior aspect of the left base is less apparen t on today's study. Lung hickey are otherwise clear. No pneumothorax. MEDIASTINUM AND HILAR STRUCTURES: No masses or contour abnormalities. HEART AND VASCULAR STRUCTURES: Heart normal size. No evidence for failure. BONES: No acute findings. HARDWARE: None in the chest. OTHER: No other significant finding. IMPRESSION: Improvement in the left basilar opacity as discussed. No new findings. TECHNICAL DOCUMENTATION: JOB ID: [id number] [employer]- All Rights Reserved Reading location - IP/workstation name: [email or web address]
[2018-12-01] MEDS: LISINOPRIL 10 MG TABLET PO SCH (10:15)
[2018-12-01] MEDS: DULOXETINE HCL 30 MG CAPSULE.DR PO SCH (10:15)
[2018-12-01] MEDS: PREGABALIN 75 MG CAPSULE PO SCH ×2 (10:15→17:05)
[2018-12-01] MEDS: FAMOTIDINE 20 MG TABLET PO SCH ×2 (10:15→21:05)
[2018-12-01] MEDS: DOCUSATE SODIUM 100 MG CAPSULE PO SCH ×2 (10:16→17:06)
[2018-12-01] MEDS: ARIPIPRAZOLE 5 MG TABLET PO SCH (10:16)
[2018-12-01] MEDS: CETIRIZINE 10 MG TABLET PO SCH (10:16)
[2018-12-01] MEDS: MORPHINE SULFATE SR 30 MG TABLET PO SCH (10:18)
--- NOTE | 2018-12-01 16:10 | PDOC PROGRESS REPORT ---
Subjective Progress Note for:: 12/01/18 Subjective:: Admission: No overnight complaints. Cough has decreased and no hemoptysis. Denies fevers, chills, CP, SOB, abdominal pain, NV. Took Restoril last night at 3am and sleepy this AM. Eating OK. No other complaints. 11/27/2018 no acute events in the last 24 hours. Afebrile. T-max is 97.7. Patient is going to be n.p.o. from 10 AM undergoing for possible bronchoscopy around 5 PM. AFB negative blood cultures are negative PPD is negative so far. Plan of care is explained to the patient and family member today. 11/28/2018-no acute events in the last 24 hours. Patient is afebrile. T-max is 97.6. Patient was supposed to go to bronchoscopy yesterday and it was postponed for today. Patient is waiting for IV access before he goes to bronchoscopy today. No complaints from the patient. Alert and awake oriented. 11/29/2018-patient has a bronchoscopy yesterday waiting for the culture reports. Patient is afebrile. Temperature 97.6. Blood pressure is slightly low this morning lisinopril was on hold. Patient is comfortably in the bed communicating very well. 11/30/18-patient denies hemoptysis in the last 24 hours. Continues to report intermittent chills. No objective fever noted. Seems patient had a lower respiratory infection approximately 3 weeks ago, the has festered until admission. He does report some improvement since being placed on antibiotics. No acute changes noted. 12/01/18-patient continues to report overall improvement, however still does not feel his breathing is at baseline. He reports less coughing and production of sputum. Denies hemoptysis in the last 48 hours. No reports of fever or chills in the last 24 hours. Patient does confirm that he his mom was diagnosed and treated of TB when he was 4 years old. 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 He denies IV drug use. He denies a significant smoking history, however does admit to smoking for approximately 5 years. He smoked 1 pack/day. He quit around 2000. Denies working in occupation in [employer]/hazardous environments. Reason For Visit: CAVITARY MASS IN THE LEFT LUNG Physical Exam Vital Signs: Temp Pulse Resp BP Pulse Ox 97.7 F 61 19 104/52 L 96 12/01/18 08:38 12/01/18 13:55 12/01/18 08:38 12/01/18 08:38 12/01/18 08:38 Intake & Output 11/30/18 12/01/18 12/02/18 06:59 06:59 06:59 Intake Total 1921 1344 Balance 1921 1344 Weight 126.4 kg 127.7 kg General appearance: PRESENT: no acute distress, cooperative, well-developed, well-nourished, other - unKept. Head exam: PRESENT: atraumatic, normocephalic Eye exam: PRESENT: PERRLA Ear exam: PRESENT: normal external ear exam Mouth exam: PRESENT: moist, tongue midline Respiratory exam: PRESENT: other - No appreciable wheeze, rales, rhonchi in right lung. No appreciable wheeze, crackles in left lung. Area with decreased movement of air in left lung, but no rhonchi appreciated. Cardiovascular exam: PRESENT: RRR, +S1, +S2 Pulses: PRESENT: normal dorsalis pedis pul Vascular exam: PRESENT: normal capillary refill GI/Abdominal exam: PRESENT: normal bowel sounds, soft. ABSENT: distended, guarding, mass, organolmegaly, rebound, tenderness Rectal exam: PRESENT: deferred Neurological exam: PRESENT: alert, awake, oriented to person, oriented to place, oriented to time, oriented to situation, CN II-XII grossly intact. ABSENT: motor sensory deficit Psychiatric exam: PRESENT: flat affect Results Laboratory Results: 12/01/18 04:39 12/01/18 04:39 12/01/18 12/01/18 04:39 04:39 WBC 9.5 RBC 4.27 L Hgb 11.7 L Hct 34.9 L MCV 82 MCH 27.4 MCHC 33.6 RDW 13.0 Plt Count 394 Seg Neutrophils % 53.4 Lymphocytes % 38.1 Monocytes % 6.2 Eosinophils % 1.8 Basophils % 0.5 Absolute Neutrophils 5.1 Absolute Lymphocytes 3.6 Absolute Monocytes 0.6 Absolute Eosinophils 0.2 Absolute Basophils 0.1 Sodium 139.5 Potassium 4.6 Chloride 98 Carbon Dioxide 31 H Anion Gap 11 BUN 16 Creatinine 0.79 Est GFR ( Amer) > 60 Est GFR (Non-Af Amer) > 60 Glucose 184 H Calcium 9.2 Total Bilirubin 0.3 AST 25 ALT 37 Alkaline Phosphatase 100 Total Protein 6.5 Albumin 3.7 11/28/18 10:43 Bronchial Washings Gram Stain - Final 11/28/18 10:43 Bronchial Washings Bronchial Washings Culture - Final C.albicans/C.dubliniensis Normal Gema 11/28/18 10:43 Bronchial Washings Fungal Smear - Final 11/28/18 10:43 Bronchial Washings Fungal Smear - Final 11/28/18 10:43 Bronchial Washings AFB Smear Concentration - Final 11/28/18 10:43 Bronchial Washings Acid Fast Bacilli Smear - Final 11/23/18 11/27/18 11/27/18 17:33 23:23 23:23 Creatine Kinase 33 L CK-MB (CK-2) 0.34 Troponin I < 0.012 < 0.012 NT-Pro-B Natriuret Pep 48 11/28/18 11/28/18 11/28/18 06:11 06:11 11:35 Creatine Kinase 26 L 29 L CK-MB (CK-2) 0.32 Troponin I < 0.012 NT-Pro-B Natriuret Pep 11/28/18 11:35 Creatine Kinase CK-MB (CK-2) 0.30 Troponin I < 0.012 NT-Pro-B Natriuret Pep Impressions: Chest/Abdomen CTA 11/23/18 21:18 IMPRESSION: Negative for pulmonary embolus, thoracic aortic aneurysm, or dissection. Cavitary mass in the posterior left lung base, having a lobulated appearance as above. Surrounding ground glass opacity and reticulonodular change. There is also an adjacent pulmonary nodule in the medial left lung base. Tissue diagnosis recommended. This could reflect cavitary neoplasm. Abscess or sequelae of granulomatous disease are other possibilities. TECHNICAL DOCUMENTATION: Quality ID # [id number]: Final reports with documentation of one or more dose reduction techniques (e.g., Automated exposure control, adjustment of the mA and/or kV according to patient size, use of iterative reconstruction technique) copyright 2011 [employer]- All Rights Reserved Chest X-Ray 12/01/18 00:00 IMPRESSION: Improvement in the left basilar opacity as discussed. No new findings. Assessment & Plan - Diagnosis (1) Bipolar disorder Qualifiers: Active/Remission status: remission status unspecified Qualified Code(s): F31.9 - Bipolar disorder, unspecified Is this a current diagnosis for this admission?: Yes (2) Cavitary lesion of lung Is this a current diagnosis for this admission?: Yes (3) Diabetes mellitus type 2 in nonobese Is this a current diagnosis for this admission?: Yes (4) Pneumonia Qualifiers: Lung location: unspecified part of lung Is this a current diagnosis for this admission?: Yes - Time Time Spent with patient: 15-24 minutes Medications reviewed and adjusted accordingly: Yes - Inpatient Certification Based on my medical assessment, after consideration of the patient's comorbidities, presenting symptoms, or acuity I expect that the services needed warrant INPATIENT care.: Yes I certify that my determination is in accordance with my understanding of Medicare's requirements for reasonable and necessary INPATIENT services [42 CFR 412.3e].: Yes Medical Necessity: Need for IV Antibiotics - Plan Summary Plan Summary: (1) Pneumonia Is this a current diagnosis for this admission?: Yes Plan: 11/27/2018-patient came in with most likely community-acquired pneumonia presently on Unasyn and IV vancomycin. Patient is afebrile. Blood cultures and sputum cultures are negative. patient came in with hemoptysis most likely secondary to pneumonia. 11/28/2018-patient has community acquired pneumonia presently on Unasyn and vancomycin. Cultures are negative so far. Chest x-ray was done negative for pneumonia. 11/29/2018-patient was admitted with community-acquired pneumonia presently on Unasyn and vancomycin. Cultures are negative so far. Chest x-ray shows cavitary lesion left side. Status post bronchoscopy yesterday waiting for the b ronchial aspirate culture report. Patient is afebrile. Pulse ox is 96% on 2 L. Patient is expressing desire to go home today. But I need a clearance from mathematics teacher before sending the patient home. 11/30/18-pulmonology rec to DC patient on oral antibiotics. Oral antibiotic selection would not be made until speaking with infectious disease. At this time will continue on IV antibiotics since he has reported some improvements. Check CBC in a.m. chest x-ray continues to show a cavitary lesion. Fungal cultures pending. No fungus on smear. 12/01/18-continues to be on Unasyn and vancomycin. Continue with supportive therapy. We have again reached out to infectious disease for assistance and this case. Since he continues to be improving, we will wait until ID has a chance to make recommendations before altering current plan (2) Cavitary lesion of lung Is this a current diagnosis for this admission?: Yes Plan: Unclear etiology: malignancy vs. infectious vs. septic emboli. Ruled out TB Work up: - Blood cultures: no growth > 48 hours - Sputum cultures pending - AFB #1-3 is negative, discontinue airborne - PPD placed on 11/24, NEGATIVE Management - ID consulted at [facility] - Continue IV Vanc and Unasyn - Pulm should do bronchoscopy on 11/27 (WILL NEED TO CONTACT ON TUESDAY), NPO after midnight - Supplemental oxygen as needed to maintain oxygen saturations greater than 90%. - As needed nebulizer treatments - Encouraged to use incentive spirometer at bedside. 11/27/2018-patient was admitted with cavitary lesion of the lung. Cavitary lesion of the left lung and enlarged hilar lymph nodes are noticed in the CTA of the chest. Pulmonary consult was done Dr. Valverde is going to do the bronchoscopy today it was confirmed by calling him. AFB's, PPD blood cultures and sputum cultures are negative so far. Patient is afebrile. On IV vancomycin and Unasyn as per ID recommendations. Pulse ox is 99% on room air. Etiology of the cavitary lesion is unknown so far. 11/28/2018-patient was admitted with left-sided cavitary lesion. In association with enlarged hilar lymph nodes. He is going for bronchoscopy today. The cultures are negative so far. AFB is negative. Patient is presently on IV vancomycin and IV Unasyn. Pulse ox is 96% on room air. Examination of the chest chest bilateral entry was decreased but no wheezing no crepitations present. Plan is to continue the present management today. 11/29/2018-patient was admitted left-sided cavitary lesion status post bronchoscopy AFP is negative. Presently on IV vancomycin and Unasyn follow-up x-rays indicating decreasing size of the cavitary lesion. Patient is afebrile. Continued to provide the present management. 11/30/18 acid-fast remains negative. Results could take upwards of 45 days, though would expect quicker results in an active infection. Check QuantiFERON TB Gold plus test. Will discuss case with infectious disease tomorrow. Repeat chest x-ray showed 5 cm lesion some concern for malignancy and should be evaluated on discharge. Need to further confirm the patient does not have TB prior to discharge. 12/01/18-fungal cultures continue to be negative. Acid-fast bacilli cultures continue to be negative. Today's chest x-ray showed improvement in the left basilar opacity. Size not mentioned. Bronchial washing cytology reports are below. We have reached out to infectious disease to get their input. We will continue with current IV antibiotic regimen until instructed otherwise. We will continue to monitor the lesion on a daily chest x-ray. Bronchial washing cytology reports: (left lung)-atypical cells seen. Acute inflammation, macrophages, reactive bronchial cells, and mucus noted. There are small groups of atypical cells that are partially obscured by inflammation. The differential diagnosis includes r eactive bronchial cells and a neoplastic process. A biopsy is recommended after the resolution of inflammation for definitive diagnosis. (Bilateral) no cells diagnostic of malignancy are seen. Acute inflammation, macrophages, benign bronchial and numerous squamous cells with bacteria noted. (Left lower posterior lobe) no cells diagnostic of malignancy are seen. Acute inflammation, macrophages, reactive bronchial cells and squamous cells noted. (3) Diabetes mellitus type 2 in nonobese Is this a current diagnosis for this admission?: Yes Plan: 11/27/2018 patient history of type 2 diabetes mellitus hemoglobin A1c E A1c is 8.6. Blood sugar is 137 today. he is on insulin sliding scale. Dietary education was done. Diet exercise weight loss and lifestyle modifications are discussed with the patient. Plan is to continue the present management today. 11/28/2018-patient has history of diabetes mellitus, hemoglobin A1c is 8.6. Blood sugar is 123 today. Presently on insulin sliding scale. Plan is to continue the present management. 11/29/2018-patient has history of type 2 diabetes mellitus, hemoglobin A1c is 8.6. His blood sugar today 151 today. Patient is presently on insulin sliding scale. Plan is to continue the present management. 11/30/18-difficult to control. Blood sugar has a wide range. He reports it being this way since having gastric bypass surgery approximately 1 year ago. We will not alter medications at this time due to risk of hypoglycemia. Monitor closely 12/01/18-last 2 blood glucose levels have been 171 and 211. Still hesitant to alter medications due to the unpredictability of the glucose level post gastric bypass surgery. (4) Hypertension Qualifiers: Hypertension type: essential hypertension Qualified Code(s): I10 - Essential (primary) hypertension Is this a current diagnosis for this admission?: Yes Plan: 11/27/2018-patient blood pressure today is 101 /67. Patient is asymptomatic. Patient has history of hypertension. Patient is presently on lisinopril 20 mg p.o. daily plan is to continue the present management. 11/28/2018-blood pressure today is 101/67. Patient is on lisinopril 20 mg p.o. daily plan is to continue the present management. 11/29/2018-patient blood pressure was soft today the lisinopril was hold plan is to decrease lisinopril from 20 mg daily to 10 mg daily. Patient is on MS Contin it may be contributing to low blood pressure. 11/30/18 continue to hold blood pressure medications and monitor closely. Blood pressure on the lower end of normal today. Blood pressure medications should be held with systolic lower than 100 or diastolic lower than 60. 12/01/18-blood pressure continues to be well controlled. Last blood pressure 104/52. Continues to be on lisinopril 10 mg p.o. daily. He has as needed medications ordered from on admission. (5) Bipolar disorder Is this a current diagnosis for this admission?: Yes Plan: 11/27/2018-patient has history of bipolar disorder. On Abilify 10 mg p.o. daily and Cymbalta 120 mg p.o. daily plan to continue those medications. 11/28/2018-patient has history of bipolar disorder, on Abilify 10 mg p.o. daily, Cymbalta 120 mg p.o. daily plan is to continue the present management. 11/29/2018 patient has history of bipolar disorder on Abilify and Cymbalta. Plan is to continue the present management. 11/30/18 continue with current management. No acute issues at this time. 12/01/18-no current issues. Continue with current management. Disposition: Plan to discuss case with infectious disease again and get their input on antibiotic selection. Patient can be placed on oral antibiotics then we will discharge him in the near future. Until that time we will continue on the course we are on since patient continues to improve. Continue to monitor the lesion. Recommend follow-up with pulmonology on discharge and have a biopsy.
--- NOTE | 2018-12-01 16:17 | Progress Note ---
Provider Note Provider Note: Discussion had with infectious disease physician from [facility]. Recommendations based off the evidence would be to switch the patient over to oral Augmentin 500-125 3 times daily and continue that course until he has a chance to follow-up with pulmonology. At that time he can be reevaluated, consider the need for reimaging, and biopsy. If augmentin is not tolerated amoxicillin could be an alternative. Today's chest x-ray showed the first signs of improvement. Stop IV antibiotics now. Change to oral antibiotics. And move forward with a possible discharge tomorrow. Input from ID is much appreciated.
--- NOTE | 2018-12-01 16:43 | Progress Note ---
Provider Note Provider Note: ID Consult Note Asked to review patient's chart by Matt Sims NP. Pt not seen or examined. Mr. Hodges chester 43 year old man with obesity, pseudoseizures, HTN, depression, chronic back pain on opiates, and bipolar d/o who p/w 3-4 weeks of fatigue, sweats, RICHARDSON and increasing cough. He was found to have a L lower lobe thick walled cavitary lung lesion 6.5 x 2 x 4.2 cm. His UDS was positive for benzodiazepines and opiates. His HIV test was negative. Blood cultures are negative. His PPD was negative. Four AFB smears have been negative. Sputum grew normal nick and a colony of group F Strep (Streptococcus milleri or anginosus group Strep, which are well known colonists of the oropharynx and potential causes of pyogenic infections). Bronchoscopy was performed on 11/28/18 and purulent secretions were collected from the left lower lobe; BAL was performed and bacterial cultures from that yielded normal nick and C. albicans/dublinensis. AFB and fungal cultures are pending. Repeat CXR on 12/01 showed improvement in L basilar opacity. Pt also report feeling like he had some improvement since antibiotics were started. He has been on Unasyn. He is planned to have follow up with Dr Valverde in 2-3 weeks of discharge. Impression/Recommendations - This appears to be a bacterial lung abscess, most likely due to oropharyngeal nick from aspiration, based on culture results and patient having some risk factors for decreased level of consciousness (benzodiazepines, opiates). TB not likely given negative PPD, multiple negative AFB smears, atypical appearance for reactivation TB. - Can transition to PO Augmentin 500/125 mg TID. Duration of therapy needs to be individualized. Lung abscess typically requires anywhere from 3-4 weeks to possibly up to as long as 14 weeks, depending in part on the size of the lesion. Would treat to endpoint of resolution on CXR or small stable residual lesion. Can discharge with 3 weeks of PO Augmentin with further therapy given based on response at follow up. Kushal Samuel MD [facility] Infectious Diseases pager [phone]
[2018-12-01] MEDS: AMOXICILLIN TR/POT CLAVULANATE 500-125 MG TAB PO SCH (21:05)
[2018-12-01] MEDS: MELATONIN 5 MG TABLET PO SCH (21:05)
[2018-12-01] MEDS: ROPINIROLE HCL 1 MG TABLET PO SCH (21:05)
[2018-12-01] MEDS: ATORVASTATIN CALCIUM 20 MG TABLET PO SCH (21:05)
[2018-12-02] MEDS ORDERED: OXYCODONE HCL IR 5 MG TABLET PO PRN (02:09)
[2018-12-02] MEDS ORDERED: MORPHINE SULFATE SR 30 MG TABLET PO ONE (02:15)
[2018-12-02 05:03] LABS: ABSOLUTE BASOPHILS # (AUTO) 0.1 10^3/uL (0.0-0.2); ABSOLUTE EOSINOPHILS # (AUTO) 0.2 10^3/uL (0.0-0.6); ABSOLUTE LYMPHOCYTES (AUTO) 3.1 10^3/uL (0.5-4.7); ABSOLUTE MONOCYTES (AUTO) 0.6 10^3/uL (0.1-1.4); ABSOLUTE NEUT (AUTO) 6.2 10^3/uL (1.7-8.2); BASOPHILS % (AUTO) 0.5 % (0-2); EOSINOPHILS % (AUTO) 1.8 % (0-6); HEMATOCRIT 36.9 % (37.9-51.0); HEMOGLOBIN 12.4 g/dL (13.5-17.0); LYMPHOCYTES % (AUTO) 30.6 % (13-45); MEAN CORPUSCULAR HEMOGLOBIN 27.3 pg (27.0-33.4); MEAN CORPUSCULAR HGB CONC 33.5 g/dL (32.0-36.0); MEAN CORPUSCULAR VOLUME 81 fl (80-97); MONOCYTES % (AUTO) 5.8 % (3-13); PLATELET COUNT 416 10^3/uL (150-450); RED BLOOD COUNT 4.53 10^6/uL (4.35-5.55); RED CELL DISTRIBUTION WIDTH 13.4 % (11.5-14.0); SEGMENTED NEUTROPHILS % (AUTO) 61.3 % (42-78); TOTAL CELLS COUNTED % (AUTO) 100 %
[2018-12-02] MEDS: LANSOPRAZOLE 30 MG TAB.RAP.DR PO SCH (05:32)
[2018-12-02] MEDS: AMOXICILLIN TR/POT CLAVULANATE 500-125 MG TAB PO SCH (05:32)
[2018-12-02 05:35] LABS: ANION GAP 10 (5-19); BLOOD UREA NITROGEN 19 mg/dL (7-20); CALCIUM 9.5 mg/dL (8.4-10.2); CARBON DIOXIDE 30 mmol/L (22-30); CHLORIDE 98 mmol/L (98-107); GLUCOSE 212 mg/dL (75-110); POTASSIUM 5.5 mmol/L (3.6-5.0); SODIUM 137.9 mmol/L (137-145)
[2018-12-02 07:51] VITALS: BP 111/64
[2018-12-02] MEDS: INSULIN REG, HUMAN 100 UNIT/ML 3 ML VIAL (PYX) SUBCUT PRN (08:36)
[2018-12-02] MEDS: ARIPIPRAZOLE 5 MG TABLET PO SCH (09:37)
[2018-12-02] MEDS: PREGABALIN 75 MG CAPSULE PO SCH (09:37)
[2018-12-02] MEDS: DULOXETINE HCL 30 MG CAPSULE.DR PO SCH (09:37)
[2018-12-02] MEDS: DOCUSATE SODIUM 100 MG CAPSULE PO SCH (09:38)
[2018-12-02] MEDS: FAMOTIDINE 20 MG TABLET PO SCH (09:38)
[2018-12-02] MEDS: LISINOPRIL 10 MG TABLET PO SCH (09:38)
[2018-12-02] MEDS: CETIRIZINE 10 MG TABLET PO SCH (09:38)
--- NOTE | 2018-12-02 09:39 | PDOC DISCHARGE SUMMARY ---
General - Admit/Disc Date/PCP Admission Date/Primary Care Provider: 11/23/18 22:54 JIHAN ARNOLDO, DPJaxon Discharge Date: 12/02/18 - Discharge Diagnosis (1) Abscess of left lung without pneumonia Is this a current diagnosis for this admission?: Yes - Additional Information Resuscitation Status: Full Code Discharge Diet: Cardiac, Diabetic Discharge Activity: Balance Activity w/Rest, Slowly Increase Activity Prescriptions: Amox Tr/Potassium Clavulanate [Augmentin "500" Tablet] 1 tab PO Q8 21 Days #63 tablet NS Home Medications: Aripiprazole [Abilify 10 mg Tablet] 10 mg PO DAILY 11/24/18 Atorvastatin Calcium [Lipitor 20 mg Tablet] 20 mg PO QHS 11/24/18 Celecoxib [Celebrex 200 mg Capsule] 200 mg PO BIDP PRN 11/24/18 Cetirizine HCl [Zyrtec 10 mg Tablet] 1 tab PO DAILY 11/24/18 Duloxetine HCl [Cymbalta] 120 mg PO DAILY 11/24/18 Empagliflozin [Jardiance] 25 mg PO DAILY 11/24/18 Lisinopril [Prinivil] 20 mg PO DAILY 11/24/18 Metformin HCl [Metformin HCl ER] 1,000 mg PO BIDBS 11/24/18 Morphine Sulfate [Ms Contin] 30 mg PO Q12 11/24/18 Oxycodone HCl 15 mg PO Q6HP PRN 11/24/18 Pregabalin [Lyrica] 225 mg PO BIDP PRN 11/24/18 Ropinirole HCl [Requip] 1 mg PO QHS 11/24/18 Sitagliptin Phosphate [Januvia] 100 mg PO DAILY 11/24/18 Temazepam [Restoril] 30 mg PO HSP PRN 11/24/18 Amox Tr/Potassium Clavulanate [Augmentin "500" Tablet] 1 tab PO Q8 21 Days #63 tablet NS 12/02/18 History of Present Illness History of Present Illness: YOHANA TAVERAS is a 43 year old man who presented to the emergency room with a o ne-week history of mild hemoptysis. His hemoptysis has increased slightly since its onset a week ago but remains mild with only a small amount of blood produced with his coughing episodes. The cough has increased slightly in frequency over the last 2-3 days as has the amount of blood present in his sputum. Additionally he admits a 3-4 week history of persistent fatigue, generalized malaise, night sweats and progressively worsening dyspnea on exertion. He also acknowledges that he has a history of exposure to tuberculosis. He denies similar prior episodes and has not found any aggravating or ameliorating factors for his current symptoms. In the emergency room he was noted to have a cavitary mass/lesion present in the left lower lung and was admitted after consultation with the on-call planning specialist who agreed to see the patient in assisted management here at [facility]. Hospital Course Hospital Course: 43 year old man came in with hemoptysis. initially treated for PNA. ID was consulted due to cavitary lesion seen on imaging. He was found to have a L lower lobe thick walled cavitary lung lesion 6.5 x 2 x 4.2 cm. His UDS was positive for benzodiazepines and opiates. His HIV test was negative. Blood cultures are negative. His PPD was negative. Four AFB smears have been negative. Sputum grew normal nick and a colony of group F Strep (Streptococcus milleri or anginosus group Strep, which are well known colonists of the oropharynx and potential causes of pyogenic infections). Bronchoscopy was performed on 11/28/18 and purulent secretions were collected from the left lower lobe; BAL was performed and bacterial cultures from that yielded normal nick and C. albicans/dublinensis. AFB and fungal cultures are pending. Repeat CXR on 12/01 showed improvement in L basilar opacity. Pt also report feeling like he had some improvement since antibiotics were started. He has been on Unasyn. He is planned to have follow up with Dr Valverde in 2-3 weeks of discharge. Pt feeling considerably better on augmentin. He will be dced today to home with 3 weeks of augmentin, ID follow up in 2 weeks and PCP appt within one week. Home meds have been restarted except lisinopril, his BP here has been low, he has been on 10 (1/2 his home dose) mg and I recommended to him today that he hold his lisinopril, check BP several times a day and call his PCP if BP starts to elevated. He is medical stable, overall much improved, eating and drinking well. ambulating safely in hallway. to pick him up. States his questions are answered to his satisfaction. Physical Exam Vital Signs: Temp Pulse Resp BP Pulse Ox 98.4 F 72 12 111/64 95 12/02/18 07:19 12/02/18 07:19 12/02/18 07:19 12/02/18 07:19 12/02/18 07:19 Intake & Output 12/01/18 12/02/18 12/03/18 06:59 06:59 06:59 Intake Total 1344 1001 Balance 1344 1001 Weight 127.7 kg 127.1 kg General appearance: PRESENT: no acute distress, cooperative, obese Head exam: PRESENT: atraumatic, normocephalic Eye exam: PRESENT: EOMI. ABSENT: conjunctival injection, periorbital swelling, scleral icterus Mouth exam: PRESENT: moist, neck supple Respiratory exam: PRESENT: rhonchi, unlabored. ABSENT: accessory muscle use, rales, wheezes Cardiovascular exam: PRESENT: RRR. ABSENT: systolic murmur Pulses: PRESENT: normal radial pulses GI/Abdominal exam: PRESENT: normal bowel sounds, soft. ABSENT: ascites, distended, guarding, tenderness Rectal exam: PRESENT: deferred Extremities exam: ABSENT: pedal edema Musculoskeletal exam: PRESENT: ambulatory, normal inspection. ABSENT: deformity Neurological exam: PRESENT: alert, awake, oriented to person, oriented to place, oriented to situation, CN II-XII grossly intact, normal gait Psychiatric exam: PRESENT: appropriate affect. ABSENT: anxious Skin exam: PRESENT: dry, intact, warm Results Laboratory Results: 12/02/18 03:57 12/02/18 03:57 12/02/18 12/02/18 03:57 03:57 WBC 10.0 RBC 4.53 Hgb 12.4 L Hct 36.9 L MCV 81 MCH 27.3 MCHC 33.5 RDW 13.4 Plt Count 416 Seg Neutrophils % 61.3 Lymphocytes % 30.6 Monocytes % 5.8 Eosinophils % 1.8 Basophils % 0.5 Absolute Neutrophils 6.2 Absolute Lymphocytes 3.1 Absolute Monocytes 0.6 Absolute Eosinophils 0.2 Absolute Basophils 0.1 Sodium 137.9 Potassium 5.5 H Chloride 98 Carbon Dioxide 30 Anion Gap 10 BUN 19 Creatinine 0.66 Est GFR ( Amer) > 60 Est GFR (Non-Af Amer) > 60 Glucose 212 H Calcium 9.5 Magnesium 2.1 11/23/18 11/27/18 11/27/18 17:33 23:23 23:23 Creatine Kinase 33 L CK-MB (CK-2) 0.34 Troponin I < 0.012 < 0.012 NT-Pro-B Natriuret Pep 48 11/28/18 11/28/18 11/28/18 06:11 06:11 11:35 Creatine Kinase 26 L 29 L CK-MB (CK-2) 0.32 Troponin I < 0.012 NT-Pro-B Natriuret Pep 11/28/18 11:35 Creatine Kinase CK-MB (CK-2) 0.30 Troponin I < 0.012 NT-Pro-B Natriuret Pep Impressions: Chest/Abdomen CTA 11/23/18 21:18 IMPRESSION: Negative for pulmonary embolus, thoracic aortic aneurysm, or dissection. Cavitary mass in the posterior left lung base, having a lobulated appearance as above. Surrounding ground glass opacity and reticulonodular change. There is also an adjacent pulmonary nodule in the medial left lung base. Tissue diagnosis recommended. This could reflect cavitary neoplasm. Abscess or sequelae of granulomatous disease are other possibilities. TECHNICAL DOCUMENTATION: Quality ID # 436: Final reports with documentation of one or more dose reduction techniques (e.g., Automated exposure control, adjustment of the mA and/or kV according to patient size, use of iterative reconstruction technique) copyright 2011 [employer]- All Rights Reserved Chest X-Ray 12/01/18 00:00 IMPRESSION: Improvement in the left basilar opacity as discussed. No new findings. Qualifiers - * PATIENT BEING DISCHARGED WITH ANY OF THE FOLLOWING DIAGNOSIS: No
[2018-12-02] MEDS ORDERED: MORPHINE SULFATE SR 30 MG TABLET PO SCH (10:00)
== END 2018-12-02 11:43 | disposition home or self-care (01) | DRG 177 ==
LOC: ER 15:37 → EH 22:54 → 3N 11-24 18:20
PROVIDERS: ADMIT Emergency Medicine; ATTEND Emergency Medicine
PROC: 0B9J7ZX Drainage of Left Lower Lung Lobe, Via Natural or Artificial Opening, Diagnostic (ICD-10-PCS; principal; 2018-11-28 07:30)
DX: J85.2 Abscess of lung without pneumonia (principal); B37.1 Pulmonary candidiasis; R04.2 Hemoptysis; B95.4 Other streptococcus as the cause of diseases classified elsewhere; E78.00 Pure hypercholesterolemia, unspecified; I10 Essential (primary) hypertension; E11.42 Type 2 diabetes mellitus with diabetic polyneuropathy; G89.4 Chronic pain syndrome; G40.909 Epilepsy, unspecified, not intractable, without status epilepticus; F41.8 Other specified anxiety disorders; F31.9 Bipolar disorder, unspecified; Z95.1 Presence of aortocoronary bypass graft; Z98.84 Bariatric surgery status; Z79.84 Long term (current) use of oral hypoglycemic drugs; Z79.4 Long term (current) use of insulin; Z79.899 Other long term (current) drug therapy
CPT/HCPCS: 31624; 36415; 71045; 71046; 71275; 80048; 80053; 80061; 80202; 80307; 81001; 82150; 82550; 82553; 82803; 82962; 83036; 83605; 83615; 83690; 83735; 83880; 84100; 84132; 84439; 84443; 84481; 84484; 85025; 85610; 85730; 86701; 87015; 87040; 87070; 87077; 87086; 87101; 87116; 87205; 87206; 93005; 93010; 96360; 96361; 99291; J0171; J0295; J1200; J1610; J1815; J2185; J2250; J2270; J2310; J2405; J2543; J3010; J3370; J3490; J7030; J7060; J7120; S0119

== ENCOUNTER → 2019-01-09 | Outpatient (CLI) | payer MEDICAID, MEDICARE ==
--- NOTE | 2019-01-09 09:20 | RADIOLOGY REPORT (SQ) ---
EXAM DESCRIPTION: CT CHEST WITHOUT COMPLETED DATE/TIME: 01/09/2019 9:11 am REASON FOR STUDY: J98.4 OTHER DISORDERS OF LUNG J98.4 OTHER DISORDERS OF LUNG COMPARISON: Chest x-ray dated 12/01/2018, CT chest dated 11/23/2018. TECHNIQUE: CT scan performed of the chest without intravenous contrast. Images reviewed with lung, soft tissue and bone windows. Reconstructed coronal and sagittal MPR images reviewed. All images st ored on PACS. All CT scanners at this facility use dose modulation, iterative reconstruction, and/or weight based d osing when appropriate to reduce radiation dose to as low as reasonably achievable (ALARA). [facility]: Dose Right [facility]: CareDose [facility]: Dose Right [facility]: Teradose 4D [facility]: [employer] RADIATION DOSE: mGy. LIMITATIONS: No technical limitations. FINDINGS: LUNGS AND PLEURA: The cavitary mass in the left base is significantly smaller in size. Th ere is a small non cavitary subpleural nodule measured at 1.9 cm. Probable associated scarring. The re is minimal surrounding calcification. Lung hickey are otherwise clear. No pleural effusions. HILAR AND MEDIASTINAL STRUCTURES: No identified masses or abnormal nodes. No obvious aneurysm. HEART AND VASCULAR STRUCTURES: No aneurysm. No pericardial effusion. UPPER ABDOMEN: No significant findings. Limited exam. THYROID AND OTHER SOFT TISSUES: No masses. No adenopathy. BONES: No significant finding. HARDWARE: None in the chest. OTHER: No other significant findings. IMPRESSION: Small residual subpleural nodule in left base measured 1.9 cm. This could represent res idual pneumonia or scar. There has been significant improvement since 11/23/2018. No new findings. TECHNICAL DOCUMENTATION: JOB ID: [id number] Quality ID # 436: Final reports with documentation of one or more dose reduction techniques (e.g., Au tomated exposure control, adjustment of the mA and/or kV according to patient size, use of iterative reconstruction technique) 2010 [employer]- All Rights Reserved Reading location - IP/workstation name: [email or web address]
== END ==
LOC: RAD 09:49
PROVIDERS: ATTEND Internal Medicine Critical Care Medicine
DX: J98.4 Other disorders of lung (principal)
CPT/HCPCS: 71250

== ENCOUNTER → 2019-03-26 | Outpatient (CLI) | payer MEDICAID, MEDICARE ==
--- NOTE | 2019-03-26 15:29 | RADIOLOGY REPORT (SQ) ---
EXAM DESCRIPTION: CT CHEST WITHOUT COMPLETED DATE/TIME: 03/26/2019 10:06 am REASON FOR STUDY: (J98.4)OTHER DISORDERS OF LUNG J98.4 OTHER DISORDERS OF LUNG COMPARISON: 01/09/2019 and 11/23/2018. TECHNIQUE: CT scan performed of the chest without intravenous contrast. Images reviewed with lung, soft tissue and bone windows. Reconstructed coronal and sagittal MPR images reviewed. All images st ored on PACS. All CT scanners at this facility use dose modulation, iterative reconstruction, and/or weight based d osing when appropriate to reduce radiation dose to as low as reasonably achievable (ALARA). [facility]: Dose Right [facility]: CareDose [facility]: Dose Right [facility]: Teradose 4D [facility]: [employer] RADIATION DOSE: CT Rad equipment meets quality standard of care and radiation dose reduction techniq ues were employed. CTDIvol: 19.4 mGy. DLP: 773 mGy-cm. mGy. LIMITATIONS: No technical limitations. FINDINGS: LUNGS AND PLEURA: Continued improvement. The previously seen nodular density in the poste rior left lung base has decreased in size and now measures 1.0 cm with prior measurement 1.9 cm. Adj acent linear scarring. The previously seen nodule in the medial left lung base is no longer present. No pleural effusions or pleural calcifications. HILAR AND MEDIASTINAL STRUCTURES: No identified masses or abnormal nodes. No obvious aneurysm. HEART AND VASCULAR STRUCTURES: No aneurysm. No pericardial effusion. UPPER ABDOMEN: No significant findings. Previous gastric surgery. Limited exam. THYROID AND OTHER SOFT TISSUES: No masses. No adenopathy. BONES: No significant finding. HARDWARE: None in the chest. OTHER: No other significant findings. IMPRESSION: CONTINUED IMPROVEMENT. PROGRESSIVE DECREASE IN SIZE OF THE NODULAR DENSITY IN THE POSTE RIOR LEFT LUNG BASE WITH MILD RESIDUAL SCARRING. PREVIOUSLY SEEN NODULE IN THE MEDIAL LEFT LUNG BASE AND PREVIOUSLY SEEN LEFT HILAR ADENOPATHY HAVE RESOLVED. TECHNICAL DOCUMENTATION: JOB ID: [id number] Quality ID # 436: Final reports with documentation of one or more dose reduction techniques (e.g., Au tomated exposure control, adjustment of the mA and/or kV according to patient size, use of iterative reconstruction technique) 2010 [employer]- All Rights Reserved Reading location - IP/workstation name: [email or web address]
== END ==
LOC: RAD 09:52
PROVIDERS: ATTEND Internal Medicine Critical Care Medicine
DX: J98.4 Other disorders of lung (principal)
CPT/HCPCS: 71250

== ENCOUNTER 2019-03-29 16:15 | Emergency (ER) | payer MEDICAID, MEDICARE ==
[2019-03-29] MEDS ORDERED: NORMAL SALINE 1000 ML 1,000 ML IV ONE (18:12)
[2019-03-29] MEDS ORDERED: CEFTRIAXONE 1 GM/D5W RTU 1 GM/50 ML RTUPB IV ONE (18:12)
[2019-03-29] MEDS ORDERED: DEXAMETHASONE SOD PHOS INJ 10 MG/1 ML VIAL IV ONE (18:12)
[2019-03-29] MEDS ORDERED: MORPHINE SULFATE 10 MG/ML INJ IV ONE (19:06)
[2019-03-29 19:27] LABS: ABSOLUTE EOSINOPHILS # (AUTO) 0.1 10^3/uL (0.0-0.6); ABSOLUTE LYMPHOCYTES (AUTO) 1.6 10^3/uL (0.5-4.7); ABSOLUTE MONOCYTES (AUTO) 0.5 10^3/uL (0.1-1.4); ABSOLUTE NEUT (AUTO) 9.2 10^3/uL (1.7-8.2); BASOPHILS % (AUTO) 0.4 % (0-2); EOSINOPHILS % (AUTO) 0.5 % (0-6); HEMATOCRIT 41.5 % (37.9-51.0); HEMOGLOBIN 13.8 g/dL (13.5-17.0); LYMPHOCYTES % (AUTO) 14.3 % (13-45); MEAN CORPUSCULAR HEMOGLOBIN 27.4 pg (27.0-33.4); MEAN CORPUSCULAR HGB CONC 33.2 g/dL (32.0-36.0); MEAN CORPUSCULAR VOLUME 83 fl (80-97); MONOCYTES % (AUTO) 4.4 % (3-13); PLATELET COUNT 217 10^3/uL (150-450); RED BLOOD COUNT 5.03 10^6/uL (4.35-5.55); RED CELL DISTRIBUTION WIDTH 14.7 % (11.5-14.0); SEGMENTED NEUTROPHILS % (AUTO) 80.4 % (42-78); TOTAL CELLS COUNTED % (AUTO) 100 %; WHITE BLOOD COUNT 11.5 10^3/uL (4.0-10.5)
[2019-03-29 19:49] LABS: ALANINE AMINOTRANSFERASE 26 U/L (21-72); ALBUMIN 4.4 g/dL (3.5-5.0); ALKALINE PHOSPHATASE 124 U/L (38-126); ANION GAP 11 (5-19); ASPARTATE AMINO TRANSFERASE 25 U/L (17-59); BILIRUBIN,DIRECT 0.3 mg/dL (0.0-0.4); BLOOD UREA NITROGEN 18 mg/dL (7-20); CALCIUM 9.6 mg/dL (8.4-10.2); CARBON DIOXIDE 30 mmol/L (22-30); CHLORIDE 95 mmol/L (98-107); GLUCOSE 181 mg/dL (75-110); POTASSIUM 4.7 mmol/L (3.6-5.0); TOTAL PROTEIN 7.8 g/dL (6.3-8.2)
--- NOTE | 2019-03-29 20:21 | ER Document Report ---
ED General - General Chief Complaint: Ear Pain Stated Complaint: EAR PAIN Time Seen by Provider: 03/29/19 17:44 Primary Care Provider: JEAN ELIZABETH MD [Primary Care Provider] - Follow up as needed Mode of Arrival: Ambulatory Information source: Patient Notes: Patient is a 43-year-old male presenting to the emergency department with right ear pain. Patient reports significant right ear swelling that extends down into his jaw and neck and shoulder. He denies any trauma to this area. Denies known fever. Denies any nausea, vomiting or diarrhea. TRAVEL OUTSIDE OF THE [place] IN LAST 30 DAYS: No - Related Data Allergies/Adverse Reactions: sertraline HCl [From Zoloft] Allergy (Severe, Verified 03/29/19 16:18) Seizures Dexbrompheniramine [From Drixoral Cold & Flu] Allergy (Intermediate, Verified 03/29/19 16:18) Rapid Irregular Heart Rate pseudoephedrine HCl [From Drixoral Cold & Flu] Allergy (Intermediate, Verified 03/29/19 16:18) Rapid Irregular Heart Rate carbamazepine [From Tegretol] Adverse Reaction (Severe, Verified 03/29/19 16:18) SEIZURE ACTIVITY WHEN COMBINED WITH LAMICTAL lamotrigine [From Lamictal] Adverse Reaction (Severe, Verified 03/29/19 16:18) SEIZURE ACTIVITY WHEN COMBINED WITH TEGRETOL buprenorphine [From Butrans] Adverse Reaction (Intermediate, Verified 03/29/19 16:18) RASH/ITCHING bees Adverse Reaction (Intermediate, Uncoded 03/29/19 16:18) SWELLING AT SITE Past Medical History - General Information source: Patient - Social History Smoking Status: Current Every Day Smoker Frequency of alcohol use: None Drug Abuse: None Family History: CAD, DM, Hypertension Patient has suicidal ideation: No Patient has homicidal ideation: No - Past Medical History Cardiac Medical History: Reports: Hx Hypercholesterolemia, Hx Hypertension Denies: Hx Coronary Artery Disease, Hx DVT, Hx Heart Attack, Hx Pulmonary Embolism Pulmonary Medical History: Reports: Hx Asthma, Hx Pneumonia - pt states at least 10 years ago Denies: Hx Bronchitis, Hx COPD Neurological Medical History: Reports: Hx Seizures - LAST SEIZURE 8MONTHS AGO. Denies: Hx Cerebrovascular Accident Endocrine Medical History: Reports: Hx Diabetes Mellitus Type 1, Hx Diabetes Mellitus Type 2. Denies: Hx Hyperthyroidism, Hx Hypothyroidism Renal/ Medical History: Denies: Hx Peritoneal Dialysis GI Medical History: Reports: Hx Ulcer - WHEN HE WAS 12 TOOK MEDS FOR 1 YEAR/RESOLVED. Denies: Hx Cirrhosis, Hx Hepatitis, Hx Hiatal Hernia Musculoskeletal Medical History: Reports Hx Arthritis, Denies Hx Gout Skin Medical History: Denies Hx Eczema, Denies Hx Psoriasis Psychiatric Medical History: Reports: Hx Anxiety, Hx Bipolar Disorder, Hx Depression Infectious Medical History: Denies: Hx Hepatitis Past Surgical History: Reports: Hx Abdominal Surgery - ruin-y gastric bypass/h ernia, Hx Cardiac Catheterization, Hx Gastric Bypass Surgery, Hx Herniorrhaphy, Hx Orthopedic Surgery - rt foot 3 toes amputated, Other - chest wall cyst removed, skin tumor removed, wisdom teeth removed. Denies: Hx Open Heart Surgery, Hx Pacemaker - Immunizations Immunizations up to date: Yes Hx Diphtheria, Pertussis, Tetanus Vaccination: Yes Hx Pneumococcal Vaccination: 07/17/15 Review of Systems - Review of Systems Constitutional: Fever EENT: Ear pain, Throat pain, Other - cheek and neck pain Cardiovascular: No symptoms reported Respiratory: No symptoms reported Gastrointestinal: No symptoms reported Genitourinary: No symptoms reported Male Genitourinary: No symptoms reported Musculoskeletal: No symptoms reported Skin: No symptoms reported Hematologic/Lymphatic: No symptoms reported Neurological/Psychological: No symptoms reported Physical Exam - Vital signs Vitals: Temp Pulse Resp BP Pulse Ox 98.9 F 129 H 16 132/74 H 93 03/29/19 16:36 03/29/19 16:36 03/29/19 16:36 03/29/19 16:36 03/29/19 16:36 - Notes Notes: PHYSICAL EXAMINATION: GENERAL: Well-appearing, well-nourished and in no acute distress. HEAD: Atraumatic, normocephalic. EYES: Pupils equal round and reactive to light, extraocular movements intact, sclera anicteric, conjunctiva are normal. ENT: Nares patent, oropharynx clear without exudates. Moist mucous membranes. Significant swelling to right ear canal, right face, right jaw and right neck. Positive mastoid tenderness. Unable to visualize right TM. NECK: Normal range of motion, supple without lymphadenopathy, see above. LUNGS: Breath sounds clear to auscultation bilaterally and equal. No wheezes rales or rhonchi. HEART: Regular rate and rhythm without murmurs ABDOMEN: Soft, nontender, nondistended abdomen. No guarding, no rebound. No masses appreciated. Musculoskeletal: Normal range of motion, no pitting or edema. No cyanosis. NEUROLOGICAL: Cranial nerves grossly intact. Normal speech, normal gait. Normal sensory, motor exams PSYCH: Normal mood, normal affect. SKIN: Warm, Dry, normal turgor, no rashes or lesions noted. Course - Re-evaluation Re-evalutation: Labs as recorded are unremarkable. CT soft tissue neck was obtained due to significant swelling and pain to right side of patient's face and ear. CT was negative for any acute pathology other than otitis externa. Patient will be started on Ciprodex. ED return precautions were discussed, patient verbalizes understanding and agreement with same. - Vital Signs Vital signs: Temp Pulse Resp BP Pulse Ox 97.8 F 79 16 134/87 H 96 03/29/19 20:54 03/29/19 20:54 03/29/19 20:54 03/29/19 20:54 03/29/19 20:54 - Laboratory Result Diagrams: 03/29/19 19:00 03/29/19 19:00 Laboratory results interpreted by me: 03/29/19 03/29/19 19:00 19:00 WBC 11.5 H RDW 14.7 H Seg Neutrophils % 80.4 H Absolute Neutrophils 9.2 H Sodium 136.0 L Chloride 95 L Glucose 181 H Discharge - Discharge Clinical Impression: Otitis externa Qualifiers: Otitis externa type: unspecified type Chronicity: acute Laterality: right Qualified Code(s): H60.501 - Unspecified acute noninfective otitis externa, right ear Condition: Stable Disposition: HOME, SELF-CARE Instructions: Otitis Externa ([facility]) Additional Instructions: Please apply 4 drops in the right ear twice daily for 7 days. Take ibuprofen 600 mg every 6 hours. Use the narcotic pain medication for severe pain only. Return to the ED for any new or worsening symptoms to include development of fever, worsening swelling or any other symptom that is concerning to you. Prescriptions: Oxycodone HCl/Acetaminophen [Percocet 5-325 mg Tablet] 1 - 2 tab PO Q4H PRN #12 tablet PRN Reason: Forms: Return to Work Referrals: JEAN ELIZABETH MD [Primary Care Provider] - Follow up as needed
[2019-03-29] MEDS ORDERED: KETOROLAC TROMETHAMINE INJ/PF 30 MG/1 ML SDV IV ONE (20:31)
[2019-03-29] MEDS ORDERED: MORPHINE SULFATE 10 MG/ML INJ ONE (20:33)
--- NOTE | 2019-03-29 20:43 | RADIOLOGY REPORT (SQ) ---
CT NECK CHEST WITH IV CONTRAST HISTORY: Right facial swelling. COMPARISON: None. TECHNIQUE: CT scan of the neck with IV contrast. This exam was performed according to our departmental dose-optimization program, which includes automated exposure control, adjustment of the mA and/or kV according to patient size and/or use of iterative reconstruction technique. FINDINGS: There is asymmetric skin thickening of the right external auditory canal, with mild surrounding inflammatory changes suggestive of external otitis. No fluid collection or abscess. The nasopharynx, oropharynx and hypopharynx are normal. No cervical mass or collection is seen. No aerodigestive tract mass is identified. The parotid, submandibular and thyroid glands are normal. No air-fluid levels in the paranasal sinuses to suggest acute sinusitis. The bony structures are intact. The visualized lungs are clear. IMPRESSION: Findings suggesting right-sided external otitis. No fluid collection or abscess.
[2019-03-29] MEDS ORDERED: CIPROFLOXACIN HCL/DEXAMETH OTIC DROP 7.5 ML AS ONE (20:46)
[2019-03-29 20:55] VITALS: BP 134/87
== END 2019-03-29 21:10 | disposition home or self-care (01) ==
LOC: ER 16:15
DX: H60.501 Unspecified acute noninfective otitis externa, right ear (principal); H92.01 Otalgia, right ear; H93.8X1 Other specified disorders of right ear; R68.84 Jaw pain; M54.2 Cervicalgia; M25.511 Pain in right shoulder; I10 Essential (primary) hypertension; J44.9 Chronic obstructive pulmonary disease, unspecified; E11.9 Type 2 diabetes mellitus without complications
CPT/HCPCS: 99283; 96361; 96375; 96365; 36415; 85025; 80053; 70491; J1885; J2270; J3490; J7030; J0696; J1100